=== PATIENT | female | born 1955 | race Caucasian/White ===

== ENCOUNTER 2020-05-02 09:30 | Outpatient (RCR) | payer OTHER, SELFPAY ==
--- NOTE | 2020-04-23 12:36 | PC.ADMIT ---
Patient is a 65 year old female who was referred by her prescriber Christine Stanley APRN. She started the PHP program today d/t severe anxiety, depression with passive SI, and increase in agitation. Patient stated she is attending [facility] because, I've had anxiety for three years, I've been on so many medications . Pt reports that her anxiety causes her to have depression. Reports poor sleep. Feels medication changes she has had in the past few years have not helped her anxiety. Wants to try group therapy and learn coping skills. Patient feels she can relate to others in the group that have severe anxiety. Pt stated she does have some trauma in her past and feels medication changes have contributed to her PTSD. Appears focused on medication changes and her response to them. Patient reports passive Si over the past few weeks with thoughts of, I can't stand this, it would be easier for everyone if I was not here . Patient denied plan or intent to harm or kill herself. Asked her if she was feeling unsafe who could she reach out to? Patient stated her , and, I am familier with N . Patient also agreed to reach out to staff if feeling unsafe and she gave verbal permission to email her a copy of her safety plan. Medications reconciled with patient, patient's pharmacy, and sploe to Christine Stanley to confirm Effexor dose.
[2020-04-23 13:14] VITALS: BMI 24.9
--- NOTE | 2020-04-23 13:49 | P.HPPSP_ITS ---
HPI Chief Complaint: depression Sources of Information: patient interviewed and chart reviewed HPI Narrative: Patient referred to [facility] by her outpatient psychiatric provider for worsening anxiety. Reports long history of depression and anxiety that was previously well managed by SSRI and PRN lorazepam, until about 3 years ago when previous psychiatric provider left and new provider began to make medication changes and since then she has not felt the same. She reports extreme anxiety all day long, rumination around current medication regimen and feeling stigmatized by being prescribed benzodiazepines. Reports that she felt pressured to enter ATS (detox) to address Lorazepam tapering and withdrawal management--negative experience. Most recent medication change was the addition of Effexor currently at 75mg QD. (last dose increase on 04/01) Current sx: Anxiety from the moment she wakes up. Perseveration around medication and medication administration times. Constant worry that she is never going to feel better Sleep is reported as early awakening--able to fall asleep but awake btwn 4am-5am and does not feel rested Medication trials: Celexa, Trintellex, Wellbutrin, Buspirone, Seroquel, Zoloft, Paxil, Prozac, Cymbalta, Lexapro, Gabapentin, Trileptal, Zyprexa Please see SW intake note for further details [facility] Medical History (Updated 04/23/20 @ 15:20 by Ann Moreno CNP) Hyperlipidemia Hypothyroidism Tinnitus Surgical History (Updated 04/23/20 @ 12:34 by Roxie Stone RN) H/O shoulder surgery History of endometrial ablation Hx of foot surgery Hx of tonsillectomy Diagnostics Vital Signs (24Hr): Body Mass Index 24.9 Meds/Allergies Allergies Allergies Allergy/AdvReac Type Severity Reaction Status Date / Time hydrocortisone Allergy Hives Verified 04/23/20 12:36 Penicillins Allergy Rash Verified 04/23/20 12:36 erythromycin base AdvReac Gastrointestinal Verified 04/23/20 12:36 Upset Mental Status Exam Mental Status Exam Patient Appearance: Well Grooomed and Appropriate Patient Orientation: Person, Place, Time and Situation Level of Consciousness: Awake and Appropriate Patient Behavior: Appropriate, Talkative and Anxious Mood Description: Anxious Affect Description: Anxious Ability to Follow Directions: Excellent Speech Pattern: Clear Thought Process: Intact and Rumination Thought Content: positive for Perseveration and positive for Preoccupation Depressive Symptoms: Increased Anxiety, Difficulty Sleeping and Hopelessness Judgement: Fair Assessment & Plan Assessment & Plan (1) Major depression, recurrent: Status: Acute Code(s): F33.9 - Major depressive disorder, recurrent, unspecified Assessment and Plan: Discussed case with outpatient treatment provider. Plan to increase Effexor to 112.5mg QD (2) Generalized anxiety disorder: Status: Acute Code(s): F41.1 - Generalized anxiety disorder Certification I certify that partial hospital treatment is medically necessary due to the symptoms and problems resulting from the patient's mental illness and the failure to treat the patient at the partial hospital level of care would likely result in the patient requiring inpatient psychiatric care which could not be prevented at a less intensive level of care. Telehealth Telehealth Location of provider rendering services: practice address Location of patient: address on file Telehealth method: video Patient verbally consented to treatment: Yes Patient verbally consented to billing insurance company: Yes Time spent with patient (mins): 40
--- NOTE | 2020-04-24 11:32 | PC.NURSE ---
Called patient to f/u with Effexor prescription. Patient read her prescription bottle over the phone, stated she picked on 04/23/20 Effexor xr 75 mg tab prescription from Christine Stanley APRN. Per Ann Moreno CNP, Effexor is increasing to 112.5 mg. Pharmacy stated she has Effexor 37.5 mg tab waiting for p/u today from Christine Stanley APRN.
--- NOTE | 2020-04-26 15:16 | PC.NURSE ---
I called and spoke to pt about treatment and schedule. She expressed a desire to talk about coping skills more in program, and reported some ambivalence around whether or not the program is helping. Discussed ways to challenge hopelessness, in part by viewing it as a symptom. Pt will zaid to discharge on 05/07/2020.
--- NOTE | 2020-04-29 11:43 | HO.PHPPROGNO ---
Subjective Subjective Date of Service: 04/29/20 Reason For Visit: depression Interim History: Patient reports she increased Effexor dose on evening. Has not noted any side effects, though finds herself worrying about them. She reports difficulty sleeping last evening and is worried this may be related to medication change. Discussed plan to wait an additional week before determining if additional medication changes should be made or not. Supportive listening provided Review of Systems Constitutional: Reports as per HPI and Reports difficulty sleeping Psychiatric: Reports anxiety Mental Status Exam Mental Status Exam Patient Appearance: Well Grooomed Level of Consciousness: Awake, Appropriate and Alert Patient Behavior: Appropriate Mood Description: Anxious Affect Description: Anxious Speech Pattern: Clear Delusions: Not Present Thought Process: Rumination Thought Content: positive for Perseveration Depressive Symptoms: Increased Anxiety and Difficulty Sleeping Judgement: Good Diagnostics Vital Signs (24Hr): Body Mass Index 24.9 Assessment & Plan Assessment & Plan (1) Major depression, recurrent: Status: Acute Code(s): F33.9 - Major depressive disorder, recurrent, unspecified Assessment and Plan: No change to current regimen Follow up one week (2) Generalized anxiety disorder: Status: Acute Code(s): F41.1 - Generalized anxiety disorder Certification I certify that partial hospital treatment is medically necessary due to the symptoms and problems resulting from the patient's mental illness and the failure to treat the patient at the partial hospital level of care would likely result in the patient requiring inpatient psychiatric care which could not be prevented at a less intensive level of care. Greater than 50% of the session was spent on counseling and/or coordination of care Discharge Plan Discharge Attending provider: Be Lee Medications: New venlafaxine 37.5 mg capsule,extended release 24hr 37.5 mg PO BEDTIME Qty: 30 RF: 0 No Action trazodone 50 mg Tablet 25 mg PO BEDTIME RF: 0 levothyroxine 88 mcg Tablet 88 mcg PO 6XW RF: 0 propranolol 10 mg Tablet 10 mg PO BID RF: 0 lorazepam [Ativan] 1 mg Tablet 1 mg PO TID RF: 0 venlafaxine [Effexor XR] 75 mg Capsule,Extended Release 24hr 75 mg PO BEDTIME RF: 0 atorvastatin 10 mg Tablet 10 mg PO BEDTIME RF: 0 levothyroxine 88 mcg Tablet 176 mcg PO QWEEK RF: 0 Telehealth Telehealth Location of provider rendering services: practice address Location of patient: address on file Patient Identification confirmed using: Name, : Yes Telehealth method: video Patient verbally consented to treatment: Yes Patient verbally consented to billing insurance company: Yes Time spent with patient (mins): 15
--- NOTE | 2020-05-01 16:07 | HO.PHPPROGNO ---
Subjective Subjective Date of Service: 05/01/20 Reason For Visit: depression Interim History: Patient requesting follow up reports sleep has been poor, increasing anxiety and shakiness Feels increase in dose is contributing to this Medication Compliance: Yes Side effects from medications: Yes (as reported in HPI) Attending Groups: Yes Review of Systems Constitutional: Reports as per HPI Mental Status Exam Mental Status Exam Patient Appearance: Well Grooomed Patient Orientation: Person, Place, Time and Situation Level of Consciousness: Awake and Alert Patient Behavior: Appropriate and Anxious Mood Description: Anxious Affect Description: Anxious Ability to Follow Directions: Excellent Speech Pattern: Clear Hallucinations: None Delusions: Not Present Thought Process: Rumination Thought Content: positive for Racing Depressive Symptoms: Increased Anxiety, Difficulty Sleeping and Difficulty Concentrating Judgement: Fair Diagnostics Vital Signs (24Hr): Body Mass Index 24.9 Assessment & Plan Assessment & Plan (1) Generalized anxiety disorder: Status: Acute Code(s): F41.1 - Generalized anxiety disorder Assessment and Plan: decrease Effexor dose back to 75mg QD increase trazodone HS dose by 25mg follow up next week (2) Major depression, recurrent: Status: Acute Code(s): F33.9 - Major depressive disorder, recurrent, unspecified Certification I certify that partial hospital treatment is medically necessary due to the symptoms and problems resulting from the patient's mental illness and the failure to treat the patient at the partial hospital level of care would likely result in the patient requiring inpatient psychiatric care which could not be prevented at a less intensive level of care. Greater than 50% of the session was spent on counseling and/or coordination of care Discharge Plan Discharge Attending provider: Be Lee Medications: No Action trazodone 50 mg Tablet 25 mg PO BEDTIME RF: 0 levothyroxine 88 mcg Tablet 88 mcg PO 6XW RF: 0 propranolol 10 mg Tablet 10 mg PO BID RF: 0 lorazepam [Ativan] 1 mg Tablet 1 mg PO TID RF: 0 venlafaxine [Effexor XR] 75 mg Capsule,Extended Release 24hr 75 mg PO BEDTIME RF: 0 atorvastatin 10 mg Tablet 10 mg PO BEDTIME RF: 0 levothyroxine 88 mcg Tablet 176 mcg PO QWEEK RF: 0 Telehealth Telehealth Location of provider rendering services: practice address Location of patient: address on file Patient Identification confirmed using: Name, : Yes Telehealth method: video Patient verbally consented to treatment: Yes Patient verbally consented to billing insurance company: Yes Time spent with patient (mins): 15
--- NOTE | 2020-05-07 07:33 | PC.NURSE ---
LM for pt's therapist, Angelica Carreon, informing her that pt has been discharged and hospitalized.
--- NOTE | 2020-05-07 07:34 | PC.NURSE ---
RM from pt that she had a bad weekend and went to the ED. She said they have secured a bed for her to be admitted inpatient.
== END 2020-05-02 23:55 ==
LOC: HO.PHPA 09:30
PROVIDERS: Visit Provider Psychiatry & Neurology Psychiatry
DX: F33.9 Major depressive disorder, recurrent, unspecified (principal); F41.1 Generalized anxiety disorder
CPT/HCPCS: 90791; 90792; 90853

== ENCOUNTER 2020-05-05 08:43 | Emergency (ER) | payer OTHER, MEDICARE, SELFPAY ==
[2020-05-05 08:55] VITALS: BP 143/77; PULSE 79; RESP 18; TEMP 37.1; O2SAT 97; BMI 24.9
--- NOTE | 2020-05-05 09:01 | ED_ITS ---
HPI - General Adult General Chief complaint: Psychiatric Symptoms Stated complaint: MED REACTION Time Seen by Provider: 05/05/20 08:59 Source: patient Mode of arrival: ambulatory Limitations: no limitations History of Present Illness HPI narrative: 65 y/o female with history of generalized anxiety disorder, hypothyroidism presenting with pins and needles sensation of her lower arms that started in the middle of the night and woke her up. She thinks it might be due to medication changes. She follows with Ann Moreno NP who decreased her Effexor to 75 mg and increased her Trazodone to 25 mg. She states with the increase in Trazodone she falls asleep easily but is up often and has worsening pins and needles sensation in her arms. She is having a hard time sleeping and her anxiety is worsening. She admits to suicidal thoughts and has thought of 3 separate plans to kill herself. She lives with her who is supportive and wants to her get help. She does not feel safe going home because of her worse fantasma anxiety and now suicidal thoughts. MD complaint: anxiety, suicidal thoughts Onset (ago): week(s) Location: upper extremity Radiation: non-radiation Severity: moderate Severity scale (1-10): 6 Quality: other ( tingling ) Pain Consistency: constant Relieving factors: none Exacerbating factors: other (anxiety ) Associated symptoms: other (SI) Treatments prior to arrival: other (ativan 0.5 mg po ) Related Data Home Medications Medication Instructions Recorded Confirmed atorvastatin 10 mg PO BEDTIME 04/23/20 04/23/20 levothyroxine 88 mcg PO 6XW 04/23/20 04/23/20 levothyroxine 176 mcg PO QWEEK 04/23/20 04/23/20 lorazepam [Ativan] 1 mg PO TID 04/23/20 04/23/20 propranolol 10 mg PO BID 04/23/20 04/23/20 trazodone 25 mg PO BEDTIME 04/23/20 04/23/20 venlafaxine [Effexor XR] 75 mg PO BEDTIME 04/23/20 04/23/20 Allergies Allergy/AdvReac Type Severity Reaction Status Date / Time hydrocortisone Allergy Hives Verified 04/23/20 12:36 Penicillins Allergy Rash Verified 04/23/20 12:36 erythromycin base AdvReac Gastrointestinal Verified 04/23/20 12:36 Upset Review of Systems Review of Systems: Constitutional: No Fever, No Chills ENT/Mouth: No sore throat, No Rhinorrhea, No Swallowing Difficulty Eyes: No Eye Pain, No Swelling, No Redness Cardiovascular: No Chest Pain, No SOB, No Orthopnea, No Edema Respiratory: No Cough, No Sputum, No Wheezing, No dyspnea Gastrointestinal: + Nausea, No Vomiting, No Diarrhea, No abdominal Pain Genitourinary: No Dysuria, No Urinary Frequency, No Hematuria Musculoskeletal: No joint pain, No Myalgias Skin: No Skin Lesions, No rash Neuro: No Weakness, + Numbness/Tingling, No Dizziness, No Headache Psych: + Anxiety/Panic, + Depression Heme/Lymph: No Bruising, No Lymphadenopathy Endocrine: No Polyuria, No Polydipsia PMFSH Past Medical History Attestation statement: The following information was validated with the patient. Medical History Hyperlipidemia Hypothyroidism Tinnitus Surgical History (Updated 04/23/20 @ 12:34 by Roxie Stone RN) H/O shoulder surgery History of endometrial ablation Hx of foot surgery Hx of tonsillectomy Social History Social History Household Members: Spouse Smoking Status: Former smoker Advance Directives: No Advance Directives Information Provided: No Physical Exam Vital Signs: Vital Signs: Last Vital Signs Temp 98.8 F 05/05/20 08:55 Pulse 79 05/05/20 08:55 Resp 18 05/05/20 08:55 BP 143/77 H 05/05/20 08:55 Pulse Ox 97 05/05/20 08:55 Body Mass Index 24.9 Appearance: Alert. Oriented X3. No acute distress. Eyes: Pupils equal, round and reactive to light. ENT: Pharynx normal. Neck: Normal inspection. Neck supple. CVS: Normal heart rate and rhythm. Pulses normal. Respiratory: No respiratory distress. Breath sounds normal. Abdomen: Soft and nontender. +BS x4 Skin: Skin warm and dry. Normal skin color. Normal skin turgor. No rashes. Extremities: No lower extremity edema. Neuro: Oriented X 3. No motor deficit. No sensory deficit. Psych: depressed, admits to SI, denies AH/VH. Course Course Course Narrative: 65 y/o female with generalized anxiety presenting with worsening anxiety, sensation of pins and needles in her arms, insomnia that is leading to suicidal thoughts. She admits to 3 different plans - jumping off the [employer] bridge, sitting in her running car in the garage and taking all of her medications at once. Will get basic metabolic workup for tingling sensation including electrolytes and TSH. Will have [facility] evaluate her. Reevaluation(s) Reevaluation #1: Patient seen by CARE team NELLI who has been in contact with her psychiatrist. Inpatient level of care is recommended however given patient's anxiety is it in her best interest not to board in the ER while she awaits an inpatient M5 bed. No beds today but they are anticipating discharges tomorrow. Awaiting CARE team to confirm plan for d/c and return tomorrow with her provider and family. Reevaluation #2: Eryn spoke with Psychiatrist here and patient's who are both comfortable with d/c now and presenting back tomorrow morning for inpatient admission. A M5 bed will be held for her. Patient is agreeable with plan and instructed to return to ER if her symptoms escalate or if she feels unsafe at home. Medical Decision Making Lab Data Result diagrams: 05/05/20 10:04 05/05/20 10:04 Labs: Lab Results 05/05/20 05/05/20 05/05/20 Range/Units 10:04 10:04 10:04 WBC 7.9 (4.8-10.8) X10*3/uL RBC 4.55 (4.20-5.50) X10*6/uL Hgb 14.8 (12.0-16.0) g/dl Hct 44.3 (37-47) % MCV 97.4 (80-98) fL MCH 32.5 (27.0-33.0) pg MCHC 33.4 (31.0-35.0) g/dl RDW 11.9 (11.0-16.0) % Plt Count 219 (160-400) X10*3/uL MPV 11.0 (9.4-12.3) fL Immature Gran % (Auto) 0.3 (0.0-0.4) % Neut % (Auto) 63.4 (45-73) % Lymph % (Auto) 26.4 (20-40) % Bell % (Auto) 8.0 (2-11) % Eos % (Auto) 1.4 (0-4) % Baso % (Auto) 0.5 (0-2) % Lymph # (Auto) 2.1 (1.2-4.9) X10*3/uL Bell # (Auto) 0.6 (0.1-1.2) X10*3/uL Eos # (Auto) 0.1 (0.0-0.4) X10*3/uL Baso # (Auto) 0.0 (0.0-0.2) X10*3/uL Abs Immat Gran (auto) 0.02 (0.00-0.03) X10*3/uL Absolute Neuts (auto) 5.0 (2.0-8.3) X10*3/uL Absolute Nucleated RBC 0.000 (0.0-0.012) X10*3/uL Nucleated RBC % (auto) 0.0 (0.0-0.2) /100WBC Sodium 141 (135-145) mmol/L Potassium 4.6 (3.3-5.1) mmol/l Chloride 106 (96-108) mmol/L Carbon Dioxide 30 H (22-29) mmol/L Anion Gap 10 L (12-20) BUN 14 (9-16) mg/dL Creatinine 0.71 (0.5-1.4) mg/dL Estim Creat Clear Calc 73.7 Estimated GFR > 60 Random Glucose 105 (60-115) mg/dL Calcium 9.2 (8.4-10.2) mg/dL Magnesium 2.0 (1.6-2.6) mg/dL TSH 0.96 (0.32-4.0) mIU/mL Urine Color Urine Appearance Urine pH (5.0-8.0) Ur Specific [place] (1.005-1.025) Urine Protein (NEG-TRACE) MG/DL Urine Glucose (UA) (NEG) MG/DL Urine Ketones (NEG) MG/DL Urine Blood (NEG) Urine Nitrite (NEG) Ur Leukocyte Esterase (NEG) Urine RBC (0) /HPF Urine WBC (0-4) /HPF Ur Squamous Epith Cells /LPF Urine Bacteria /LPF Urine Opiates Screen (Not Detect) Ur Barbiturates Screen (Not Detect) Ur Phencyclidine Scrn (Not Detect) Ur Amphetamines Screen (Not Detect) U Benzodiazepines Scrn (Not Detect) Urine Cocaine Screen (Not Detect) U Marijuana (THC) Screen (Not Detect) Ethyl Alcohol < 10 mg/dL 05/05/20 05/05/20 Range/Units 10:04 10:04 WBC (4.8-10.8) X10*3/uL RBC (4.20-5.50) X10*6/uL Hgb (12.0-16.0) g/dl Hct (37-47) % MCV (80-98) fL MCH (27.0-33.0) pg MCHC (31.0-35.0) g/dl RDW (11.0-16.0) % Plt Count (160-400) X10*3/uL MPV (9.4-12.3) fL Immature Gran % (Auto) (0.0-0.4) % Neut % (Auto) (45-73) % Lymph % (Auto) (20-40) % Bell % (Auto) (2-11) % Eos % (Auto) (0-4) % Baso % (Auto) (0-2) % Lymph # (Auto) (1.2-4.9) X10*3/uL Bell # (Auto) (0.1-1.2) X10*3/uL Eos # (Auto) (0.0-0.4) X10*3/uL Baso # (Auto) (0.0-0.2) X10*3/uL Abs Immat Gran (auto) (0.00-0.03) X10*3/uL Absolute Neuts (auto) (2.0-8.3) X10*3/uL Absolute Nucleated RBC (0.0-0.012) X10*3/uL Nucleated RBC % (auto) (0.0-0.2) /100WBC Sodium (135-145) mmol/L Potassium (3.3-5.1) mmol/l Chloride (96-108) mmol/L Carbon Dioxide (22-29) mmol/L Anion Gap (12-20) BUN (9-16) mg/dL Creatinine (0.5-1.4) mg/dL Estim Creat Clear Calc Estimated GFR Random Glucose (60-115) mg/dL Calcium (8.4-10.2) mg/dL Magnesium (1.6-2.6) mg/dL TSH (0.32-4.0) mIU/mL Urine Color YELLOW Urine Appearance HAZY Urine pH 6.0 (5.0-8.0) Ur Specific [place] 1.025 (1.005-1.025) Urine Protein NEG (NEG-TRACE) MG/DL Urine Glucose (UA) NEG (NEG) MG/DL Urine Ketones NEG (NEG) MG/DL Urine Blood NEG (NEG) Urine Nitrite NEG (NEG) Ur Leukocyte Esterase TRACE H (NEG) Urine RBC 0-2 (0) /HPF Urine WBC 5-9 H (0-4) /HPF Ur Squamous Epith Cells NONE /LPF Urine Bacteria TRACE /LPF Urine Opiates Screen Not Detected (Not Detect) Ur Barbiturates Screen Not Detected (Not Detect) Ur Phencyclidine Scrn Not Detected (Not Detect) Ur Amphetamines Screen Not Detected (Not Detect) U Benzodiazepines Scrn Not Detected (Not Detect) Urine Cocaine Screen Not Detected (Not Detect) U Marijuana (THC) Screen Not Detected (Not Detect) Ethyl Alcohol mg/dL Discharge Plan Discharge Clinical Impression: Generalized anxiety disorder Patient Disposition: Home, Self-Care Instructions: Insomnia (ED), Anxiety (ED) Additional Instructions: Please come back to the hospital tomorrow morning for planned admission for psychiatric care. A bed is being saved for you. Take your medications as prescribed. Recommend taking Benadryl 25 mg tonight to help you sleep. If you have escalating symptoms of anxiety, depression or suicidally at home come back to the ER DARCY. Prescriptions: No Action trazodone 50 mg Tablet 25 mg PO BEDTIME RF: 0 levothyroxine 88 mcg Tablet 88 mcg PO 6XW RF: 0 propranolol 10 mg Tablet 10 mg PO BID RF: 0 lorazepam [Ativan] 1 mg Tablet 1 mg PO TID RF: 0 venlafaxine [Effexor XR] 75 mg Capsule,Extended Release 24hr 75 mg PO BEDTIME RF: 0 atorvastatin 10 mg Tablet 10 mg PO BEDTIME RF: 0 levothyroxine 88 mcg Tablet 176 mcg PO QWEEK RF: 0
--- NOTE | 2020-05-05 09:53 | PC.NURSE ---
care team aware of pt, si with plan.
[2020-05-05 10:10] LABS: MANUAL DIFF FLAG NO
[2020-05-05 10:13] LABS: Basophils Percent Auto 0.5 % (0-2); Eosinophils Absolute Auto 0.1 X10*3/uL (0.0-0.4); Eosinophils Percent Auto 1.4 % (0-4); Hematocrit 44.3 % (37-47); Hemoglobin 14.8 g/dl (12.0-16.0); Imm Gran Abs Auto 0.02 X10*3/uL (0.00-0.03); Imm Gran Pct Auto 0.3 % (0.0-0.4); Lymphocytes Absolute Auto 2.1 X10*3/uL (1.2-4.9); Lymphocytes Percent Auto 26.4 % (20-40); Mean Corpuscular HGB Conc 33.4 g/dl (31.0-35.0); Mean Corpuscular Hemoglobin 32.5 pg (27.0-33.0); Mean Corpuscular Volume 97.4 fL (80-98); Monocytes Absolute Auto 0.6 X10*3/uL (0.1-1.2); Neutrophils Percent Auto 63.4 % (45-73); Platelet Count 219 X10*3/uL (160-400); Red Blood Count 4.55 X10*6/uL (4.20-5.50); Red Cell Distribution Width 11.9 % (11.0-16.0); White Blood Count 7.9 X10*3/uL (4.8-10.8)
[2020-05-05 10:15] LABS: Glucose Urine UA NEG (NEG); Leukocyte Esterase Urine TRACE (NEG); Nitrite Urine NEG (NEG); Specific Gravity - Urine 1.025 (1.005-1.025); Urine Blood NEG (NEG); Urine Ketones NEG (NEG); Urine Protein NEG (NEG-TRACE)
[2020-05-05 10:18] LABS: Appearance Urine HAZY; Color Urine YELLOW
[2020-05-05] MEDS: LORazepam 0.5 MG TABLET PO (10:18)
[2020-05-05 10:32] LABS: Bacteria Urine TRACE /LPF; RBC Urine 0-2 /HPF (0)
[2020-05-05 10:38] LABS: Ethanol < 10 mg/dL
[2020-05-05 10:46] LABS: Anion Gap 10 (12-20); Blood Urea Nitrogen 14 mg/dL (9-16); Calcium 9.2 mg/dL (8.4-10.2); Carbon Dioxide 30 mmol/L (22-29); Chloride 106 mmol/L (96-108); Creatinine Clr Calc Pharmacy 73.7; Estimated Glomerular Filt Rate > 60; Glucose Random 105 mg/dL (60-115); Potassium 4.6 mmol/l (3.3-5.1); Sodium 141 mmol/L (135-145)
[2020-05-05 10:51] LABS: Amphetamine Screen Urine Not Detected (Not Detect); Barbiturates, Urine Not Detected (Not Detect); Benzodiazepines Screen Urine Not Detected (Not Detect); Cannabinoid Screen Urine Not Detected (Not Detect); Cocaine Screen Urine Not Detected (Not Detect); Opiate Screen Urine Not Detected (Not Detect); Phencyclidine Screen Urine Not Detected (Not Detect)
[2020-05-05 11:07] LABS: TSH reflex Free T4 0.96 mIU/mL (0.32-4.0)
== END 2020-05-05 11:45 | disposition home or self-care (01) ==
PROVIDERS: Physician Assistant; Emergency Provider Emergency Medicine Emergency Medical Services; PCP Internal Medicine
DX: F41.1 Generalized anxiety disorder (principal); F43.0 Acute stress reaction; R45.851 Suicidal ideations; T43.215A Adverse effect of selective serotonin and norepinephrine reuptake inhibitors, initial encounter; Y92.9 Unspecified place or not applicable; Z79.899 Other long term (current) drug therapy
CPT/HCPCS: 36415; 80048; 80307; 80320; 81001; 83735; 84443; 85025; 87086; 99284

== ENCOUNTER 2020-05-06 13:04 | Inpatient (IN) | payer OTHER, MEDICARE, SELFPAY ==
[2020-05-06 13:10] VITALS: BP 130/67; PULSE 67; RESP 18; TEMP 36.8; O2SAT 96; BMI 24.9
[2020-05-06 13:48] LABS: COVID-19 Test Negative (Negative); IDNOW Serial# 9DD0AD1C
--- NOTE | 2020-05-06 13:55 | ED.GENADULT ---
HPI - General Adult General Chief complaint: General Medical Stated complaint: covid test then direct admit Time Seen by Provider: 05/06/20 13:55 Source: patient Mode of arrival: ambulatory Limitations: no limitations History of Present Illness HPI narrative: Returns for bed and 5. Patient has history of generalized anxiety disorder has had increasing anxiety suicidal ideation was evaluated in the Emergency yesterday discharge with plan to [facility] bed search from home returns today as bed has been secured on [facility]. She offers no medical complaints. Workup reviewed from 05/05/2020. Onset (ago): day(s) Severity: moderate Pain Consistency: constant Associated symptoms: denies other symptoms Treatments prior to arrival: none Related Data Home Medications Medication Instructions Recorded Confirmed atorvastatin 10 mg PO BEDTIME 04/23/20 04/23/20 levothyroxine 88 mcg PO 6XW 04/23/20 04/23/20 levothyroxine 176 mcg PO QWEEK 04/23/20 04/23/20 lorazepam [Ativan] 1 mg PO TID 04/23/20 04/23/20 propranolol 10 mg PO BID 04/23/20 04/23/20 trazodone 25 mg PO BEDTIME 04/23/20 04/23/20 venlafaxine [Effexor XR] 75 mg PO BEDTIME 04/23/20 04/23/20 Allergies Allergy/AdvReac Type Severity Reaction Status Date / Time hydrocortisone Allergy Hives Verified 04/23/20 12:36 Penicillins Allergy Rash Verified 04/23/20 12:36 erythromycin base AdvReac Gastrointestinal Verified 04/23/20 12:36 Upset Review of Systems Review of Systems: Constitutional: No Weight loss, No Fever, No Chills, No Night Sweats, No Fatigue, No Malaise ENT/Mouth: No Hearing loss, No Ear Pain, No Nasal Congestion, No Sinus Pain, No Hoarseness, No sore throat, No Rhinorrhea, No Swallowing Difficulty Eyes: No Eye Pain, No Swelling, No Redness, No Foreign Body, No Discharge, No Vision Changes Cardiovascular: No Chest Pain, No SOB, No Dyspnea on Exertion, No Orthopnea, No Edema, No Palpitations Respiratory: No Cough, No Sputum, No Wheezing, No Smoke Exposure, No Dyspnea Gastrointestinal: No Nausea, No Vomiting, No Diarrhea, No Constipation, No abdominal Pain, No Hematochezia, No Melena Genitourinary: no irregular bleeding, No Dysuria, No Urinary Frequency, No Hematuria, No Urinary Incontinence, No Urgency, No Flank Pain Musculoskeletal: No joint pain, No Myalgias, No Joint Swelling Skin: No Skin Lesions, No rash Neuro: No Weakness, No Numbness, No Paresthesias, No Loss of Consciousness, No Dizziness, No Headache Psych: noted in HPI , + anxiety/ SI w plan to jump off bridge Heme/Lymph: No Bruising, No Bleeding,No Lymphadenopathy Endocrine: No Polyuria, No Polydipsia, No Temperature Intolerance PMFSH Past Medical History Medical History Hyperlipidemia Hypothyroidism Tinnitus Surgical History H/O shoulder surgery History of endometrial ablation Hx of foot surgery Hx of tonsillectomy Social History Social History Household Members: Spouse Alcohol intake: never Smoking Status: Never smoker Use of substances other than those prescribed or required for medical reasons: No Physical Exam Vital Signs: Vital Signs: Last Vital Signs Temp 98.2 F 05/06/20 13:10 Pulse 67 05/06/20 13:10 Resp 18 05/06/20 13:10 BP 130/67 05/06/20 13:10 Pulse Ox 96 05/06/20 13:10 Body Mass Index 24.9 Reviewed Const: General: cooperative and healthy appearing; No acute distress or intoxicated appearing Nutritional Appearance: average body habitus Orientation/consciousness: patient oriented x3 HENMT: Head: Yes normal to inspection Ears: hearing grossly normal bilaterally Eyes: General: appearance normal, both eyes and all related structures Visual Bowling: normal visual bowling by confrontation Neck: Neck: Yes normal visual inspection and No tender Thyroid: Thyroid normal Chest: Chest palpation & inspection: normal inspection of the chest Resp: Effort & Inspection: normal respiratory effort Auscultation: clear to auscultation bilaterally Cardio: Jugular venous distension: no JVD Rhythm: regular rhythm Heart sounds: S1 normal heart sound present and S2 normal heart sound present GI: Inspection: Yes normal to inspection Palpation (GI): Soft to palpation Percussion: Yes normal to percussion Auscultation: normal bowel sounds : General: Yes no CVA tenderness Back/Spine/Pelvis: Back: no CVA tenderness Skin: General skin exam: no rashes or lesions noted Neuro: General: patient oriented x3 Extrem: General: Yes normal to inspection Course Course Course Narrative: Medically clear for admission to . Rapid COVID negative. Medical Decision Making Lab Data Labs: Lab Results 05/06/20 Range/Units 13:13 COVID-19 ([facility]) Negative (Negative) COVID-19 Clin Com See Note Discharge Plan Discharge Clinical Impression: Generalized anxiety disorder, Major depression, recurrent Patient Disposition: Admitted As Inpatient Prescriptions: No Action trazodone 50 mg Tablet 25 mg PO BEDTIME RF: 0 levothyroxine 88 mcg Tablet 88 mcg PO 6XW RF: 0 propranolol 10 mg Tablet 10 mg PO BID RF: 0 lorazepam [Ativan] 1 mg Tablet 1 mg PO TID RF: 0 venlafaxine [Effexor XR] 75 mg Capsule,Extended Release 24hr 75 mg PO BEDTIME RF: 0 atorvastatin 10 mg Tablet 10 mg PO BEDTIME RF: 0 levothyroxine 88 mcg Tablet 176 mcg PO QWEEK RF: 0
[2020-05-06 13:59] VITALS: BP 113/69; PULSE 68; RESP 16; TEMP 36.8; O2SAT 97
--- NOTE | 2020-05-06 16:18 | MHC.CARE ---
Spoke to patient multiple times throughout the day coordinating her admission, came to the ED today for a COVID swab. Brought to [facility] via transportation security screener, upon arrival to the unit she was tearful and anxious, distressed that she could not have her phone as she uses games and music to cope. Provided support and encouragement, gave a brief tour and showed her to room.
[2020-05-06] MEDS: LORazepam 1 MG TABLET PO (17:34)
[2020-05-06 18:00] VITALS: BP 122/70; PULSE 99; TEMP 36.6
[2020-05-06 20:20] VITALS: BP 122/70; PULSE 99
[2020-05-06] MEDS: Propranolol HCL 10 MG TABLET PO (20:20)
[2020-05-06] MEDS: Venlafaxine HCl ER 75 MG CAP.ER.24H PO (20:20)
--- NOTE | 2020-05-06 21:17 | PC.ADMIT ---
Pt is a 65 year old female who presented to from [facility] ED at approx 16:15 on a CV Status. PT is covid- Utox-. Pt reported and appeared overwhelmed with her anxiety and depressive symptoms. Pt reported inability to sleep. PT diagnosed with generalized anxiety disorder and MDD recurrent. Pt does have out pt services and has community mental health providers. Pt denied SI/hI/VH on admit with no pain. Dr. Lianet Livingston called for orders and notified of admission. Pt is on 15 min safety checks. Pleasant and cooperative on admit but states that she is super anxious. Start treatment plan and monitor for safety checks
--- NOTE | 2020-05-07 | ECG_ITS ---
Test Reason : severe anxiety Blood Pressure : / mmHG Vent. Rate : 076 BPM Atrial Rate : 076 BPM P-R Int : 140 ms QRS Dur : 076 ms QT Int : 404 ms P-R-T Axes : 061 025 019 degrees QTc Int : 454 ms Normal sinus rhythm Possible Left atrial enlargement Borderline ECG No previous ECGs available Referred By: Sophie Negrete Electronically Signed By:ISIAH NICOLE
[2020-05-07 06:25] VITALS: BP 134/77; PULSE 92; RESP 16; TEMP 37; O2SAT 98
[2020-05-07] MEDS: Levothyroxine Sodium 88 MCG TABLET PO (06:33)
[2020-05-07 08:41] VITALS: BP 134/77; PULSE 92
[2020-05-07] MEDS: Propranolol HCL 10 MG TABLET PO ×2 (08:41→20:58)
[2020-05-07] MEDS: LORazepam 0.5 MG TABLET PO ×3 (11:10→20:57)
[2020-05-07] MEDS: Acetaminophen 325 MG TABLET 650 MG PO (14:55)
[2020-05-07] MEDS: hydrOXYzine HCL 25 MG TABLET PO (16:42)
[2020-05-07 18:00] VITALS: BP 152/91; PULSE 89; TEMP 36.2
--- NOTE | 2020-05-07 18:27 | P.HPPS_ITS ---
HPI Chief Complaint: anxiety, depression Sources of Information: patient interviewed, chart reviewed and crisis/core team assessment reviewed HPI Narrative: Nurse practitioners have never helped me . I am here for a psychiatrist. I have tried so many medicines, I feel so hopeless, as the anxiety is just too strong. 65 yo female, reports progressive increase of anxiety, panic sx for the past 36 months without specific precipitant except pt reports sx intensified when pandemic began. Pt reports sx to be so severe she is unable to function. Reports a lifelong hx of SUNITA and success with Lexapro 20 mg daily. Pt had reported feeling tired, Lexapro was decreased to 10 mg and she began to experience insomnia and anxiety. This she reports became a viscious cycle between September-Jun. She made changes in providers-was sent to rehab due to Ativan use, then met with new providers for trials. Reports sleep PHI, JAMIN and no latency sx. Past Psychiatric History: Out Pt: Christine Stanley APRN. Therapist is Angelica Carreon Trials: Paxil, Prozac, Cymbalta, Lexapro, Celexa, Trintellix, Wellbutrin, Sertraline, Buspar, Amoxapine, Seroquel, Olanzapine, Mirtazapine, Gabapentin, Trileptal, Topamax, Trazodone. Hx of work with [facility] [place], Dr. Donald, and [facility]. Reports Mar 2019 Trintellix had mild efficacy. Wellbutrin was added when COVID- 19 began, then changed to Citalopram. In Dec 2019 Propranolol was added and in Feb 2020 Effexor was trialed (sleep is poor after this initiation). [facility] Medical History Hyperlipidemia Hypothyroidism Tinnitus Surgical History H/O shoulder surgery History of endometrial ablation Hx of foot surgery Hx of tonsillectomy Family History: anxiety-mother uses Sertraline, son uses Prozac effectively Anxiety runs on both sides of pt's family Social History: Supportive and children. Works at [employer] Sub[employer] History: Denies Diagnostics Vital Signs (24Hr): Vital Signs - 24 hr 05/06/20 20:20 05/07/20 06:25 05/07/20 08:41 Temperature 98.6 F Pulse Rate 99 92 92 Respiratory Rate 16 Blood Pressure 122/70 134/77 134/77 Pulse Oximetry 98 Body Mass Index 24.9 Labs Labs: Laboratory Results - last 48 hr 05/06/20 13:13 COVID-19 ([facility]) Negative COVID-19 Clin Com See Note Meds/Allergies Meds Home Medications Acetaminophen (Acetaminophen 325 Mg Tablet) 650 mg PO Q6H PRN PRN Reason: Headache/Pain Mild Scale (1-3) Last Admin: 05/07/20 14:55 Dose: 650 mg Documented by: Al Hydroxide/Mg Hydroxide (Magnesium Hydrox/Alum Hydrox 30 Ml Oral.Susp) 30 ml PO Q6H PRN PRN Reason: Heartburn/Nausea Hydroxyzine HCl (Hydroxyzine Hcl 25 Mg Tablet) 25 mg PO BEDTIME PRN PRN Reason: Anxiety Hydroxyzine HCl (Hydroxyzine Hcl 25 Mg Tablet) 25 mg PO Q8H PRN PRN Reason: Anxiety Last Admin: 05/07/20 16:42 Dose: 25 mg Documented by: Levothyroxine Sodium (Levothyroxine Sodium 88 Mcg Tablet) 88 mcg PO [id number] [facility] Last Admin: 05/07/20 06:33 Dose: 88 mcg Documented by: Lorazepam (Lorazepam 0.5 Mg Tablet) 0.5 mg PO TID [facility] Last Admin: 05/07/20 14:24 Dose: 0.5 mg Documented by: Magnesium Hydroxide (Milk Of Magnesia 30 Ml Oral.Susp) 30 ml PO DAILY PRN PRN Reason: Constipation Propranolol HCl (Propranolol Hcl 10 Mg Tablet) 10 mg PO BID [facility]; Protocol Last Admin: 05/07/20 08:41 Dose: 10 mg Documented by: Trazodone HCl (Trazodone Hcl 50 Mg Tablet) 50 mg PO BEDTIME PRN PRN Reason: Insomnia Venlafaxine HCl (Venlafaxine Hcl Er 75 Mg Cap.Er.24h) 75 mg PO BEDTIME [facility] Last Admin: 05/06/20 20:20 Dose: 75 mg Documented by: Allergies Allergies Allergy/AdvReac Type Severity Reaction Status Date / Time hydrocortisone Allergy Hives Verified 04/23/20 12:36 Penicillins Allergy Rash Verified 04/23/20 12:36 erythromycin base AdvReac Gastrointestinal Verified 04/23/20 12:36 Upset Mental Status Exam Mental Status Exam Patient Appearance: Well Grooomed Patient Orientation: Person, Place, Time and Situation Level of Consciousness: Awake, Restless and Alert Patient Behavior: Anxious and Distractible Mood Description: Anxious Affect Description: Constricted Patient Cognition Impaired: No Ability to Follow Directions: Good Speech Pattern: Clear, Appropriate and Spontaneous Speech Memory Description: Intact Hallucinations: None Delusions: Not Present Thought Process: Racing, Distracted and Rumination Thought Content: positive for Issue, positive for Obsessional Thoughts, positive for Circumstantial and positive for Suicidal Ideation (passive) Depressive Symptoms: Increased Anxiety, Increased Irritability, Loss of Int. in Activity, Feelings of Worthlessness, Hopelessness, Isolating-Friends/Family, Increased Fatigue, Thoughts of /Suicide (passive), Low Self Esteem, Loss of Energy and Difficulty Concentrating Abnormal Motor Activity Signs and Symptoms: Agitation and Restlessness Judgement: Fair Assessment & Plan Assessment & Plan (1) Generalized anxiety disorder: Status: Acute Code(s): F41.1 - Generalized anxiety disorder Assessment and Plan: -Pt refuses to work with nurse practitioners as she feels, from previous experience, she was not treated effectively. -Will complete labs, EKG and transfer to Dr. Lee, who is willing. (2) Major depression, recurrent: Status: Acute Code(s): F33.9 - Major depressive disorder, recurrent, unspecified Patient educated on: diagnosis, medication risk/benefits and therapeutic strategies Informed Consent: understands and further education needed Reason for continued inpatient stay Substantial Risk for: inability to function and rapid decompensation
[2020-05-07 19:23] LABS: MANUAL DIFF FLAG NO
[2020-05-07 19:29] LABS: Basophils Absolute Auto 0.1 X10*3/uL (0.0-0.2); Basophils Percent Auto 0.6 % (0-2); Eosinophils Absolute Auto 0.2 X10*3/uL (0.0-0.4); Eosinophils Percent Auto 2.2 % (0-4); Hematocrit 45.8 % (37-47); Hemoglobin 14.9 g/dl (12.0-16.0); Imm Gran Abs Auto 0.04 X10*3/uL (0.00-0.03); Imm Gran Pct Auto 0.5 % (0.0-0.4); Lymphocytes Absolute Auto 3.1 X10*3/uL (1.2-4.9); Lymphocytes Percent Auto 35.5 % (20-40); Mean Corpuscular HGB Conc 32.5 g/dl (31.0-35.0); Mean Corpuscular Volume 98.5 fL (80-98); Mean Platelet Volume 11.4 fL (9.4-12.3); Monocytes Absolute Auto 0.7 X10*3/uL (0.1-1.2); Monocytes Percent Auto 8.3 % (2-11); Neutrophils Absolute Auto 4.7 X10*3/uL (2.0-8.3); Neutrophils Percent Auto 52.9 % (45-73); Platelet Count 231 X10*3/uL (160-400); Red Blood Count 4.65 X10*6/uL (4.20-5.50); Red Cell Distribution Width 11.9 % (11.0-16.0); White Blood Count 8.8 X10*3/uL (4.8-10.8)
[2020-05-07 19:56] LABS: Alanine Aminotransferase 29 U/L (0-31); Albumin Level 4.3 g/dL (3.5-5.0); Alkaline Phosphatase 79 U/L (39-117); Anion Gap 10 (12-20); Aspartate Amino Transferase 20 U/L (5-31); Bilirubin Total 0.4 mg/dL (0.0-1.0); Blood Urea Nitrogen 19 mg/dL (9-16); Calcium 9.5 mg/dL (8.4-10.2); Carbon Dioxide 34 mmol/L (22-29); Chloride 102 mmol/L (96-108); Creatinine Clr Calc Pharmacy 60.9; Estimated Glomerular Filt Rate > 60; Glucose Random 109 mg/dL (60-115); Magnesium 2.1 mg/dL (1.6-2.6); Potassium 4.2 mmol/l (3.3-5.1); Sodium 142 mmol/L (135-145); Total Protein 6.3 g/dL (6.5-8.0)
[2020-05-07 20:16] LABS: TSH reflex Free T4 0.67 mIU/mL (0.32-4.0); Thyroid Stimulating Hormone 0.74 uIU/mL (0.32-4.0); Vitamin D 25-OH Total 38.6 ng/mL (>30)
[2020-05-07 20:29] LABS: Folate 17.5 ng/mL (> or = 4.0); Vitamin B12 417 pg/mL (200-900)
[2020-05-07] MEDS: Venlafaxine HCl ER 75 MG CAP.ER.24H PO (20:57)
[2020-05-07 20:58] VITALS: BP 152/91; PULSE 89
[2020-05-08] MEDS: hydrOXYzine HCL 25 MG TABLET PO ×2 (01:39→11:13)
[2020-05-08] MEDS: traZODone HCL 50 MG TABLET PO (01:53)
[2020-05-08 05:55] VITALS: BP 119/61; PULSE 81; RESP 16; TEMP 36.4; O2SAT 97
[2020-05-08] MEDS: Levothyroxine Sodium 88 MCG TABLET PO (06:36)
[2020-05-08 08:12] VITALS: BP 119/61; PULSE 81
[2020-05-08] MEDS: LORazepam 0.5 MG TABLET PO (08:12)
[2020-05-08] MEDS: Propranolol HCL 10 MG TABLET PO ×3 (08:12→21:21)
--- NOTE | 2020-05-08 09:50 | P.PNPSI_ITS ---
Subjective Subjective Date of Service: 05/16/20 Reason For Visit: anxiety, depression Subjective Notes: Conditional Voluntary Interim History: Pt anxious ruminating hopeless helpless at times no si agreeable to klonapin 1 bid olanzapine hs feels safe going home to manage meds Medication Compliance: Yes Side effects from medications: Yes Mental Status Exam Mental Status Exam Patient Appearance: Well Grooomed Level of Consciousness: Awake and Appropriate Patient Behavior: Appropriate Mood Description: Depressed and Anxious Affect Description: Anxious, Blunted and Apprehensive Ability to Follow Directions: Good Speech Pattern: Perseverating Memory Description: Intact Hallucinations: None Delusions: Not Present Thought Content: positive for Obsessional Thoughts and positive for Suicidal Ideation (denies intent ) Depressive Symptoms: Increased Anxiety, Increased Irritability and Difficulty Concentrating Judgement and Insight: impaired insight at times Diagnostics Vital Signs (24Hr): Vital Signs - 24 hr 05/07/20 18:00 05/07/20 20:58 05/08/20 05:55 Temperature 97.2 F 97.6 F Pulse Rate 89 89 81 Respiratory Rate 16 Blood Pressure 152/91 H 152/91 H 119/61 Pulse Oximetry 97 05/08/20 08:12 Temperature Pulse Rate 81 Respiratory Rate Blood Pressure 119/61 Pulse Oximetry Body Mass Index 24.9 Labs Results: 05/07/20 19:12 05/07/20 19:12 Labs: Laboratory Results - last 48 hr 05/06/20 05/07/20 05/07/20 13:13 19:12 19:12 WBC 8.8 RBC 4.65 Hgb 14.9 Hct 45.8 MCV 98.5 H MCH 32.0 MCHC 32.5 RDW 11.9 Plt Count 231 MPV 11.4 Immature Gran % (Auto) 0.5 H Neut % (Auto) 52.9 Lymph % (Auto) 35.5 [place] % (Auto) 8.3 Eos % (Auto) 2.2 Baso % (Auto) 0.6 Lymph # (Auto) 3.1 [place] # (Auto) 0.7 Eos # (Auto) 0.2 Baso # (Auto) 0.1 Abs Immat Gran (auto) 0.04 H Absolute Neuts (auto) 4.7 Absolute Nucleated RBC 0.000 Nucleated RBC % (auto) 0.0 Sodium 142 Potassium 4.2 Chloride 102 Carbon Dioxide 34 H Anion Gap 10 L BUN 19 H Creatinine 0.86 Estim Creat Clear Calc 60.9 Estimated GFR > 60 Random Glucose 109 Calcium 9.5 Magnesium 2.1 Total Bilirubin 0.4 AST 20 ALT 29 Alkaline Phosphatase 79 Total Protein 6.3 L Albumin 4.3 Vitamin B12 25-OH Vitamin D Total 38.6 Folate TSH 0.74 COVID-19 ([facility]) Negative COVID-19 Clin Com See Note 05/07/20 05/07/20 19:12 19:12 WBC RBC Hgb Hct MCV MCH MCHC RDW Plt Count MPV Immature Gran % (Auto) Neut % (Auto) Lymph % (Auto) [place] % (Auto) Eos % (Auto) Baso % (Auto) Lymph # (Auto) [place] # (Auto) Eos # (Auto) Baso # (Auto) Abs Immat Gran (auto) Absolute Neuts (auto) Absolute Nucleated RBC Nucleated RBC % (auto) Sodium Potassium Chloride Carbon Dioxide Anion Gap BUN Creatinine Estim Creat Clear Calc Estimated GFR Random Glucose Calcium Magnesium Total Bilirubin AST ALT Alkaline Phosphatase Total Protein Albumin Vitamin B12 417 25-OH Vitamin D Total Folate 17.5 TSH 0.67 COVID-19 ([facility]) COVID-19 Clin Com Medications Medications Current Medications Generic Name Dose Route Start Last Admin Trade Name Freq PRN Reason Stop Dose Admin Acetaminophen 650 mg 05/06/20 15:42 05/07/20 14:55 Acetaminophen 325 Mg Tablet PO 650 mg Q6H PRN Administration Headache/Pain Mild Scale (1-3) Al Hydroxide/Mg Hydroxide 30 ml 05/06/20 15:42 Magnesium Hydrox/Alum Hydrox 30 Ml Oral.Susp PO Q6H PRN Heartburn/Nausea Hydroxyzine HCl 25 mg 05/06/20 15:42 05/08/20 01:39 Hydroxyzine Hcl 25 Mg Tablet PO 25 mg BEDTIME PRN Administration Anxiety Hydroxyzine HCl 25 mg 05/07/20 16:30 05/07/20 16:42 Hydroxyzine Hcl 25 Mg Tablet PO 25 mg Q8H PRN Administration Anxiety Levothyroxine Sodium 88 mcg 05/07/20 06:00 05/08/20 06:36 Levothyroxine Sodium 88 Mcg Tablet PO 88 mcg [id number]@0600 [facility] Administration Lorazepam 0.5 mg 05/07/20 15:00 05/08/20 08:12 Lorazepam 0.5 Mg Tablet PO 0.5 mg TID [facility] Administration Magnesium Hydroxide 30 ml 05/06/20 15:42 Milk Of Magnesia 30 Ml Oral.Susp PO DAILY PRN Constipation Propranolol HCl 10 mg 05/06/20 21:00 05/08/20 08:12 Propranolol Hcl 10 Mg Tablet PO 10 mg BID [facility] Administration Protocol Trazodone HCl 50 mg 05/06/20 15:42 05/08/20 01:53 Trazodone Hcl 50 Mg Tablet PO 50 mg BEDTIME PRN Administration Insomnia Venlafaxine HCl 75 mg 05/06/20 21:00 05/07/20 20:57 Venlafaxine Hcl Er 75 Mg Cap.Er.24h PO 75 mg BEDTIME [facility] Administration Allergies Allergies Allergy/AdvReac Type Severity Reaction Status Date / Time hydrocortisone Allergy Hives Verified 04/23/20 12:36 Penicillins Allergy Rash Verified 04/23/20 12:36 erythromycin base AdvReac Gastrointestinal Verified 04/23/20 12:36 Upset Assessment & Plan Assessment & Plan (1) Generalized anxiety disorder: Status: Acute Code(s): F41.1 - Generalized anxiety disorder (2) Major depression, recurrent: Status: Acute Code(s): F33.9 - Major depressive disorder, recurrent, unspecified Assessment and Plan: lower effexor not helpful would taper d/c outpt Greater than 50% of the session was spent on counseling and/or coordination of care
[2020-05-08] MEDS: clonazePAM 1 MG TABLET PO (13:19)
[2020-05-08 14:15] VITALS: BP 115/73; PULSE 101
[2020-05-08] MEDS: Acetaminophen 325 MG TABLET 650 MG PO (17:23)
[2020-05-08 17:52] VITALS: BP 125/62; PULSE 88; RESP 18; TEMP 36.8; O2SAT 99
[2020-05-08 18:00] VITALS: BP 125/62; PULSE 88; RESP 18; TEMP 36.8; O2SAT 99
[2020-05-08 21:21] VITALS: BP 135/75; PULSE 75
[2020-05-08] MEDS: OLANZapine 2.5 MG TABLET PO (21:23)
[2020-05-08] MEDS: clonazePAM 0.5 MG TABLET PO (21:28)
[2020-05-08] MEDS: Venlafaxine HCl ER 37.5 MG CAP.ER.24H PO (22:14)
[2020-05-09 06:00] VITALS: BP 117/68; PULSE 77; TEMP 36.7; O2SAT 98
[2020-05-09] MEDS: Levothyroxine Sodium 88 MCG TABLET PO (06:38)
[2020-05-09 08:53] VITALS: BP 117/68; PULSE 107
[2020-05-09] MEDS: Propranolol HCL 10 MG TABLET PO ×3 (08:53→20:41)
[2020-05-09] MEDS: clonazePAM 0.5 MG TABLET PO ×2 (08:54→12:45)
[2020-05-09 14:38] VITALS: BP 112/68; PULSE 75
[2020-05-09] MEDS: OLANZapine 2.5 MG TABLET PO ×2 (16:54→20:39)
[2020-05-09] MEDS: Venlafaxine HCl ER 37.5 MG CAP.ER.24H PO (20:40)
[2020-05-09] MEDS: clonazePAM 1 MG TABLET PO (20:40)
[2020-05-09 20:41] VITALS: BP 117/58; PULSE 75
[2020-05-09 20:45] VITALS: BP 117/58; PULSE 75; TEMP 36.3
[2020-05-10] MEDS: Levothyroxine Sodium 88 MCG TABLET PO (06:18)
[2020-05-10 06:50] VITALS: BP 108/71; PULSE 79; RESP 16; TEMP 36.4; O2SAT 98
[2020-05-10 09:19] VITALS: BP 108/71; PULSE 79
[2020-05-10] MEDS: clonazePAM 1 MG TABLET PO (09:19)
[2020-05-10] MEDS: Propranolol HCL 10 MG TABLET PO (09:19)
--- NOTE | 2020-05-10 11:40 | P.PNPSI_ITS ---
Subjective Subjective Date of Service: 05/11/20 Reason For Visit: anxiety, depression Subjective Notes: Conditional Voluntary Interim History: Pt planned for dc today, arranged by dr Lee doing better some light headedness from tid dosing of propranlol discussed strategies for management Medication Compliance: Yes Side effects from medications: Yes (mild light headedness or dizziness) Attending Groups: Yes Review of Systems Medical Review of Systems: changed Review of Systems: see note above Mental Status Exam Mental Status Exam Patient Appearance: Well Grooomed Patient Orientation: Person, Place, Time and Situation Level of Consciousness: Awake Patient Behavior: Appropriate Mood Description: Calm Affect Description: Calm Patient Cognition Impaired: No Ability to Follow Directions: Good Speech Pattern: Clear Hallucinations: None Delusions: Not Present Thought Process: Intact Thought Content: positive for Intact Judgement: Good Diagnostics Vital Signs (24Hr): Vital Signs - 24 hr 05/09/20 14:38 05/09/20 20:41 05/09/20 20:45 Temperature 97.4 F Pulse Rate 75 75 75 Respiratory Rate Blood Pressure 112/68 117/58 L 117/58 L Pulse Oximetry 05/10/20 06:50 05/10/20 09:19 Temperature 97.6 F Pulse Rate 79 79 Respiratory Rate 16 Blood Pressure 108/71 108/71 Pulse Oximetry 98 Body Mass Index 24.9 Labs Results: 05/07/20 19:12 05/07/20 19:12 Medications Medications Current Medications Generic Name Dose Route Start Last Admin Trade Name Freq PRN Reason Stop Dose Admin Acetaminophen 650 mg 05/06/20 15:42 05/08/20 17:23 Acetaminophen 325 Mg Tablet PO 650 mg Q6H PRN Administration Headache/Pain Mild Scale (1-3) Al Hydroxide/Mg Hydroxide 30 ml 05/06/20 15:42 Magnesium Hydrox/Alum Hydrox 30 Ml Oral.Susp PO Q6H PRN Heartburn/Nausea Clonazepam 0.5 mg 05/08/20 17:35 05/09/20 12:45 Clonazepam 0.5 Mg Tablet PO 0.5 mg BID PRN Administration anxiety/restlessness Clonazepam 1 mg 05/09/20 21:00 05/10/20 09:19 Clonazepam 1 Mg Tablet PO 1 mg BID [facility] Administration Hydroxyzine HCl 25 mg 05/06/20 15:42 05/08/20 01:39 Hydroxyzine Hcl 25 Mg Tablet PO 25 mg BEDTIME PRN Administration Anxiety Levothyroxine Sodium 88 mcg 05/07/20 06:00 05/10/20 06:18 Levothyroxine Sodium 88 Mcg Tablet PO 88 mcg [id number]@0600 [facility] Administration Magnesium Hydroxide 30 ml 05/06/20 15:42 Milk Of Magnesia 30 Ml Oral.Susp PO DAILY PRN Constipation Olanzapine 2.5 mg 05/08/20 21:00 05/09/20 20:39 Olanzapine 2.5 Mg Tablet PO 2.5 mg BEDTIME [facility] Administration Olanzapine 2.5 mg 05/08/20 17:31 05/09/20 16:54 Olanzapine 2.5 Mg Tablet PO 2.5 mg BID PRN Administration anxiety/restlessness Propranolol HCl 10 mg 05/08/20 14:15 05/10/20 09:19 Propranolol Hcl 10 Mg Tablet PO 10 mg TID [facility] Administration Protocol Trazodone HCl 50 mg 05/06/20 15:42 05/08/20 01:53 Trazodone Hcl 50 Mg Tablet PO 50 mg BEDTIME PRN Administration Insomnia Venlafaxine HCl 37.5 mg 05/08/20 21:45 05/09/20 20:40 Venlafaxine Hcl Er 37.5 Mg Cap.Er.24h PO 37.5 mg BEDTIME [facility] Administration Allergies Allergies Allergy/AdvReac Type Severity Reaction Status Date / Time hydrocortisone Allergy Hives Verified 04/23/20 12:36 Penicillins Allergy Rash Verified 04/23/20 12:36 erythromycin base AdvReac Gastrointestinal Verified 04/23/20 12:36 Upset Assessment & Plan Assessment & Plan (1) Major depression, recurrent: Status: Acute Code(s): F33.9 - Major depressive disorder, recurrent, unspecified Assessment and Plan: stable for d (2) Generalized anxiety disorder: Status: Acute Code(s): F41.1 - Generalized anxiety disorder Assessment and Plan: some s/e from [facility] discussed timing of doses for management Greater than 50% of the session was spent on counseling and/or coordination of care
[2020-05-10 14:32] VITALS: BP 111/57; PULSE 92
--- NOTE | 2020-05-10 20:34 | PM.PSYDC ---
DS: Providers Provider Date of Service: 05/10/20 Date of admission: 05/06/20 15:01 Primary care physician: Cristiana Weeks MD DS: Diagnosis Discharge Diagnosis (1) Generalized anxiety disorder: Status: Acute (2) Major depression, recurrent: Status: Acute DS: Medications Discharge Medications Home Medications: Home Medications Medication Instructions Recorded Confirmed atorvastatin 10 mg PO BEDTIME 04/23/20 04/23/20 levothyroxine 88 mcg PO 6XW 04/23/20 05/06/20 levothyroxine 176 mcg PO QWEEK 04/23/20 04/23/20 Previous Rx's Medication Instructions Recorded clonazepam 1 mg PO BID 15 Days #35 tab 05/10/20 olanzapine 2.5 mg PO BEDTIME 30 Days #40 tab 05/10/20 venlafaxine 37.5 mg PO BEDTIME #30 cap 05/10/20 propranolol 10 mg PO TID #45 tab 05/11/20 Discharge Plan Discharge Patient Disposition: Home, Self-Care Referrals: Angelica Carreon (therapist) [Other] - 05/15/20 12:00 pm Cristiana Weeks MD [Primary Care Provider] - Judie Stanley APRN [Advanced Practice Nurse] - 05/14/20 () Discharge Medications: New venlafaxine 37.5 mg Capsule,Extended Release 24hr 37.5 mg PO BEDTIME Qty: 30 RF: 0 clonazepam 1 mg Tablet 1 mg PO BID 15 Days Qty: 35 RF: 0 olanzapine 2.5 mg Tablet 2.5 mg PO BEDTIME 30 Days Qty: 40 RF: 0 propranolol 10 mg Tablet 10 mg PO TID Qty: 45 RF: 0 Continued levothyroxine 88 mcg Tablet 88 mcg PO 6XW RF: 0 atorvastatin 10 mg Tablet 10 mg PO BEDTIME RF: 0 levothyroxine 88 mcg Tablet 176 mcg PO QWEEK RF: 0 Discontinued trazodone 50 mg Tablet 25 mg PO BEDTIME RF: 0 lorazepam [Ativan] 1 mg Tablet 1 mg PO TID RF: 0 venlafaxine [Effexor XR] 75 mg Capsule,Extended Release 24hr 75 mg PO BEDTIME RF: 0 Discharge Orders: Discharge Order (Routine); Ordered 05/10/20 Ordered By: Lianet Bloom Diet: advance to usual diet Activity on Discharge: As tolerated Stand Alone Forms: Community Support Visit Report Forms: Patient Portal Discharge page Care Plan Goals: stable mood improved anxiety and stress tolerance no self-harm Health Concerns: recurrent anxiety and depression Plan of Treatment: psychotherapy yoga relaxation techniques reading look up Meuse headband clonazepam twice a day may take a half tablet daily as needed for anxiety Effexor lowered to 37.5 mg daily consideration will be given to stopping unless you response to lower dose consider use of Anafranil discuss with Harsha Grier nurse practitioner olanzapine 2.5 mg at bedtime you may take additional half to 1 tab daily he his house Patient Instructions: Depression (DC), Help Prevent Suicide (DC) Discharge Date/Time: 05/10/20 14:42 DS: Summary Hospital Course Hospital Course: HPI Chief Complaint: depression Sources of Information: patient interviewed and chart reviewed HPI Narrative: Patient referred to [facility] by her outpatient psychiatric provider for worsening anxiety. Reports long history of depression and anxiety that was previously well managed by SSRI and PRN lorazepam, until about 3 years ago when previous psychiatric provider left and new provider began to make medication changes and since then she has not felt the same. She reports extreme anxiety all day long, rumination around current medication regimen and feeling stigmatized by being prescribed benzodiazepines. Reports that she felt pressured to enter ATS (detox) to address Lorazepam tapering and withdrawal management--negative experience. Most recent medication change was the addition of Effexor currently at 75mg QD. (last dose increase on 04/01) Current sx: Anxiety from the moment she wakes up. Perseveration around medication and medication administration times. Constant worry that she is never going to feel better Sleep is reported as early awakening--able to fall asleep but awake btwn 4am-5am and does not feel rested Medication trials: Celexa, Trintellex, Wellbutrin, Buspirone, Seroquel, Zoloft, Paxil, Prozac, Cymbalta, Lexapro, Gabapentin, Trileptal, Zyprexa Please see SW intake note for further details [facility] Medical History (Updated 04/23/20 @ 15:20 by Ann Moreno CNP) Hyperlipidemia Hypothyroidism Tinnitus Surgical History (Updated 04/23/20 @ 12:34 by Roxie Stone RN) H/O shoulder surgery History of endometrial ablation Hx of foot surgery Hx of tonsillectomy HOSPITAL COURSE THE PATIENT WAS ADMITTED TO THE [facility] FOR PS[facility] ON A VOLUNTARY BASIS PATIENT WAS QUITE DEPRESSED ANXIOUS RUMINATING WITH OBSESSIONAL THOUGHTS FEARS REGARDING MEDICATION SIDE EFFECTS. A PATIENT WAS AMBIVALENT REGARDING TRYING DIFFERENT MEDICATION AND WAS SOMEWHAT AMBIVALENT ABOUT BEING IN THE HOSPITAL. THE REQUIREMENT WAS QUITE ANXIETY PROVOKING FOR THE PATIENT . PATIENT DESCRIBED INTERMITTENT THOUGHTS THAT SHE WISHED SHE WERE BUT DENIED PLAN OR INTENT. EVENTUALLY WITH MUCH ENCOURAGEMENT THE PATIENT AGREED TO TAPER EFFEXOR WHICH DID NOT APPEAR TO BE HELPFUL AND MAY BEEN CONTRIBUTING TO ANXIETY CLONAZEPAM WAS STARTED INCREASED UP TO 1 MG TWICE A DAY OLANZAPINE STARTED FOR TREATMENT RESISTANT ANXIETY AND DEPRESSION. THE PATIENT WAS QUITE INSISTENT ON BEING DISCHARGED May STATING THAT THE ENVIRONMENT OF THE UNIT WAS OVERLY STIMULATING IN CONTRIBUTING TO INCREASED ANXIETY. CASE WAS REVIEWED WITH HER OUTPATIENT PSYCHIATRIC PROVIDER HARSHA GRIER. EFFEXOR WAS LOWERED TO 37.5 MG CLONAZEPAM 1 MG TWICE A DAY OLANZAPINE 2.5 MG AT BEDTIME WITH A DATE DAILY P.R.N.. THE PATIENT WAS DISCHARGED BY DR. LIANET BLOOM CONSIDERATION COULD BE GIVEN TO THE POSSIBILITY OF ECT IF NEEDED IN THE FUTURE PATIENT STATED SHE AND HER FELT SAFE WITH HER BEING DISCHARGED SHE CONTINUED TO HAVE ANXIETY AND DEPRESSIVE SYMPTOMS. Time Spent with Patient Time attestation: Total time spent providing and/or coordinating discharge services:
== END 2020-05-10 14:42 | disposition home or self-care (01) | DRG 751 ==
LOC: HO.ED 14:08 → HO.PM5 15:06
PROVIDERS: Clinical Nurse Specialist Psychiatric/Mental Health, Adult; Admitting Provider Psychiatry & Neurology Psychiatry; Emergency Provider Emergency Medicine Emergency Medical Services; PCP Internal Medicine; Visit Provider Psychiatry & Neurology Psychiatry
DX: F33.9 Major depressive disorder, recurrent, unspecified (principal); R45.851 Suicidal ideations; F41.1 Generalized anxiety disorder; E03.9 Hypothyroidism, unspecified; E78.5 Hyperlipidemia, unspecified; Z20.828 Contact with and (suspected) exposure to other viral communicable diseases; Z88.0 Allergy status to penicillin; Z79.890 Hormone replacement therapy; Z79.899 Other long term (current) drug therapy
CPT/HCPCS: 36415; 80053; 82306; 82607; 82746; 83735; 84443; 85025; 87635; 93005; 99223; 99232; 99283; 99285

== ENCOUNTER 2021-04-11 13:00 | Outpatient (RCR) | payer OTHER, SELFPAY ==
--- NOTE | 2021-02-03 21:09 | P.CONTMS_ITS ---
History of Present Illness General Data Date of Service: 02/03/21 Reason for consult: tms evaluation forced severe depression and anxiety Requesting provider: Judie Stanley History of Present Illness The patient is a 66-year-old female history of severe recurrent depression generalized anxiety disorder last seen in April of 2020 under similar circumstances. The patient has been feeling quite desperate depressed anxious ruminating obsessional concerns on a daily basis regarding medication whether it is helping her or making her worse. She has most recently been on Zyprexa 5 mg Luvox was recently increased to 250 mg. Patient is anxious ruminating hopeless helpless despondent with thoughts that she would be better off . She denies intent to hurt herself stating her connection family helps her. There are no psychotic symptoms. No classic obsessional OCD thoughts such as images of violence or sex no significant checking or cleaning rituals she does ruminate for much of the day and has a hard time concentrating and functioning. She has not had ECT or TMS treatment. The patient is getting increasingly desperate head has been about 3 years since she felt like herself. No manic symptoms noted. Patient does take medicine as prescribed. She has not had trials of Depakote Trileptal or Lamictal. She has not tried Anafranil. Past Psychiatric History/Medication Trials: Since the patient has been in this episode she has had significant trials of Effexor to 150 mg citalopram to 30 mg escitalopram 20 mg fluvoxamine 250 mg quetiapine 100 mg Trintellix 20 mg with reported no response adequate trials and compliance buspirone 15 b.i.d. Wellbutrin up to 450 mg daily COUNT INCLUDES THE [facility] Medical History Hyperlipidemia Hypothyroidism Tinnitus Surgical History H/O shoulder surgery History of endometrial ablation Hx of foot surgery Hx of tonsillectomy Family History: anxiety-mother uses Sertraline, son uses Prozac effectively Anxiety runs on both sides of pt's family Social History: Supportive and children. Works at [employer] Substance History: none Trauma History: none although past 3 years of severe symptomatology and not responding has been quite traumatic Meds/Allergies Meds Narrative: Current medication includes Luvox to 150 mg daily Zyprexa 2.5-5 mg daily clonazepam 0.5 mg in the morning 1 mg in the afternoon Levothyroxine 88 micro g daily propranolol t.i.d. 10 mg Allergies Allergies Allergy/AdvReac Type Severity Reaction Status Date / Time hydrocortisone Allergy Hives Verified 04/23/20 12:36 Penicillins Allergy Rash Verified 04/23/20 12:36 erythromycin base AdvReac Gastrointestinal Verified 04/23/20 12:36 Upset Mental Status Exam Mental Status Exam Level of Consciousness: Awake Patient Behavior: Appropriate Mood Description: Constricted, Anxious, Sad and Apprehensive Affect Description: Constricted, Anxious and Apprehensive Patient Cognition Impaired: No Ability to Follow Directions: Excellent Speech Pattern: Clear and Appropriate Hallucinations: None Delusions: Not Present Thought Content: positive for Obsessional Thoughts and positive for Suicidal Ideation (Thought she would be better off denies intent states she can maintain safety) Depressive Symptoms: Increased Anxiety, Loss of Int. in Activity, Hopelessness, Isolating-Friends/Family, Thoughts of /Suicide and Difficulty Concentrating Judgement: Good Judgement and Insight: Patient understanding she needs help accepting of treatment asking responsible questions able to take in information Assessment & Plan Assessment & Plan (1) Major depressive disorder, recurrent severe without psychotic features: Status: Acute Code(s): F33.2 - Major depressive disorder, recurrent severe without psychotic features Assessment and Plan: see below (2) Generalized anxiety disorder: Status: Acute Code(s): F41.1 - Generalized anxiety disorder Assessment and Plan: The patient is a 66-year-old female with history of severe recurrent depression generalized anxiety obsessional symptoms not responded to standard treatment. I did discuss with the patient different treatment options and we went over the pros and cons of TMS. We also discussed the patient's ability to maintain safety as an outpatient which she states she can do including staying safe with medication. I did also briefly discussed with the patient option of ECT if she did not respond or tolerate TMS. Case reviewed and discussed with Christine Damian Patient has no contraindications to TMS. No history of surgery above the header neck no metallic implants no cochlear implants no pacemaker no history of seizures. Greater than 50% of the session was spent on counseling and/or coordination of care Patient educated on: diagnosis, medication risk/benefits, ECT and TMS Informed Consent: understands
--- NOTE | 2021-02-24 17:51 | HO.TMSDAILY2 ---
TMS Daily Progress Note Daily TMS Progress Note Date of Service: 02/24/21 Week #: 1 Treatment #(06-08): 1 PHQ-9 Pre-Treatment (06-05): 23 PHQ-9 Most Recent (06-05): 23 Reviewed: TMS Mapping/Re-mapping completed Verification: I have reviewed the TMS Pilot Plant Research Technician Note and agree with the contents. The patient remains a candidate to continue TMS treatment per protocol.
--- NOTE | 2021-02-25 17:57 | HO.TMSDAILY2 ---
TMS Daily Progress Note Daily TMS Progress Note Date of Service: 02/25/21 Week #: 1 Treatment #(06-08): 2 PHQ-9 Pre-Treatment (06-05): 23 PHQ-9 Most Recent (06-05): 23 Reviewed: TMS Tech Note Reviewed Verification: I have reviewed the TMS Epidemiology Intern Note and agree with the contents. The patient remains a candidate to continue TMS treatment per protocol.
--- NOTE | 2021-02-25 21:40 | P.PNPS_ITS ---
TMS Daily Progress Note Daily TMS Progress Note Date of Service: 02/25/21 Week #: 1 Treatment #(06-08): 2 PHQ-9 Pre-Treatment (06-05): 23 PHQ-9 Most Recent (06-05): 23 Reviewed: TMS Tech Note Reviewed Verification: I have reviewed the TMS Head Wood Grinder Note and agree with the contents. The patient remains a candidate to continue TMS treatment per pro tocol.
--- NOTE | 2021-02-26 21:22 | P.PNPS_ITS ---
TMS Daily Progress Note Daily TMS Progress Note Date of Service: 02/26/21 Week #: 1 Treatment #(06-08): 3 PHQ-9 Pre-Treatment (06-05): 23 PHQ-9 Most Recent (06-05): 23 Reviewed: TMS Tech Note Reviewed Verification: I have reviewed the TMS Laundry Attendant Note and agree with the contents. The patient remains a candidate to continue TMS treatment per pr otocol. Assessment and Plan (1) Major depressive disorder, recurrent severe without psychotic features: Status: Acute (2) Generalized anxiety disorder: Status: Acute Patient has started on a Anafranil she is being treated by Christine Damian nurse practitioner psychiatrically . Tolerating treatment monitor for any increased agitation continue current treatment protocol
--- NOTE | 2021-03-03 22:37 | P.PNPS_ITS ---
TMS Daily Progress Note Daily TMS Progress Note Date of Service: 03/03/21 Week #: 2 Treatment #(06-08): 6 PHQ-9 Pre-Treatment (06-05): 23 PHQ-9 Most Recent (06-05): 23 Reviewed: TMS Tech Note Reviewed Verification: I have reviewed the TMS Order To Delivery Supervisor Note and agree with the contents. The patient remains a candidate to continue TMS treatment per pr otocol. Assessment and Plan (1) Major depressive disorder, recurrent severe without psychotic features: Status: Acute (2) Generalized anxiety disorder: Status: Acute severe depression continue tms
--- NOTE | 2021-03-04 22:33 | P.PNPS_ITS ---
TMS Daily Progress Note Daily TMS Progress Note Date of Service: 02/27/21 Week #: 1 Treatment #(06-08): 4 PHQ-9 Pre-Treatment (06-05): 23 PHQ-9 Most Recent (06-05): 23 Reviewed: TMS Tech Note Reviewed Verification: I have reviewed the TMS Hadoop Admin Note and agree with the contents. The patient remains a candidate to continue TMS treatment per pr otocol. Assessment and Plan (1) Major depressive disorder, recurrent severe without psychotic features: Status: Acute (2) Generalized anxiety disorder: Status: Acute severe depression continue tms
--- NOTE | 2021-03-04 22:41 | P.PNPS_ITS ---
TMS Daily Progress Note Daily TMS Progress Note Date of Service: 03/04/21 Week #: 2 Treatment #(06-08): 7 PHQ-9 Pre-Treatment (06-05): 23 PHQ-9 Most Recent (06-05): 23 Reviewed: TMS Tech Note Reviewed Verification: I have reviewed the TMS Certified Forklift Operator Note and agree with the contents. The patient remains a candidate to continue TMS treatment per pr otocol. Assessment and Plan (1) Major depressive disorder, recurrent severe without psychotic features: Status: Acute (2) Generalized anxiety disorder: Status: Acute severe depression continue tms r/l tx
--- NOTE | 2021-03-05 21:16 | P.PNPS_ITS ---
TMS Daily Progress Note Daily TMS Progress Note Date of Service: 03/05/21 Week #: 2 Treatment #(06-08): 8 PHQ-9 Pre-Treatment (06-05): 23 PHQ-9 Most Recent (06-05): 23 Reviewed: TMS Tech Note Reviewed Verification: I have reviewed the TMS Student Liaison Officer Note and agree with the contents. The patient remains a candidate to continue TMS treatment per pr otocol. Assessment and Plan (1) Major depressive disorder, recurrent severe without psychotic features: Status: Acute (2) Generalized anxiety disorder: Status: Acute severe depression continue tms r/l tx
--- NOTE | 2021-03-06 21:17 | P.PNPS_ITS ---
TMS Daily Progress Note Daily TMS Progress Note Date of Service: 03/06/21 Week #: 2 Treatment #(06-08): 9 PHQ-9 Pre-Treatment (06-05): 23 PHQ-9 Most Recent (06-05): 23 Reviewed: TMS Tech Note Reviewed Verification: I have reviewed the TMS Materials Handling Coordinator Note and agree with the contents. The patient remains a candidate to continue TMS treatment per pr otocol. Assessment and Plan (1) Major depressive disorder, recurrent severe without psychotic features: Status: Acute (2) Generalized anxiety disorder: Status: Acute severe depression continue tms r/l tx
--- NOTE | 2021-03-07 18:51 | HO.TMSDAILY2 ---
TMS Daily Progress Note Daily TMS Progress Note Date of Service: 03/07/21 Week #: 2 Treatment #(06-08): 10 PHQ-9 Pre-Treatment (06-05): 23 PHQ-9 Most Recent (06-05): 23 Reviewed: TMS Tech Note Reviewed Verification: I have reviewed the TMS Photographic Machine Operator Note and agree with the contents. The patient remains a candidate to continue TMS treatment per protocol. Assessment and Plan (1) Major depressive disorder, recurrent severe without psychotic features: Status: Acute (2) Generalized anxiety disorder: Status: Acute cont tx plan no adverse effects on anafranil
--- NOTE | 2021-03-10 21:17 | HO.TMSDAILY2 ---
TMS Daily Progress Note Daily TMS Progress Note Date of Service: 03/10/21 Week #: 3 Treatment #(06-08): 11 PHQ-9 Pre-Treatment (06-05): 23 PHQ-9 Most Recent (06-05): 23 Reviewed: TMS Tech Note Reviewed Verification: I have reviewed the TMS Professor Of Sport Management Note and agree with the contents. The patient remains a candidate to continue TMS treatment per protocol. Assessment and Plan (1) Major depressive disorder, recurrent severe without psychotic features: Status: Acute (2) Generalized anxiety disorder: Status: Acute cont tx plan no adverse effects on anafranil
--- NOTE | 2021-03-11 22:00 | P.PNPS_ITS ---
TMS Daily Progress Note Daily TMS Progress Note Date of Service: 03/11/21 Week #: 3 Treatment #(06-08): 12 PHQ-9 Pre-Treatment (06-05): 23 PHQ-9 Most Recent (06-05): 23 Reviewed: TMS Tech Note Reviewed Verification: I have reviewed the TMS Assistant Golf Professional Note and agree with the contents. The patient remains a candidate to continue TMS treatment per caridad swanson.no change to this point coordinate with rasta rodriguez np ect remains an option as does esketamine
--- NOTE | 2021-03-12 21:49 | HO.TMSDAILY2 ---
TMS Daily Progress Note Daily TMS Progress Note Date of Service: 03/12/21 Week #: 3 Treatment #(06-08): 13 PHQ-9 Pre-Treatment (06-05): 23 PHQ-9 Most Recent (06-05): 23 Reviewed: TMS Tech Note Reviewed Verification: I have reviewed the TMS Bead Forming Machine Operator Note and agree with the contents. The patient remains a candidate to continue TMS treatment per protocol. Assessment and Plan (1) Major depressive disorder, recurrent severe without psychotic features: Status: Acute (2) Generalized anxiety disorder: Status: Acute cont tx plan will consider remapping
--- NOTE | 2021-03-13 22:18 | HO.TMSDAILY2 ---
TMS Daily Progress Note Daily TMS Progress Note Date of Service: 03/13/21 Week #: 3 Treatment #(06-08): 14 PHQ-9 Pre-Treatment (06-05): 23 PHQ-9 Most Recent (06-05): 23 Reviewed: TMS Tech Note Reviewed Verification: I have reviewed the TMS Senior Information Security Analyst Note and agree with the contents. The patient remains a candidate to continue TMS treatment per protocol. Assessment and Plan (1) Major depressive disorder, recurrent severe without psychotic features: Status: Acute (2) Generalized anxiety disorder: Status: Acute cont tx plan will consider remapping DISCUSSED WITH PT
--- NOTE | 2021-03-14 21:09 | HO.TMSDAILY2 ---
TMS Daily Progress Note Daily TMS Progress Note Date of Service: 03/14/21 Week #: 3 Treatment #(06-08): 15 PHQ-9 Pre-Treatment (06-05): 23 PHQ-9 Most Recent (06-05): 23 Reviewed: TMS Tech Note Reviewed Verification: I have reviewed the TMS Dry Wall Plasterer Note and agree with the contents. The patient remains a candidate to continue TMS treatment per protocol.
--- NOTE | 2021-03-17 20:29 | P.PNPS_ITS ---
TMS Daily Progress Note Daily TMS Progress Note Date of Service: 03/17/21 Week #: 4 Treatment #(06-08): 16 PHQ-9 Pre-Treatment (06-05): 23 PHQ-9 Most Recent (06-05): 23 Reviewed: TMS Tech Note Reviewed Verification: I have reviewed the TMS Advanced Practice Professional Note and agree with the contents. The patient remains a candidate to continue TMS treatment per p kiki. Assessment and Plan (1) Major depressive disorder, recurrent severe without psychotic features: Status: Acute (2) Generalized anxiety disorder: Status: Acute pt with severe anxiety may be related to med changes will discuss with GRINDING ROOM SUPERVISOR
--- NOTE | 2021-03-18 20:35 | P.PNPS_ITS ---
TMS Daily Progress Note Daily TMS Progress Note Date of Service: 03/18/21 Week #: 3 Treatment #(06-08): 17 PHQ-9 Pre-Treatment (06-05): 23 PHQ-9 Most Recent (06-05): 23 Reviewed: TMS Tech Note Reviewed Verification: I have reviewed the TMS Inshore Undersea Warfare Officer Note and agree with the contents. The patient remains a candidate to continue TMS treatment per p kiki. Assessment and Plan (1) Major depressive disorder, recurrent severe without psychotic features: Status: Acute (2) Generalized anxiety disorder: Status: Acute Discussed remapping would recommend no medication changes further at this time if possible [place] is not to confound result of TMS and will bring down MT
--- NOTE | 2021-03-19 21:58 | HO.TMSDAILY2 ---
TMS Daily Progress Note Daily TMS Progress Note Date of Service: 03/19/21 Week #: 4 Treatment #(06-08): 18 PHQ-9 Pre-Treatment (06-05): 23 PHQ-9 Most Recent (06-05): 23 Reviewed: TMS Tech Note Reviewed Verification: I have reviewed the TMS Nursing Home Assistant Administrator Note and agree with the contents. The patient remains a candidate to continue TMS treatment per protocol. Assessment and Plan (1) Major depressive disorder, recurrent severe without psychotic features: Status: Acute (2) Generalized anxiety disorder: Status: Acute Discussed remapping would recommend no medication changes further at this time if possible so not to confound result of TMS pt feels calmer after TMS
--- NOTE | 2021-03-20 23:13 | P.CNPS_ITS ---
History of Present Illness Chief Complaint: depression HPI Past Psychiatric History: Out Pt: Christine Stanley APRN. Therapist is Angelica Carreon Trials: Paxil, Prozac, Cymbalta, Lexapro, Celexa, Trintellix, Wellbutrin, Sertraline, Buspar, Amoxapine, Seroquel, Olanzapine, Mirtazapine, Gabapentin, Trileptal, Topamax, Trazodone. Hx of work with [facility] [place], Dr. Donald, and [facility]. Reports Mar 2019 Trintellix had mild efficacy. Wellbutrin was added when COVID- 19 began, then changed to Citalopram. In Dec 2019 Propranolol was added and in Feb 2020 Effexor was trialed (sleep is poor after this initiation). [facility] Medical History Hyperlipidemia Hypothyroidism Tinnitus Surgical History H/O shoulder surgery History of endometrial ablation Hx of foot surgery Hx of tonsillectomy Family History: anxiety-mother uses Sertraline, son uses Prozac effectively Anxiety runs on both sides of pt's family Social History: Supportive and children. Works at [employer] Trauma History: none although past 3 years of severe symptomatology and not responding has been quite traumatic Medications Allergies Allergies Allergy/AdvReac Type Severity Reaction Status Date / Time hydrocortisone Allergy Hives Verified 04/23/20 12:36 Penicillins Allergy Rash Verified 04/23/20 12:36 erythromycin base AdvReac Gastrointestinal Verified 04/23/20 12:36 Upset Assessment & Plan I spent minutes with the patient and/or on the patient floor today, greater than?50% of which was spent counseling/coordinating care.
--- NOTE | 2021-03-25 21:28 | HO.TMSDAILY2 ---
TMS Daily Progress Note Daily TMS Progress Note Date of Service: 03/25/21 Week #: 3 Treatment #(06-08): 19 PHQ-9 Pre-Treatment (06-05): 23 PHQ-9 Most Recent (06-05): 23 Reviewed: TMS Mapping/Re-mapping completed Verification: I have reviewed the TMS Tire Service Supervisor Note and agree with the contents. The patient remains a candidate to continue TMS treatment per protocol.Was able to recalculate position and mt had improved calculation
--- NOTE | 2021-03-26 23:01 | HO.TMSDAILY2 ---
TMS Daily Progress Note Daily TMS Progress Note Date of Service: 03/26/21 Week #: 5 Treatment #(06-08): 21 PHQ-9 Pre-Treatment (06-05): 23 PHQ-9 Most Recent (06-05): 23 Reviewed: TMS Tech Note Reviewed Verification: I have reviewed the TMS Wool Hat Finisher Note and agree with the contents. The patient remains a candidate to continue TMS treatment per protocol. Assessment and Plan (1) Major depressive disorder, recurrent severe without psychotic features: Status: Acute (2) Generalized anxiety disorder: Status: Acute remapping completed monitor response
--- NOTE | 2021-03-27 23:01 | HO.TMSDAILY2 ---
TMS Daily Progress Note Daily TMS Progress Note Date of Service: 03/27/21 Week #: 5 Treatment #(06-08): 22 PHQ-9 Pre-Treatment (06-05): 23 PHQ-9 Most Recent (06-05): 23 Reviewed: TMS Tech Note Reviewed Verification: I have reviewed the TMS Chicken Catcher Note and agree with the contents. The patient remains a candidate to continue TMS treatment per protocol.
--- NOTE | 2021-03-28 16:28 | HO.TMSDAILY2 ---
TMS Daily Progress Note Daily TMS Progress Note Date of Service: 03/29/21 Week #: 5 Treatment #(06-08): 22 PHQ-9 Pre-Treatment (06-05): 23 PHQ-9 Most Recent (06-05): 23 Reviewed: TMS Tech Note Reviewed Verification: I have reviewed the TMS Accounts Payable Supervisor Note and agree with the contents. The patient remains a candidate to continue TMS treatment per protocol.
--- NOTE | 2021-03-31 23:35 | P.PNPS_ITS ---
TMS Daily Progress Note Daily TMS Progress Note Date of Service: 03/31/21 Week #: 5 Treatment #(06-08): 24 PHQ-9 Pre-Treatment (06-05): 23 PHQ-9 Most Recent (06-05): 23 Reviewed: TMS Tech Note Reviewed Verification: I have reviewed the TMS Overhead Crane Truck Loader Note and agree with the contents. The patient remains a candidate to continue TMS treatment per p kiki.
--- NOTE | 2021-04-01 22:10 | P.PNPS_ITS ---
TMS Daily Progress Note Daily TMS Progress Note Date of Service: 04/01/21 Week #: 5 Treatment #(06-08): 25 PHQ-9 Pre-Treatment (06-05): 23 PHQ-9 Most Recent (06-05): 23 Reviewed: TMS Tech Note Reviewed Verification: I have reviewed the TMS Rattle Leak And Squeak Repairer Note and agree with the contents. The patient remains a candidate to continue TMS treatment per p kiki.
--- NOTE | 2021-04-02 16:27 | P.PNPS_ITS ---
TMS Daily Progress Note Daily TMS Progress Note Date of Service: 04/07/21 Week #: 6 Treatment #(06-08): 26 PHQ-9 Pre-Treatment (06-05): 23 PHQ-9 Most Recent (06-05): 23 Reviewed: TMS Tech Note Reviewed Verification: I have reviewed the TMS Emerging Solutions Executive Note and agree with the contents. The patient remains a candidate to continue TMS treatment per p kiki.
--- NOTE | 2021-04-07 23:09 | P.PNPS_ITS ---
TMS Daily Progress Note Daily TMS Progress Note Date of Service: 04/07/21 Week #: 6 Treatment #(06-08): 27 PHQ-9 Pre-Treatment (06-05): 23 PHQ-9 Most Recent (06-05): 23 Reviewed: TMS Tech Note Reviewed Verification: I have reviewed the TMS Aircraft Maintenance Supervisor Note and agree with the contents. The patient remains a candidate to continue TMS treatment per p kiki. Assessment and Plan (1) Major depressive disorder, recurrent severe without psychotic features: Status: Acute (2) Generalized anxiety disorder: Status: Acute no clear improvement lexapro was recently added
--- NOTE | 2021-04-08 23:21 | HO.TMSDAILY2 ---
TMS Daily Progress Note Daily TMS Progress Note Date of Service: 04/08/21 Week #: 6 Treatment #(06-08): 27 PHQ-9 Pre-Treatment (06-05): 23 PHQ-9 Most Recent (06-05): 23 Reviewed: TMS Tech Note Reviewed Verification: I have reviewed the TMS Cabinetmaker Supervisor Note and agree with the contents. The patient remains a candidate to continue TMS treatment per protocol. Assessment and Plan (1) Major depressive disorder, recurrent severe without psychotic features: Status: Acute (2) Generalized anxiety disorder: Status: Acute no clear improvement lexapro was recently added SINCE NO CLEAR IMPROVEMENT TO THIS POINT DISCUSSED JUST TRYING RIGHT-SIDED TREATMENT LEFT-SIDED TREATMENT MAY BE PERHAPS CONTRIBUTING TO ANXIETY OR NOT RESPONDING TO LEFT-SIDED TREATMENT LITERATURE REVIEW SUGGEST RIGHT-SIDED TREATMENT CAN BE EQUALLY EFFECTIVE LESS TENDENCY TOWARD ANXIETY PATIENT UNDERSTANDS THIS IS NOT HER NORMAL PROTOCOL
--- NOTE | 2021-04-09 22:11 | HO.TMSDAILY2 ---
TMS Daily Progress Note Daily TMS Progress Note Date of Service: 04/09/21 Week #: 6 Treatment #(06-08): 29 PHQ-9 Pre-Treatment (06-05): 23 PHQ-9 Most Recent (06-05): 23 Reviewed: TMS Tech Note Reviewed Verification: I have reviewed the TMS Airline Security Representative Note and agree with the contents. The patient remains a candidate to continue TMS treatment per protocol. Assessment and Plan (1) Major depressive disorder, recurrent severe without psychotic features: Status: Acute (2) Generalized anxiety disorder: Status: Acute no clear improvement lexapro was recently added SINCE NO CLEAR IMPROVEMENT TO THIS POINT DISCUSSED JUST TRYING RIGHT-SIDED TREATMENT LEFT-SIDED TREATMENT MAY BE PERHAPS CONTRIBUTING TO ANXIETY OR NOT RESPONDING TO LEFT-SIDED TREATMENT LITERATURE REVIEW SUGGEST RIGHT-SIDED TREATMENT CAN BE EQUALLY EFFECTIVE LESS TENDENCY TOWARD ANXIETY PATIENT UNDERSTANDS THIS IS NOT HER NORMAL PROTOCOL
== END 2021-04-14 15:23 | disposition admitted as inpatient to this hospital (09) ==
LOC: HO.PTMS 13:00
PROVIDERS: Visit Provider Psychiatry & Neurology Psychiatry
DX: F33.2 Major depressive disorder, recurrent severe without psychotic features (principal); F41.1 Generalized anxiety disorder; Z79.899 Other long term (current) drug therapy
CPT/HCPCS: 90867; 90868; 90869

== ENCOUNTER 2021-04-11 13:34 | Emergency (ER) | payer OTHER, SELFPAY ==
--- NOTE | 2021-04-11 | ECG_ITS ---
Test Reason : MEDICAL CLEARANCE Blood Pressure : / mmHG Vent. Rate : 077 BPM Atrial Rate : 077 BPM P-R Int : 136 ms QRS Dur : 076 ms QT Int : 394 ms P-R-T Axes : 044 025 040 degrees QTc Int : 445 ms Artifact in tracing Normal sinus rhythm Normal ECG When compared with ECG of 08-MAY-2020 09:02, No significant change was found Referred By: Generic ED Physician Electronically Signed By:ISIAH NICOLE
[2021-04-11 13:46] VITALS: BP 154/84; PULSE 82; RESP 16; TEMP 36.6; O2SAT 95; BMI 23.5
--- NOTE | 2021-04-11 13:58 | ED_ITS ---
HPI - Anxiety General Chief Complaint: Anxiety Stated Complaint: CRISIS Time Seen by Provider: 04/11/21 13:57 Source: patient Mode of arrival: ambulatory Limitations: no limitations History of Present Illness HPI narrative: This is a 66-year-old female past medical history significant for anxiety, depression presenting to the emergency department with increasing anxiety for a few days. Patient tells me she had TMS schduled this moring here with Dr. Lee and she reported to him that her anxiety has been progr essively worsening, and debilitating. She tells me that she is just anxious about a lot of different things, but she is unable to pinpoint 1 specific event. She is here for medical clearance and she will be a direct admission to . She tells me that she has been having hard stool and is wondering if she can have stool softeners. She has no other medical complaints at this time. She denies chest pain, shortness of breath, fevers, chills, nausea, vomiting, abdominal pain. Denies visual, auditory and tactile hallucinations. Denies current SI and HI. MD complaint: anxiety Onset (ago): day(s) (2.) Severity: severe Quality: constant Place: home History of similar episodes: Yes Provoking factors: none known Relieving factors: nothing Exacerbating factors: nothing Associated symptoms: other (hard stool) Related Data Home Medications Medication Instructions Recorded Confirmed atorvastatin 10 mg tablet 10 mg PO BEDTIME 04/23/20 04/11/21 levothyroxine 88 mcg tablet 88 mcg PO SUMOTUWETHFR@0600 04/23/20 04/11/21 levothyroxine 88 mcg tablet 176 mcg PO SA@0600 04/23/20 04/11/21 calcium carbonate 500 mg calcium 500 mg PO DAILY 04/11/21 04/11/21 (1,250 mg) tablet (Calcium 500) cholecalciferol (vitamin D3) 25 25 mcg PO DAILY 04/11/21 04/11/21 mcg (1,000 unit) tablet (Vitamin D3) clonazepam 0.5 mg tablet 0.25 mg PO BID 04/11/21 04/11/21 clonazepam 0.5 mg tablet 0.5 tab PO DAILY@1200 04/11/21 04/11/21 cyclosporine 0.05 % eye drops in a 1 drp OPHTHALMIC (EYE) DAILY 04/11/21 04/11/21 dropperette (Restasis) docusate sodium 100 mg capsule 100 mg PO DAILY PRN 04/11/21 04/11/21 (Colace) escitalopram oxalate 10 mg tablet 10 mg PO BEDTIME 04/11/21 04/11/21 multivitamin 1 tab PO DAILY 04/11/21 04/11/21 olanzapine 2.5 mg tablet 2.5 mg PO BID 04/11/21 04/11/21 propranolol 10 mg tablet 20 mg PO BID 04/11/21 04/11/21 Allergies Allergy/AdvReac Type Severity Reaction Status Date / Time hydrocortisone Allergy Hives Verified 04/23/20 12:36 Penicillins Allergy Rash Verified 04/23/20 12:36 erythromycin base AdvReac Gastrointestinal Verified 04/23/20 12:36 Upset Review of Systems Review of Systems: Constitutional : No Weight loss, No Fever, No Chills, No Fatigue, No Malaise ENT/Mouth : No sore throat, No Rhinorrhea Eyes: No Eye Pain, No Swelling, No Redness Cardiovascular : No Chest Pain, No SOB, No Dyspnea on Exertion, No Orthopnea, No Edema, No Palpitations Respiratory : No Cough, No Sputum, No Wheezing Gastrointestinal : No Nausea, No Vomiting, No Diarrhea, No Constipation, No abdominal Pain, No Hematochezia, No Melena Genitourinary : No Dysuria, No Urinary Frequency, No Hematuria, Musculoskeletal : No joint pain, No Myalgias, No Joint Swelling Skin : No Skin Lesions, No rash Neuro : No Weakness, No Numbness, No Dizziness, No Headache Psych : + Anxiety/Panic, + Depression, No SI/HI All other systems reviewed and are negative [facility] Past Medical History Attestation statement: The following information was validated with the patient. Source: old records reviewed and nursing notes reviewed Medical History Hyperlipidemia Hypothyroidism Tinnitus Surgical History H/O shoulder surgery History of endometrial ablation Hx of foot surgery Hx of tonsillectomy Social History Social History Household Members: Spouse Housing: House Do you presently have visiting nurse or other home services: No Alcohol intake: never Smoked in Last 30 Days: No Second Hand Smoke Exposure: No Use of substances other than those prescribed or required for medical reasons: No Advance Directives: No Advance Directives Information Provided: Yes service: No Sexual orientation: Straight/Heterosexual Physical Exam Vital Signs: Vital Signs: Last Vital Signs Temp 97.9 F 04/11/21 13:46 Pulse 82 04/11/21 13:46 Resp 16 04/11/21 13:46 BP 154/84 H 04/11/21 13:46 Pulse Ox 95 04/11/21 13:46 BMI result Body Mass Index 23.5 VSS slightly hypertensive likely secondary to anxiety Appearance: Alert.? Oriented X3.? No acute distress.? Head: Normocephalic, atraumatic, no step-offs or deformities Eyes: Pupils equal, round and reactive to light.? ENT: Pharynx normal.? Neck: Normal inspection.? Neck supple.? CVS: Normal heart rate and rhythm.? Pulses normal.? Respiratory: No respiratory distress.? Breath sounds normal.? Abdomen: Soft and nontender.? Skin: Skin warm and dry.? Normal skin color.? Normal skin turgor.? Extremities: No lower extremity edema.? No calf ttp. 5/5 strength to bilateral upper and lower extremities Back: No midline tenderness, no C-spine tenderness, full range of motion, no CVA tenderness bilaterally Neuro: Oriented X 3.? No motor deficit.? No sensory deficit. CN 2-12 intact Course Reevaluation(s) Reevaluation #1: Labs show no leukocytosis, no anemia, no acute electrolyte abnormalities. Urine not concerning for UTI, likely contaminants. Urine tox screen negative. COVID negative. At this time patient is medically cleared. Patient will be placed in physician observation to lumbar time to be placed up stairs on M5. At time of vision observation was started vital signs are stable. Lungs are clear, regular rate and rhythm, abdomen soft nontender nondistended. No focal neuro deficits Time: 15:43 MDM - Anxiety MDM Narrative Medical decision making narrative: 1400 66-year-old female past medical history significant for major depression, anxiety presenting to the emergency department with complaints of increasing anxiety. She had TMS schduled this moring here with Dr. Lee and she reported to him that her anxiety has been progressively worsening, and debilitating. Patinet needs to be medically cleared and will be a direct admit to On physical examination patient appears anxious, no acute distress. S1-S2 appreciated free of murmurs. Lungs are clear. Abdomen soft nontender nondistended. No focal neuro deficits. Cranial nerves 2-12 intact. Plan at this time is to obtain basic labs, EKG, COVID, U tox. Patient will be given senna and Colace for constipation. Medical Records Attestation: I reviewed the patient's medical records. Lab Data Attestation: I reviewed the patient's lab results. Result diagrams: 04/11/21 14:36 04/11/21 14:36 Labs: Lab Results 04/11/21 04/11/21 04/11/21 Range/Units 14:36 14:36 14:36 WBC 9.4 (4.8-10.8) X10*3/uL RBC 4.67 (4.20-5.50) X10*6/uL Hgb 15.0 (12.0-16.0) g/dl Hct 44.4 (37.0-47.0) % MCV 95.1 (80.0-98.0) fL MCH 32.1 (27.0-33.0) pg MCHC 33.8 (31.0-35.0) g/dl RDW 12.0 (11.0-16.0) % Plt Count 225 (160-400) X10*3/uL MPV 11.3 (9.4-12.3) fL Immature Gran % (Auto) 0.4 (0.0-0.4) % Neut % (Auto) 67.0 (45-73) % Lymph % (Auto) 24.8 (20-40) % [place] % (Auto) 6.5 (2-11) % Eos % (Auto) 1.0 (0-4) % Baso % (Auto) 0.3 (0-2) % Lymph # (Auto) 2.3 (1.2-4.9) X10*3/uL [place] # (Auto) 0.6 (0.1-1.2) X10*3/uL Eos # (Auto) 0.1 (0.0-0.4) X10*3/uL Baso # (Auto) 0.0 (0.0-0.2) X10*3/uL Abs Immat Gran (auto) 0.04 H (0.00-0.03) X10*3/uL Absolute Neuts (auto) 6.3 (2.0-8.3) x10*3/uL Absolute Nucleated RBC 0.000 (0.0-0.012) X10*3/uL Nucleated RBC % (auto) 0.0 (0.0-0.2) /100WBC Sodium 141 (135-145) mmol/L Potassium 4.3 (3.3-5.1) mmol/L Chloride 106 (96-108) mmol/L Carbon Dioxide 27 (22-29) mmol/L Anion Gap 12 (12-20) BUN 17 H (9-16) mg/dL Creatinine 0.75 (0.5-1.4) mg/dL Estim Creat Clear Calc 63.7 Estimated GFR > 60 Random Glucose 138 H (60-115) mg/dL Calcium 10.1 D (8.4-10.2) mg/dL Urine Opiates Screen (Not Detect) Urine Fentanyl Screen (Not Detect) Ur Barbiturates Screen (Not Detect) Ur Phencyclidine Scrn (Not Detect) Ur Amphetamines Screen (Not Detect) U Benzodiazepines Scrn (Not Detect) Urine Cocaine Screen (Not Detect) U Marijuana (THC) Screen (Not Detect) Ethyl Alcohol mg/dL COVID-19 ([facility]) Negative (Negative) COVID-19 Clin Com See Note 04/11/21 04/11/21 Range/Units 14:36 14:36 WBC (4.8-10.8) X10*3/uL RBC (4.20-5.50) X10*6/uL Hgb (12.0-16.0) g/dl Hct (37.0-47.0) % MCV (80.0-98.0) fL MCH (27.0-33.0) pg MCHC (31.0-35.0) g/dl RDW (11.0-16.0) % Plt Count (160-400) X10*3/uL MPV (9.4-12.3) fL Immature Gran % (Auto) (0.0-0.4) % Neut % (Auto) (45-73) % Lymph % (Auto) (20-40) % [place] % (Auto) (2-11) % Eos % (Auto) (0-4) % Baso % (Auto) (0-2) % Lymph # (Auto) (1.2-4.9) X10*3/uL [place] # (Auto) (0.1-1.2) X10*3/uL Eos # (Auto) (0.0-0.4) X10*3/uL Baso # (Auto) (0.0-0.2) X10*3/uL Abs Immat Gran (auto) (0.00-0.03) X10*3/uL Absolute Neuts (auto) (2.0-8.3) x10*3/uL Absolute Nucleated RBC (0.0-0.012) X10*3/uL Nucleated RBC % (auto) (0.0-0.2) /100WBC Sodium (135-145) mmol/L Potassium (3.3-5.1) mmol/L Chloride (96-108) mmol/L Carbon Dioxide (22-29) mmol/L Anion Gap (12-20) BUN (9-16) mg/dL Creatinine (0.5-1.4) mg/dL Estim Creat Clear Calc Estimated GFR Random Glucose (60-115) mg/dL Calcium (8.4-10.2) mg/dL Urine Opiates Screen Not Detected (Not Detect) Urine Fentanyl Screen Not Detected (Not Detect) Ur Barbiturates Screen Not Detected (Not Detect) Ur Phencyclidine Scrn Not Detected (Not Detect) Ur Amphetamines Screen Not Detected (Not Detect) U Benzodiazepines Scrn Not Detected (Not Detect) Urine Cocaine Screen Not Detected (Not Detect) U Marijuana (THC) Screen Not Detected (Not Detect) Ethyl Alcohol < 10 mg/dL COVID-19 ([facility]) (Negative) COVID-19 Clin Com ECG Data Attestation: I personally reviewed and interpreted this ECG as follows: ECG interpretation date: 04/11/21 ECG interpretation time: 14:18 Prior ECG tracings: available for review Interpretation: Ventricular rate of 77, WI normal, QRS normal, QT/QTC normal. No ST elevations or inversions. EKG shows normal sinus rhythm. No acute ischemia. No significant changes when compared to previous Critical Care Time Critical Care Time Critical Care Time: No Discharge Plan Discharge Clinical Impression: Acute anxiety Patient Disposition: Home, Self-Care Prescriptions: No Action levothyroxine 88 mcg Tablet 88 mcg PO SUMOTUWETHFR@0600 RF: 0 atorvastatin 10 mg Tablet 10 mg PO BEDTIME RF: 0 levothyroxine 88 mcg Tablet 176 mcg PO SA@0600 RF: 0 clonazepam 0.5 mg tablet 0.5 tab PO DAILY@1200 RF: 0 escitalopram oxalate 10 mg tablet 10 mg PO BEDTIME RF: 0 Restasis 0.05 % dropperette 1 drp ophthalmic (eye) DAILY RF: 0 multivitamin Tablet 1 tab PO DAILY RF: 0 clonazepam 0.5 mg tablet 0.25 mg PO BID RF: 0 calcium carbonate [Calcium 500] 500 mg calcium (1,250 mg) Tablet 500 mg PO DAILY RF: 0 docusate sodium [Colace] 100 mg Capsule 100 mg PO DAILY PRN (Reason: Constipation) RF: 0 cholecalciferol (vitamin D3) [Vitamin D3] 25 mcg (1,000 unit) Tablet 25 mcg PO DAILY RF: 0 olanzapine 2.5 mg tablet 2.5 mg PO BID RF: 0 propranolol 10 mg tablet 20 mg PO BID RF: 0
[2021-04-11] MEDS: Docusate Sodium 100 MG CAPSULE PO (14:30)
[2021-04-11] MEDS: Sennosides 8.6 MG TABLET PO (14:30)
[2021-04-11 14:45] LABS: MANUAL DIFF FLAG NO
[2021-04-11 14:47] LABS: Basophils Percent Auto 0.3 % (0-2); Eosinophils Absolute Auto 0.1 X10*3/uL (0.0-0.4); Hematocrit 44.4 % (37.0-47.0); Imm Gran Abs Auto 0.04 X10*3/uL (0.00-0.03); Imm Gran Pct Auto 0.4 % (0.0-0.4); Lymphocytes Absolute Auto 2.3 X10*3/uL (1.2-4.9); Lymphocytes Percent Auto 24.8 % (20-40); Mean Corpuscular HGB Conc 33.8 g/dl (31.0-35.0); Mean Corpuscular Hemoglobin 32.1 pg (27.0-33.0); Mean Corpuscular Volume 95.1 fL (80.0-98.0); Mean Platelet Volume 11.3 fL (9.4-12.3); Monocytes Absolute Auto 0.6 X10*3/uL (0.1-1.2); Monocytes Percent Auto 6.5 % (2-11); Neutrophils Absolute Auto 6.3 x10*3/uL (2.0-8.3); Platelet Count 225 X10*3/uL (160-400); Red Blood Count 4.67 X10*6/uL (4.20-5.50); White Blood Count 9.4 X10*3/uL (4.8-10.8)
--- NOTE | 2021-04-11 14:47 | PHA.MEDREC ---
Pharmacy Consult ? Medication Reconciliation Pharmacy has completed the medication reconciliation. Patient reports taking atorvastatin but there is no recent fill history for it. Reports she is no longer taking clomipramine, fluvoxamine or venlafaxine. Reports taking Klonopin 0.25 in AM, 0.5 mg in afternoon and 0.25 mg at bedtime. She reports that her doctor just increase her lexapro from 5 mg to 10 mg. Confirmed levothyoxine 88 mcg 6x/wk and 2 tablets on wednesday. Ade Delacruz, ChayoD
[2021-04-11 15:02] LABS: COVID-19 Test Negative (Negative); IDNOW Serial# 9DD0AD1C
[2021-04-11 15:06] LABS: Ethanol < 10 mg/dL
[2021-04-11 15:08] LABS: Anion Gap 12 (12-20); Blood Urea Nitrogen 17 mg/dL (9-16); Calcium 10.1 mg/dL (8.4-10.2); Carbon Dioxide 27 mmol/L (22-29); Chloride 106 mmol/L (96-108); Creatinine Clr Calc Pharmacy 63.7; Estimated Glomerular Filt Rate > 60; Glucose Random 138 mg/dL (60-115); Potassium 4.3 mmol/L (3.3-5.1); Sodium 141 mmol/L (135-145)
[2021-04-11 15:17] LABS: Amphetamine Screen Urine Not Detected (Not Detect); Barbiturates, Urine Not Detected (Not Detect); Benzodiazepines Screen Urine Not Detected (Not Detect); Cannabinoid Screen Urine Not Detected (Not Detect); Cocaine Screen Urine Not Detected (Not Detect); Fentanyl, urine Not Detected (Not Detect); Opiate Screen Urine Not Detected (Not Detect); Phencyclidine Screen Urine Not Detected (Not Detect)
--- NOTE | 2021-04-11 15:18 | PC.NURSE ---
PT REQUESTING DC
--- NOTE | 2021-04-11 16:03 | PC.NURSE ---
PLAN FOR PT TO DC HOME. PT TO HOLD OFF ON KLONOPIN UNTIL SHE GETS HOME
--- NOTE | 2021-04-11 16:12 | MHC.CARE ---
CARE Team met with pt because pt was asking to be discharged. Pt explained that she does not feel comfortable going to M5 as last time she was on M5 it was crazy and I can't do that again, I can't. Pt denies SI/HI. Pt does not appear to be responding to internal stimuli. CARE Team spoke with pt's outpt psychiatric provider and Dr. Lee about pt's request to leave. It is likely that S1 will have an open bed on Wednesday so pt is being discharged home with daily check in calls by CARE Team until S1 bed is available for pt. CARE Team encouraged pt to come back to the ED or to call Crisis if her symptoms worsened or she was struggling at home. This plan was discussed and agreed upon by CARE drug coordinator, MICHAEL Vickers, ED provider, IGNACIO Daugherty, and Dr. Lee.
== END 2021-04-11 16:08 | disposition home or self-care (01) ==
PROVIDERS: Emergency Provider Emergency Medicine; PCP Internal Medicine
DX: F41.9 Anxiety disorder, unspecified (principal); F32.A Depression, unspecified; E03.9 Hypothyroidism, unspecified; E78.5 Hyperlipidemia, unspecified; Z79.899 Other long term (current) drug therapy; Z20.822 Contact with and (suspected) exposure to COVID-19
CPT/HCPCS: 36415; 80048; 80307; 82077; 85025; 87635; 93005; 99284

== ENCOUNTER 2021-04-14 13:33 | Inpatient (IN) | payer MEDICARE, OTHER, SELFPAY ==
[2021-04-14 14:10] VITALS: BP 125/73; PULSE 78; RESP 18; TEMP 35.9; O2SAT 98; BMI 23.5
--- NOTE | 2021-04-14 14:43 | PC.NURSE ---
PT stated that her anxiety has recently gotten much worse despite medication changes. Pt states her out patient provider encouraged her to check herself in and have her medications assessed. PT is calm and cooperative with change manager process.
--- NOTE | 2021-04-14 14:51 | ED_ITS ---
HPI - Psych General Chief Complaint: Psychiatric Symptoms Stated Complaint: crisis Time Seen by Provider: 04/14/21 14:45 Source: patient Limitations: no limitations History of Present Illness HPI Narrative: c/o severe anxiety seen in ED 2 days ago return because anxiety MD complaint: anxiety Onset (ago): week(s) Duration: constant History of same: Yes Relieving factors: none Exacerbating factors: none Associated psychiatric symptoms: none Related Data Home Medications Medication Instructions Recorded Confirmed atorvastatin 10 mg tablet 10 mg PO BEDTIME 04/23/20 04/11/21 levothyroxine 88 mcg tablet 88 mcg PO SUMOTUWETHFR@0600 04/23/20 04/11/21 levothyroxine 88 mcg tablet 176 mcg PO SA@0600 04/23/20 04/11/21 calcium carbonate 500 mg calcium 500 mg PO DAILY 04/11/21 04/11/21 (1,250 mg) tablet (Calcium 500) cholecalciferol (vitamin D3) 25 25 mcg PO DAILY 04/11/21 04/11/21 mcg (1,000 unit) tablet (Vitamin D3) clonazepam 0.5 mg tablet 0.25 mg PO BID 04/11/21 04/11/21 clonazepam 0.5 mg tablet 0.5 tab PO DAILY@1200 04/11/21 04/11/21 cyclosporine 0.05 % eye drops in a 1 drp OPHTHALMIC (EYE) DAILY 04/11/21 04/11/21 dropperette (Restasis) docusate sodium 100 mg capsule 100 mg PO DAILY PRN 04/11/21 04/11/21 (Colace) escitalopram oxalate 10 mg tablet 10 mg PO BEDTIME 04/11/21 04/11/21 multivitamin 1 tab PO DAILY 04/11/21 04/11/21 olanzapine 2.5 mg tablet 2.5 mg PO BID 04/11/21 04/11/21 propranolol 10 mg tablet 20 mg PO BID 04/11/21 04/11/21 Allergies Allergy/AdvReac Type Severity Reaction Status Date / Time hydrocortisone Allergy Hives Verified 04/14/21 14:10 Penicillins Allergy Rash Verified 04/14/21 14:10 erythromycin base AdvReac Gastrointestinal Verified 04/14/21 14:10 Upset Review of Systems Review of Systems: Yes all other systems are reviewed and are negative Constitutional: Constitutional: Reports as per HPI Eyes: Eyes: Reports no additional eye complaints Respiratory: Respiratory: Reports no additional respiratory complaints Gastrointestinal: Gastrointestinal: Reports no additional gastrointestinal complaints Psychiatric: Psychiatric: Reports anxiety COUNTS INCLUDE 234 BEDS AT THE [facility] Past Medical History Medical History Hyperlipidemia Hypothyroidism Tinnitus Surgical History H/O shoulder surgery History of endometrial ablation Hx of foot surgery Hx of tonsillectomy Social History Social History Household Members: Spouse Housing: House Do you presently have visiting nurse or other home services: No Alcohol intake: unknown Patient Tobacco Use Status: Never used Tobacco Smoked in Last 30 Days: No Second Hand Smoke Exposure: No Advance Directives: Yes Advance Directives Information Provided: Yes Advance Directives on File: No Healthcare Proxy: No Guardian: No service: No Sexual orientation: Straight/Heterosexual Physical Exam Vital Signs: Vital Signs: Last Vital Signs Temp 97.2 F 04/14/21 15:41 Pulse 74 04/14/21 15:41 Resp 18 04/14/21 14:10 BP 129/80 04/14/21 15:41 Pulse Ox 98 04/14/21 15:41 BMI result Body Mass Index 23.5 Const: General: cooperative and anxious Orientation/consciousness: patient oriented x3 Limitations: no limitations HENMT: Other: wnl Face and sinus: Yes normal facial exam Mouth: Normal oral and palatal mucosa present Teeth and gingiva: dentition normal Neck: Neck: Yes normal visual inspection Chest: Chest palpation & inspection: normal inspection of the chest Resp: Effort & Inspection: normal respiratory effort Auscultation: clear to auscultation bilaterally Cardio: Jugular venous distension: no JVD Rate: regular rate Rhythm: regular rhythm GI: Inspection: Yes normal to inspection Palpation (GI): Soft to palpation, nontender and no guarding Skin: General skin exam: no rashes or lesions noted, elasticity normal and turgor normal Lesions: no lesions Rashes: no rashes Neuro: General: patient oriented x3 MDM - Psych Lab Data Labs: Lab Results 04/14/21 04/14/21 04/14/21 Range/Units 14:57 14:58 14:58 Urine Color YELLOW Urine Appearance CLEAR Urine pH 6.0 (5.0-8.0) Ur Specific [place] 1.025 (1.005-1.025) Urine Protein NEG (NEG-TRACE) MG/DL Urine Glucose (UA) NEG (NEG) MG/DL Urine Ketones NEG (NEG) MG/DL Urine Blood NEG (NEG) Urine Nitrite NEG (NEG) Ur Leukocyte Esterase NEG (NEG) Urine Opiates Screen Not Detected (Not Detect) Urine Fentanyl Screen Not Detected (Not Detect) Ur Barbiturates Screen Not Detected (Not Detect) Ur Phencyclidine Scrn Not Detected (Not Detect) Ur Amphetamines Screen Not Detected (Not Detect) U Benzodiazepines Scrn Not Detected (Not Detect) Urine Cocaine Screen Not Detected (Not Detect) U Marijuana (THC) Screen Not Detected (Not Detect) COVID-19 (KEVON) Negative (Negative) COVID-19 Clin Com See Note Discharge Plan Discharge Clinical Impression: Anxiety Prescriptions: No Action levothyroxine 88 mcg Tablet 88 mcg PO SUMOTUWETHFR@0600 RF: 0 atorvastatin 10 mg Tablet 10 mg PO BEDTIME RF: 0 levothyroxine 88 mcg Tablet 176 mcg PO SA@0600 RF: 0 clonazepam 0.5 mg tablet 0.5 tab PO DAILY@1200 RF: 0 escitalopram oxalate 10 mg tablet 10 mg PO BEDTIME RF: 0 Restasis 0.05 % dropperette 1 drp ophthalmic (eye) DAILY RF: 0 multivitamin Tablet 1 tab PO DAILY RF: 0 clonazepam 0.5 mg tablet 0.25 mg PO BID RF: 0 calcium carbonate [Calcium 500] 500 mg calcium (1,250 mg) Tablet 500 mg PO DAILY RF: 0 docusate sodium [Colace] 100 mg Capsule 100 mg PO DAILY PRN (Reason: Constipation) RF: 0 cholecalciferol (vitamin D3) [Vitamin D3] 25 mcg (1,000 unit) Tablet 25 mcg PO DAILY RF: 0 olanzapine 2.5 mg tablet 2.5 mg PO BID RF: 0 propranolol 10 mg tablet 20 mg PO BID RF: 0
[2021-04-14 15:21] LABS: Amphetamine Screen Urine Not Detected (Not Detect); Barbiturates, Urine Not Detected (Not Detect); Benzodiazepines Screen Urine Not Detected (Not Detect); Cannabinoid Screen Urine Not Detected (Not Detect); Cocaine Screen Urine Not Detected (Not Detect); Fentanyl, urine Not Detected (Not Detect); Opiate Screen Urine Not Detected (Not Detect); Phencyclidine Screen Urine Not Detected (Not Detect)
[2021-04-14 15:27] LABS: COVID-19 Test Negative (Negative); IDNOW Serial# 9DD0AD1C
[2021-04-14 15:41] VITALS: BP 129/80; PULSE 74; TEMP 36.2; O2SAT 98
[2021-04-14 16:01] LABS: Appearance Urine CLEAR; Color Urine YELLOW; Glucose Urine UA NEG (NEG); Leukocyte Esterase Urine NEG (NEG); Nitrite Urine NEG (NEG); Specific Gravity - Urine 1.025 (1.005-1.025); Urine Blood NEG (NEG); Urine Ketones NEG (NEG); Urine Protein NEG (NEG-TRACE)
--- NOTE | 2021-04-14 18:12 | PHA.MEDREC ---
Pharmacy Consult ? Medication Reconciliation Pharmacy has completed the medication reconciliation. I spoke with patient on 04/11/2021, nothing was change on discharged. Ade Delacruz, PharmD
[2021-04-14] MEDS: clonazePAM 0.5 MG TABLET 0.25 MG PO (20:34)
[2021-04-14 20:35] VITALS: BP 135/75; PULSE 83
[2021-04-14] MEDS: Atorvastatin Calcium 10 MG TABLET PO (20:35)
[2021-04-14] MEDS: Escitalopram Oxalate 10 MG TABLET PO (20:35)
[2021-04-14] MEDS: OLANZapine 2.5 MG TABLET PO (20:35)
[2021-04-14] MEDS: Propranolol HCL 20 MG TABLET PO (20:35)
[2021-04-14] MEDS: traZODone HCL 50 MG TABLET PO (23:15)
--- NOTE | 2021-04-14 23:41 | PC.NURSE ---
patient has asked not to be woken up early for levothyroxine sodium because she has gotten little sleep over the past few days.
[2021-04-14 23:42] VITALS: BP 142/74; PULSE 72; RESP 18; TEMP 36.4; O2SAT 96
--- NOTE | 2021-04-14 23:54 | PC.NURSE ---
This patient is a 66 YO female admitted with a diagnosis of generalized anxiety and MDD. This patient signed a CV prior to admission. Puja denies HI/SI. States that she wanted to be admitted so that she could receive some adjustments to her medications, which have not help her anxiety of the past few weeks. This patient states that she will approached staff if she feels her anxiety is getting worse, or if she feels unsafe on the unit. Patient signed a release of information for her and psychiatrist. The patients appearance is neat, mood is appropriate for situation. Patient denies hearing voices.
[2021-04-15 07:59] VITALS: BP 142/75; PULSE 89; RESP 16; TEMP 36.3; O2SAT 94
[2021-04-15] MEDS: clonazePAM 0.5 MG TABLET 0.25 MG PO ×2 (08:00→12:57)
[2021-04-15] MEDS: OLANZapine 2.5 MG TABLET PO ×2 (08:01→20:41)
[2021-04-15 08:02] VITALS: BP 142/75; PULSE 89
[2021-04-15] MEDS: Propranolol HCL 20 MG TABLET PO ×2 (08:02→20:41)
[2021-04-15] MEDS: Levothyroxine Sodium 88 MCG TABLET PO (08:02)
[2021-04-15 08:40] VITALS: BP 141/80; PULSE 83; RESP 14; TEMP 36.7; O2SAT 94
--- NOTE | 2021-04-15 10:17 | HO.PSYADMNOT ---
HPI Date of Service: 04/15/21 Chief Complaint: Severe anxiety Sources of Information: patient interviewed, chart reviewed and crisis/core team assessment reviewed HPI Subjective Notes: Conditional Voluntary Narrative: Ms. Lopez is a 66 year-old woman with hx of MDD and SUNITA, multiple past failed medication trials and past inpatient admission who self presented to [facility] ED reporting increased anxious mood, rumination about whether she will ever get better, hopeless/helpless, poor sleep. In the ED, utox was negative. On the unit, Ms. Lopez presents as very anxious, ruminating about whether there will be a magic medication that will decrease her anxiety and depression. She reports she experienced a significant decline in ability to function almost 4 years ago. She reports she was outgoing, would travel places with her , enjoyed going out. She reports for the past 4 years due to anxious mood she does not leave the house, only to go to work, with plan to retire this coming 04/18. She reports she does not want to travel with as she used to due to anxious mood. She just recently finished TMS, 30 sessions with no benefit. Pt denies suicidal ideation or any plan or intent. However, she reports feeling extremely hopeless that she will ever feel any better. Past Psychiatric History: Out Pt: Christine Stanley APRN. Therapist is Angelica Carreon Trials: Paxil, Prozac, Cymbalta, Lexapro, Celexa, Trintellix, Wellbutrin, Sertraline, Buspar, Amoxapine, Seroquel, Olanzapine, Mirtazapine, Gabapentin, Trileptal, Topamax, Trazodone. Hx of work with Raquel [place], Dr. Donald, and [facility]. Reports Mar 2019 Trintellix had mild efficacy. Wellbutrin was added when COVID-19 began, then changed to Citalopram. In Dec 2019 Propranolol was added and in Feb 2020 Effexor was trialed (sleep is poor after this initiation). Medical Evaluation Reviewed: Yes [facility] Medical History Hyperlipidemia Hypothyroidism Tinnitus Surgical History H/O shoulder surgery History of endometrial ablation Hx of foot surgery Hx of tonsillectomy Family History: anxiety-mother uses Sertraline, son uses Prozac effectively Anxiety runs on both sides of pt's family Social History: Supportive and children. Works at [employer] Trauma History: none although past 3 years of severe symptomatology and not responding has been quite traumatic Diagnostics Vital Signs (24Hr): Vital Signs - 24 hr 04/14/21 20:35 04/14/21 23:42 04/15/21 07:59 Temperature 97.6 F 97.4 F Pulse Rate 83 72 89 Respiratory Rate 18 16 Blood Pressure 135/75 142/74 H 142/75 H Pulse Oximetry 96 94 04/15/21 08:02 Temperature Pulse Rate 89 Respiratory Rate Blood Pressure 142/75 H Pulse Oximetry BMI result Body Mass Index 23.5 Labs Labs: Laboratory Results - last 48 hr 04/14/21 04/14/21 04/14/21 14:57 14:58 14:58 Urine Color YELLOW Urine Appearance CLEAR Urine pH 6.0 Ur Specific [place] 1.025 Urine Protein NEG Urine Glucose (UA) NEG Urine Ketones NEG Urine Blood NEG Urine Nitrite NEG Ur Leukocyte Esterase NEG Urine Opiates Screen Not Detected Urine Fentanyl Screen Not Detected Ur Barbiturates Screen Not Detected Ur Phencyclidine Scrn Not Detected Ur Amphetamines Screen Not Detected U Benzodiazepines Scrn Not Detected Urine Cocaine Screen Not Detected U Marijuana (THC) Screen Not Detected COVID-19 (KEVON) Negative COVID-19 Clin Com See Note Meds/Allergies Meds Home Medications Acetaminophen (Acetaminophen 325 Mg Tablet) 650 mg PO Q6H PRN PRN Reason: Headache/Pain Mild Scale (1-3) Al Hydroxide/Mg Hydroxide (Magnesium Hydrox/Alum Hydrox 30 Ml Oral.Susp) 30 ml PO Q6H PRN PRN Reason: Heartburn/Nausea Atorvastatin Calcium (Atorvastatin Calcium 10 Mg Tablet) 10 mg PO BEDTIME [facility] Last Admin: 04/15/21 20:41 Dose: 10 mg Documented by: Calcium Carbonate (Calcium Carbonate 500 Mg Tablet) 500 mg PO DAILY@1200 [facility] Clonazepam (Clonazepam 0.5 Mg Tablet) 0.25 mg PO DAILY@1200 [facility] Last Admin: 04/15/21 12:57 Dose: 0.25 mg Documented by: Clonazepam (Clonazepam 0.5 Mg Tablet) 0.5 mg PO BID [facility] Last Admin: 04/15/21 22:25 Dose: 0.5 mg Documented by: Docusate Sodium (Docusate Sodium 100 Mg Capsule) 100 mg PO DAILY PRN PRN Reason: Constipation Last Admin: 04/15/21 22:29 Dose: 100 mg Documented by: Escitalopram Oxalate (Escitalopram Oxalate 10 Mg Tablet) 10 mg PO BEDTIME [facility] Last Admin: 04/15/21 20:40 Dose: 10 mg Documented by: Hydroxyzine HCl (Hydroxyzine Hcl 25 Mg Tablet) 25 mg PO BEDTIME PRN PRN Reason: Anxiety Last Admin: 04/15/21 21:51 Dose: 25 mg Documented by: Levothyroxine Sodium (Levothyroxine Sodium 88 Mcg Tablet) 88 mcg PO SUMOTUWETHFR@0600 [facility] Last Admin: 04/16/21 06:41 Dose: 88 mcg Documented by: Levothyroxine Sodium (Levothyroxine Sodium 88 Mcg Tablet) 176 mcg PO SA@0600 [facility] Magnesium Hydroxide (Milk Of Magnesia 30 Ml Oral.Susp) 30 ml PO DAILY PRN PRN Reason: Constipation Multivitamins/Vitamin C (Multivitamin Tablet) 1 tab PO DAILY [facility] Last Admin: 04/16/21 08:37 Dose: 1 tab Documented by: Olanzapine (Olanzapine 2.5 Mg Tablet) 2.5 mg PO BID [facility] Last Admin: 04/16/21 08:37 Dose: 2.5 mg Documented by: Propranolol HCl (Propranolol Hcl 20 Mg Tablet) 20 mg PO BID [facility]; Protocol Last Admin: 04/16/21 08:37 Dose: 20 mg Documented by: Trazodone HCl (Trazodone Hcl 50 Mg Tablet) 50 mg PO BEDTIME PRN PRN Reason: Insomnia Last Admin: 04/14/21 23:15 Dose: 50 mg Documented by: Vitamin D (Cholecalciferol (Vitamin D3) 25 Mcg Tablet) 25 mcg PO DAILY@1200 [facility] Allergies Allergies Allergy/AdvReac Type Severity Reaction Status Date / Time hydrocortisone Allergy Hives Verified 04/14/21 14:10 Penicillins Allergy Rash Verified 04/14/21 14:10 erythromycin base AdvReac Gastrointestinal Verified 04/14/21 14:10 Upset Mental Status Exam Mental Status Exam Narrative: Appearance: casually groomed, fair hygiene in NAD Behavior:anxious, guarded psychomotor: no agitation or retardation noted Speech:clear, normal rate/rhythm/volume, spontaneous Thought process:perseveration on medications Thought content:no overt psychosis, perseveration on finding magic medication Mood: anxious, hopeless Affect: congruent, anxious SI:none HI:none VH/AH:none Delusions:none Insight/judgment:fair x 2. Memory/cog: alert, oriented x 3. not formally tested, but MOCA would be important to complete. Assessment & Plan Assessment & Plan (1) Major depressive disorder, recurrent severe without psychotic features: Status: Acute Code(s): F33.2 - Major depressive disorder, recurrent severe without psychotic features (2) Generalized anxiety disorder: Status: Acute Code(s): F41.1 - Generalized anxiety disorder Assessment and Plan: Mrs. Lopez is a 66 year-old woman with hx of refractory MDD and SUNITA who self presented to [facility] ED due to increase anxious mood, anhedonia, hopeless/helpless. Pt denies SI/HI. Pt reports drastic change 4 years ago in ability to function. Pt reports she used to travel often with and now due to severe anxious mood, she stays mostly in her house other than work. She has had multiple medication trials. Recently started on lexapro again as it worked for many years in past. She is currently on 10mg po daily, we discussed increasing to 20mg po daily. PLAN: 1. admit to m3, 15 minutes checks, CV 2. Increase lexapro to 20mg po daily. 3. consider ECT 4. cognitive decline work up 5. obtain collateral information 6. aftercare planning. Reason for continued inpatient stay Substantial Risk for: inability to function
[2021-04-15] MEDS: clonazePAM 0.5 MG TABLET PO ×2 (14:39→22:25)
[2021-04-15] MEDS: Escitalopram Oxalate 10 MG TABLET PO (20:40)
[2021-04-15 20:41] VITALS: BP 124/64; PULSE 88
[2021-04-15] MEDS: Atorvastatin Calcium 10 MG TABLET PO (20:41)
[2021-04-15 21:18] VITALS: BP 124/64; PULSE 88
[2021-04-15] MEDS: hydrOXYzine HCL 25 MG TABLET PO (21:51)
[2021-04-15] MEDS: Docusate Sodium 100 MG CAPSULE PO (22:29)
[2021-04-16] MEDS: Levothyroxine Sodium 88 MCG TABLET PO (06:41)
[2021-04-16 07:07] LABS: Estimated Average Glucose 117 mg/dL; Hemoglobin A1c % 5.7 %
[2021-04-16 07:09] LABS: Cholesterol 187 mg/dL; HDL Cholesterol 59 mg/dL; LDL Cholesterol Calculated 116 mg/dl; Triglycerides 63 mg/dL
[2021-04-16 07:29] LABS: TSH reflex Free T4 3.01 uIU/mL (0.32-4.0)
[2021-04-16 07:51] LABS: Folate 19.4 ng/mL (> or = 4.0); Vitamin B12 468 pg/mL (200-900)
[2021-04-16 08:34] VITALS: BP 121/66; PULSE 94; RESP 16; TEMP 36.4; O2SAT 95
[2021-04-16 08:37] VITALS: BP 121/66; PULSE 94
[2021-04-16] MEDS: Propranolol HCL 20 MG TABLET PO ×2 (08:37→20:51)
[2021-04-16] MEDS: Multivitamin TABLET 1 TAB PO (08:37)
[2021-04-16] MEDS: OLANZapine 2.5 MG TABLET PO (08:37)
[2021-04-16] MEDS: Escitalopram Oxalate 20 MG TABLET PO (09:41)
[2021-04-16] MEDS: clonazePAM 0.5 MG TABLET PO ×2 (09:41→20:51)
[2021-04-16] MEDS: Docusate Sodium 100 MG CAPSULE 200 MG PO ×2 (11:19→20:50)
[2021-04-16] MEDS: Cholecalciferol (Vitamin D3) 25 MCG TABLET PO (11:19)
--- NOTE | 2021-04-16 14:43 | P.PNPSI_ITS ---
Subjective Subjective Date of Service: 04/16/21 Reason For Visit: Severe anxiety Interim History: pt states she has signed a 3-day notice and that she would like to leave by wednesday bcse she believes she is getting worse here. she is concerned that changes discussed yesterday have not been implemented; meds reviewed and changes of increase in lexapro dose, increase in klonopin dose, and increase in HS zyprexa dose are reviewed. pt appears to be somewhat satisfied by the changes, although she repeatedly asks if they are helpful and appropriate changes. MD assures her these are reasonable changes and explains rationale. she reiterates her desire to leave very soon and expresses strong desire to discharge tomorrow. SW is informed of pt's desire. she denies any safety concerns. per staff, attending groups. very anxious. hopeless. visible but restless. Mental Status Exam Mental Status Exam Narrative: Appearance: casually groomed, fair hygiene in NAD Behavior:anxious, guarded psychomotor: no agitation or retardation noted Speech:clear, normal rate/rhythm/volume, spontaneous Thought process: focused on medications. Thought content:no overt delusions or paranoia Mood: anxious Affect: congruent, anxious SI:none HI:none VH/AH:none Diagnostics Vital Signs (24Hr): Vital Signs - 24 hr 04/15/21 20:41 04/15/21 21:18 04/16/21 08:34 Temperature 97.6 F Pulse Rate 88 88 94 Respiratory Rate 16 Blood Pressure 124/64 124/64 121/66 Pulse Oximetry 95 04/16/21 08:37 Temperature Pulse Rate 94 Respiratory Rate Blood Pressure 121/66 Pulse Oximetry BMI result Body Mass Index 23.5 Labs Labs: Laboratory Results - last 48 hr 04/14/21 04/14/21 04/14/21 14:57 14:58 14:58 Estimat Average Glucose Hemoglobin A1c % Triglycerides Cholesterol LDL Cholesterol, Calc HDL Cholesterol Vitamin B12 Folate TSH Urine Color YELLOW Urine Appearance CLEAR Urine pH 6.0 Ur Specific [place] 1.025 Urine Protein NEG Urine Glucose (UA) NEG Urine Ketones NEG Urine Blood NEG Urine Nitrite NEG Ur Leukocyte Esterase NEG Urine Opiates Screen Not Detected Urine Fentanyl Screen Not Detected Ur Barbiturates Screen Not Detected Ur Phencyclidine Scrn Not Detected Ur Amphetamines Screen Not Detected U Benzodiazepines Scrn Not Detected Urine Cocaine Screen Not Detected U Marijuana (THC) Screen Not Detected COVID-19 ([facility]OVN) Negative COVID-19 [facility] See Note 04/16/21 04/16/21 04/16/21 06:45 06:45 06:45 Estimat Average Glucose 117 Hemoglobin A1c % 5.7 Triglycerides 63 Cholesterol 187 LDL Cholesterol, Calc 116 HDL Cholesterol 59 Vitamin B12 468 Folate 19.4 TSH Urine Color Urine Appearance Urine pH Ur Specific [place] Urine Protein Urine Glucose (UA) Urine Ketones Urine Blood Urine Nitrite Ur Leukocyte Esterase Urine Opiates Screen Urine Fentanyl Screen Ur Barbiturates Screen Ur Phencyclidine Scrn Ur Amphetamines Screen U Benzodiazepines Scrn Urine Cocaine Screen U Marijuana (THC) Screen COVID-19 (KEVON) COVID-19 [employer] Com 04/16/21 06:45 Estimat Average Glucose Hemoglobin A1c % Triglycerides Cholesterol LDL Cholesterol, Calc HDL Cholesterol Vitamin B12 Folate TSH 3.01 Urine Color Urine Appearance Urine pH Ur Specific [place] Urine Protein Urine Glucose (UA) Urine Ketones Urine Blood Urine Nitrite Ur Leukocyte Esterase Urine Opiates Screen Urine Fentanyl Screen Ur Barbiturates Screen Ur Phencyclidine Scrn Ur Amphetamines Screen U Benzodiazepines Scrn Urine Cocaine Screen U Marijuana (THC) Screen COVID-19 (KEVON) COVID-19 [employer] Com Medications Medications Current Medications Acetaminophen (Acetaminophen 325 Mg Tablet) 650 mg PO Q6H PRN PRN Reason: Headache/Pain Mild Scale (1-3) Al Hydroxide/Mg Hydroxide (Magnesium Hydrox/Alum Hydrox 30 Ml Oral.Susp) 30 ml PO Q6H PRN PRN Reason: Heartburn/Nausea Atorvastatin Calcium (Atorvastatin Calcium 10 Mg Tablet) 10 mg PO BEDTIME [facility] Last Admin: 04/15/21 20:41 Dose: 10 mg Documented by: Calcium Carbonate (Calcium Carbonate 500 Mg Tablet) 500 mg PO DAILY@1200 [facility] Last Admin: 04/16/21 11:19 Dose: 500 mg Documented by: Clonazepam (Clonazepam 0.5 Mg Tablet) 0.5 mg PO BID [facility] Last Admin: 04/16/21 09:41 Dose: 0.5 mg Documented by: Clonazepam (Clonazepam 0.5 Mg Tablet) 0.5 mg PO DAILY PRN PRN Reason: anxiety Docusate Sodium (Docusate Sodium 100 Mg Capsule) 100 mg PO DAILY PRN PRN Reason: Constipation Last Admin: 04/15/21 22:29 Dose: 100 mg Documented by: Docusate Sodium (Docusate Sodium 100 Mg Capsule) 200 mg PO BID [facility] Last Admin: 04/16/21 11:19 Dose: 200 mg Documented by: Escitalopram Oxalate (Escitalopram Oxalate 20 Mg Tablet) 20 mg PO DAILY [facility] Last Admin: 04/16/21 09:41 Dose: 20 mg Documented by: Hydroxyzine HCl (Hydroxyzine Hcl 25 Mg Tablet) 25 mg PO BEDTIME PRN PRN Reason: Anxiety Last Admin: 04/15/21 21:51 Dose: 25 mg Documented by: Levothyroxine Sodium (Levothyroxine Sodium 88 Mcg Tablet) 88 mcg PO SUMOTUWETHFR@0600 [facility] Last Admin: 04/16/21 06:41 Dose: 88 mcg Documented by: Levothyroxine Sodium (Levothyroxine Sodium 88 Mcg Tablet) 176 mcg PO SA@0600 [facility] Magnesium Hydroxide (Milk Of Magnesia 30 Ml Oral.Susp) 30 ml PO DAILY PRN PRN Reason: Constipation Multivitamins/Vitamin C (Multivitamin Tablet) 1 tab PO DAILY [facility] Last Admin: 04/16/21 08:37 Dose: 1 tab Documented by: Olanzapine (Olanzapine 5 Mg Tablet) 5 mg PO BEDTIME [facility] Olanzapine (Olanzapine 2.5 Mg Tablet) 2.5 mg PO DAILY [facility] Last Admin: 04/16/21 08:59 Dose: Not Given Documented by: Propranolol HCl (Propranolol Hcl 20 Mg Tablet) 20 mg PO BID [facility]; Protocol Last Admin: 04/16/21 08:37 Dose: 20 mg Documented by: Trazodone HCl (Trazodone Hcl 50 Mg Tablet) 50 mg PO BEDTIME PRN PRN Reason: Insomnia Last Admin: 04/14/21 23:15 Dose: 50 mg Documented by: Vitamin D (Cholecalciferol (Vitamin D3) 25 Mcg Tablet) 25 mcg PO DAILY@1200 [facility] Last Admin: 04/16/21 11:19 Dose: 25 mcg Documented by: Allergies Allergies Allergy/AdvReac Type Severity Reaction Status Date / Time hydrocortisone Allergy Hives Verified 04/14/21 14:10 Penicillins Allergy Rash Verified 04/14/21 14:10 erythromycin base AdvReac Gastrointestinal Verified 04/14/21 14:10 Upset Assessment & Plan Assessment & Plan (1) Major depressive disorder, recurrent severe without psychotic features: Status: Acute Code(s): F33.2 - Major depressive disorder, recurrent severe without psychotic features (2) Generalized anxiety disorder: Status: Acute Code(s): F41.1 - Generalized anxiety disorder Assessment and Plan: Mrs. Lopez is a 66 year-old woman with hx of refractory MDD and SUNITA who self presented to [facility] ED due to increase anxious mood, anhedonia, hopeless/helpless. Pt denies SI/HI. Pt reports drastic change 4 years ago in ability to function. Pt reports she used to travel often with and now due to severe anxious mood, she stays mostly in her house other than work. She has had multiple medication trials. Recently started on lexapro again as it worked for many years in past. She is currently on 10mg po daily, we discussed increasing to 20mg po daily. PLAN: 1. admit to m3, 15 minutes checks, CV 2. Increased lexapro to 20mg po daily, zyprexa from 2.5 BID to 2.5/5, and klonopin from 0.25 BID to 0.5 BID. 3. consider ECT 4. cognitive decline work up 5. obtain collateral information 6. aftercare planning. I spent minutes with the patient and/or on the patient floor today, greater than?50% of which was spent counseling/coordinating care. Reason for contiued inpatient stay Substantial Risk for: inability to function and rapid decompensation
--- NOTE | 2021-04-16 15:03 | MHC.CLN ---
NUTRITION WEIGHT LOSS 2-13# REPORTED. REVIEW OF WEIGHT HISTORY SHOWS WEIGHT LOSS OF -5.5% X 1 YEAR. WEIGHT LOSS NOT SIGNIFICANT.
[2021-04-16] MEDS: Atorvastatin Calcium 10 MG TABLET PO (20:50)
[2021-04-16 20:51] VITALS: BP 122/79; PULSE 90; RESP 18; TEMP 36.6; O2SAT 94
[2021-04-16] MEDS: OLANZapine 5 MG TABLET PO (20:51)
[2021-04-17] MEDS: Levothyroxine Sodium 88 MCG TABLET PO (08:00)
[2021-04-17] MEDS: clonazePAM 0.5 MG TABLET PO (08:31)
[2021-04-17] MEDS: Escitalopram Oxalate 20 MG TABLET PO (08:31)
[2021-04-17] MEDS: OLANZapine 2.5 MG TABLET PO (08:31)
[2021-04-17 08:32] VITALS: BP 141/80; PULSE 83
[2021-04-17] MEDS: Propranolol HCL 20 MG TABLET PO (08:32)
--- NOTE | 2021-04-17 09:55 | P.DS_ITS ---
DS: Providers Provider Date of Service: 04/17/21 Date of admission: 04/14/21 22:03 Primary care physician: Cristiana Weeks MD DS: Diagnosis Discharge Diagnosis (1) Major depressive disorder, recurrent severe without psychotic features: Status: Acute (2) Generalized anxiety disorder: Status: Acute DS: Medications Discharge Medications Home Medications: Home Medications Medication Instructions Recorded Confirmed atorvastatin 10 mg tablet 10 mg PO BEDTIME 04/23/20 04/14/21 levothyroxine 88 mcg tablet 88 mcg PO SUMOTUWETHFR@0600 04/23/20 04/14/21 levothyroxine 88 mcg tablet 176 mcg PO SA@0600 04/23/20 04/14/21 calcium carbonate 500 mg calcium 500 mg PO DAILY 04/11/21 04/14/21 (1,250 mg) tablet (Calcium 500) cholecalciferol (vitamin D3) 25 25 mcg PO DAILY 04/11/21 04/14/21 mcg (1,000 unit) tablet (Vitamin D3) clonazepam 0.5 mg tablet 0.25 mg PO BID 04/11/21 04/14/21 clonazepam 0.5 mg tablet 0.5 mg PO DAILY@1200 04/11/21 04/14/21 cyclosporine 0.05 % eye drops in a 1 drp OPHTHALMIC (EYE) DAILY 04/11/21 04/14/21 dropperette (Restasis) docusate sodium 100 mg capsule 100 mg PO DAILY PRN 04/11/21 04/14/21 (Colace) multivitamin 1 tab PO DAILY 04/11/21 04/14/21 propranolol 20 mg tablet 1 tab PO BID 04/14/21 04/14/21 Previous Rx's Medication Instructions Recorded docusate sodium 100 mg capsule 200 mg PO BID #60 cap 04/17/21 escitalopram oxalate 20 mg tablet 20 mg PO DAILY #30 tab 04/17/21 olanzapine 2.5 mg tablet 2.5 mg PO DAILY #30 tab 04/17/21 olanzapine 5 mg tablet 5 mg PO BEDTIME #30 tab 04/17/21 Mental Status Exam Mental Status Exam Narrative: Appearance: casually groomed, fair hygiene in NAD Behavior:anxious, guarded psychomotor: no agitation or retardation noted Speech:clear, normal rate/rhythm/volume, spontaneous Thought process:perseveration on medications Thought content:no overt psychosis, perseveration on finding magic medication Mood: anxious,but less hopeless Affect: congruent, anxious SI:none HI:none VH/AH:none Delusions:none Insight/judgment:fair x 2. Memory/cog: alert, oriented x 3. not formally tested, but MOCA would be important to complete. Data Data Completed and Pending Completed studies during hospitalization [Text1]: 04/14/21 04/14/21 04/14/21 14:57 14:58 14:58 Estimat Average Glucose Hemoglobin A1c % Triglycerides Cholesterol LDL Cholesterol, Calc HDL Cholesterol Vitamin B12 Folate TSH Urine Color YELLOW Urine Appearance CLEAR Urine pH 6.0 Ur Specific [place] 1.025 Urine Protein NEG Urine Glucose (UA) NEG Urine Ketones NEG Urine Blood NEG Urine Nitrite NEG Ur Leukocyte Esterase NEG Urine Opiates Screen Not Detected Urine Fentanyl Screen Not Detected Ur Barbiturates Screen Not Detected Ur Phencyclidine Scrn Not Detected Ur Amphetamines Screen Not Detected U Benzodiazepines Scrn Not Detected Urine Cocaine Screen Not Detected U Marijuana (THC) Screen Not Detected COVID-19 ([facility]) Negative COVID-19 Clin Com See Note 04/16/21 04/16/21 04/16/21 06:45 06:45 06:45 Estimat Average Glucose 117 Hemoglobin A1c % 5.7 Triglycerides 63 Cholesterol 187 LDL Cholesterol, Calc 116 HDL Cholesterol 59 Vitamin B12 468 Folate 19.4 TSH Urine Color Urine Appearance Urine pH Ur Specific [place] Urine Protein Urine Glucose (UA) Urine Ketones Urine Blood Urine Nitrite Ur Leukocyte Esterase Urine Opiates Screen Urine Fentanyl Screen Ur Barbiturates Screen Ur Phencyclidine Scrn Ur Amphetamines Screen U Benzodiazepines Scrn Urine Cocaine Screen U Marijuana (THC) Screen COVID-19 ([facility]) COVID-19 Clin Com 04/16/21 06:45 Estimat Average Glucose Hemoglobin A1c % Triglycerides Cholesterol LDL Cholesterol, Calc HDL Cholesterol Vitamin B12 Folate TSH 3.01 Urine Color Urine Appearance Urine pH Ur Specific [place] Urine Protein Urine Glucose (UA) Urine Ketones Urine Blood Urine Nitrite Ur Leukocyte Esterase Urine Opiates Screen Urine Fentanyl Screen Ur Barbiturates Screen Ur Phencyclidine Scrn Ur Amphetamines Screen U Benzodiazepines Scrn Urine Cocaine Screen U Marijuana (THC) Screen COVID-19 ([facility]) COVID-19 Clin Com DS: Summary Hospital Course Hospital Course: Narrative: Ms. Lopez is a 66 year-old woman with hx of MDD and SUNITA, multiple past failed medication trials and past inpatient admission who self presented to [facility] ED reporting increased anxious mood, rumination about whether she will ever get better, hopeless/helpless, poor sleep. In the ED, utox was negative. On the unit, Ms. Lopez presents as very anxious, ruminating about whether there will be a magic medication that will decrease her anxiety and depression. She reports she experienced a significant decline in ability to function almost 4 years ago. She reports she was outgoing, would travel places with her , enjoyed going out. She reports for the past 4 years due to anxious mood she does not leave the house, only to go to work, with plan to retire this coming 04/18. She reports she does not want to travel with as she used to due to anxious mood. She just recently finished TMS, 30 sessions with no benefit. Pt denies suicidal ideation or any plan or intent. However, she reports feeling extremely hopeless that she will ever feel any better. Past Psychiatric History: Out Pt: Christine Stanley APRN. Therapist is Angelica Carreon Trials: Paxil, Prozac, Cymbalta, Lexapro, Celexa, Trintellix, Wellbutrin, Sertraline, Buspar, Amoxapine, Seroquel, Olanzapine, Mirtazapine, Gabapentin, Trileptal, Topamax, Trazodone. Hx of work with Raquel [place], Dr. Donald, and [facility] PHP. Reports Mar 2019 Trintellix had mild efficacy. Wellbutrin was added when COVID- 19 began, then changed to Citalopram. In Dec 2019 Propranolol was added and in Feb 2020 Effexor was trialed (sleep is poor after this initiation). Medical Evaluation Reviewed: Yes HOSPITAL COURSE On the unit, Mrs. Lopez was admitted on CV, she did signed 3 day notice. She presented as very anxious, significant functional decline in past 2-3 years, limiting herself to going to work and going home but now soon will retired. She denied suicidal or homicidal ideation. no signs of psychosis or delusional content. Pt reported being very sensitive to medications. We discussed risks, benefits and alternative treatment options. Pt agreed to increase Olanzapine to 5mg po at bedtime and 2.5mg po daily. She also agreed to increase clonazepam to 0.5mg po BID. Pt reported feeling very anxious and uncomfortable on the unit. We also discussed considering ECT for anxious depression, but pt declined. Collateral information gathered from her OP psych provider, Christine Stanley and her . Given that there was no imminent safety concerns at time of discharge, pt was discharged home to continue OP psych tx. She declined PHP. She had TMS but this was not helpful. denied safety concern at time of discharge. There were no incidences of disruptive behaviors nor use of restraints. Status at Discharge Cognitive/behavioral status at discharge: Pt anxious, ruminative about her anxiety and whether she will get better. No SI/HI. No signs of aggression towards self or others. No VH/AH. No signs of delusions. Functional status at discharge: independent ambulation Overall status at discharge: patient is progressing back to baseline Time Spent with Patient Time attestation: Total time spent providing and/or coordinating discharge services: Discharge Plan Discharge Patient Disposition: Home, Self-Care Discharge Diagnosis: MDD, recurrent, severe SUNITA Referrals: Angelica Carreon - Therapy [Other] - 04/23/21 (Telehealth Appointment) Christine Stanley - Psychiatry [Other] - 04/28/21 () Cristiana Weeks MD [Primary Care Provider] - 1 Week (Provider would call pt for follow up appt.) Discharge Medications: New olanzapine 5 mg Tablet 5 mg PO BEDTIME Qty: 30 RF: 0 olanzapine 2.5 mg Tablet 2.5 mg PO DAILY Qty: 30 RF: 0 docusate sodium 100 mg Capsule 200 mg PO BID Qty: 60 RF: 0 escitalopram oxalate 20 mg Tablet 20 mg PO DAILY Qty: 30 RF: 0 clonazepam 0.5 mg Tablet 0.5 mg PO BID Qty: 0 RF: 0 clonazepam 0.5 mg Tablet 0.5 mg PO DAILY PRN (Reason: anxiety) Qty: 0 RF: 0 Continued levothyroxine 88 mcg Tablet 88 mcg PO SUMOTUWETHFR@0600 RF: 0 atorvastatin 10 mg Tablet 10 mg PO BEDTIME RF: 0 levothyroxine 88 mcg Tablet 176 mcg PO SA@0600 RF: 0 Restasis 0.05 % dropperette 1 drp ophthalmic (eye) DAILY RF: 0 multivitamin Tablet 1 tab PO DAILY RF: 0 calcium carbonate [Calcium 500] 500 mg calcium (1,250 mg) Tablet 500 mg PO DAILY RF: 0 docusate sodium [Colace] 100 mg Capsule 100 mg PO DAILY PRN (Reason: Constipation) RF: 0 cholecalciferol (vitamin D3) [Vitamin D3] 25 mcg (1,000 unit) Tablet 25 mcg PO DAILY RF: 0 propranolol 20 mg tablet 1 tab PO BID RF: 0 Discontinued clonazepam 0.5 mg tablet 0.5 mg PO DAILY@1200 RF: 0 escitalopram oxalate 10 mg tablet 10 mg PO BEDTIME RF: 0 clonazepam 0.5 mg tablet 0.25 mg PO BID RF: 0 olanzapine 2.5 mg tablet 2.5 mg PO BID RF: 0 Discharge Orders: Discharge Order (Routine); Ordered 04/17/21 Ordered By: Chela Chino Diet: regular diet Activity on Discharge: As tolerated Stand Alone Forms: Patient Portal Discharge page, Community Support Care Plan Goals: 1. Maintain mood 2. No SI/HI Health Concerns: 1. follow up with PCP Plan of Treatment: 1. Take medications as prescribed. 2. Continue working with OP provider to make medication adjustments 3. Go to nearest ED or call 911 in event of emergency. Assessment: Pt continues to report anxious mood, some hopelessness but less in that she is more future oriented looking forward to continue working with OP providers to further adjust mood. More receptive to try new medications at more therapeutic doses. No SI/HI. No signs of aggression towards self or others. Discharge Date/Time: 04/17/21 11:22
--- NOTE | 2021-04-17 10:09 | PC.NURSE ---
Puja is alert, fully oriented, anxious but cooperative with discharge process. She reports she came to the hospital for medication adjustment and feels that this goal has been met. She states she believes she will continue to improve at home. Puja denies ideation, plan or intent to harm self or others. She denies perceptual disturbance of any kind. She denies physical complaint and vital signs are stable. Following teaching she verbalizes understanding of all discharge medications and appointments. [ End ]
== END 2021-04-17 11:22 | disposition home or self-care (01) | DRG 885 ==
LOC: HO.ED 21:51 → HO.PADLT16 22:11
PROVIDERS: Admitting Provider Psychiatry & Neurology Psychiatry; Emergency Provider Emergency Medicine; PCP Internal Medicine; Visit Provider Social Worker
DX: F33.2 Major depressive disorder, recurrent severe without psychotic features (principal); F41.1 Generalized anxiety disorder; E78.5 Hyperlipidemia, unspecified; E03.9 Hypothyroidism, unspecified; Z20.822 Contact with and (suspected) exposure to COVID-19; Z88.0 Allergy status to penicillin; Z79.890 Hormone replacement therapy; Z79.899 Other long term (current) drug therapy
CPT/HCPCS: 36415; 80061; 80307; 81003; 82607; 82746; 83036; 84443; 87635; 99285

== ENCOUNTER 2021-12-05 08:00 | Outpatient (RCR) | payer BC, SELFPAY ==
--- NOTE | 2021-11-25 14:31 | PC.ADMIT ---
Patient is a 66 year old woman who was advised to come to [facility] by her prescriber Christine Stanley APrN d/t increase in depression and anxiety sxs. Patient reports passive SI stating she is having thoughts stating, this won't end until I . Patient denied plan or intent. She stated she does not want to . Reports her is supportive. Patient reports she has no structure. Stresses include her mother being in the hospital and she is not able to visit as she tested positive for COVID-19. Patient also stated she is taking care of a new puppy which is overwhelming. Patient reports she was recently taken off Methylphenidate by her prescriber Christine Stanley as she had an abnormal EKG test and is scheduled for an upcoming nuclear stress test as patient stated if she walks up a hill she experiences tightness in her chest. Patient also stated her thyroid was tested recently and the levels came back high thus Levothyroxine was increased from 88-112 mcg. Patient reports she will be retested in 6 weeks. Patient feeling helplessness and hopelessness. Believes she will never get better. Patient reports since she retired she does not know what to do with herself. Patient is alert and oriented x4. Presents with depressed mood and anxious affect. Medications reconciled with patient and patient's pharmacy. Patient reports taking medications as prescribed.
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
--- NOTE | 2021-11-27 12:57 | HO.PHPPROGNO ---
Subjective Subjective Date of Service: 11/27/21 Reason For Visit: SUNITA,MDD Medical Problems Affecting Mental Status: No Interim History: Continues with anxiuos, depressed mood, anxious affect. Took the additional 2.5mg olanzapine X 2 days, did not find effective. Anxious about upcoming nuclear stress test scheduled next . Interested in medication increases. No SI/HI, no safety concerns. Medication Compliance: Yes Side effects from medications: No Attending Groups: Yes Review of Systems Acute medical concerns: No Medical Review of Systems: unchanged Review of Systems Review of Systems Yes all other systems are reviewed and are negative Constitutional: Reports no additional constitutional complaints Mental Status Exam Mental Status Exam Narrative: NAD. Fully attentive and appropriate throughout meeting. Patient Appearance: Well Grooomed and Appropriate Patient Orientation: Person, Place, Time and Situation Level of Consciousness: Appropriate Patient Behavior: Appropriate, Anxious and Good Eye Contact Mood Description: Depressed and Anxious Affect Description: Depressed and Anxious Patient Cognition Impaired: No Ability to Follow Directions: Good Speech Pattern: Clear, Appropriate and Coherent Memory Description: Intact Hallucinations: None Delusions: Not Present Thought Process: Intact and Rumination Thought Content: positive for Obsessional Thoughts (Focused on upcoming nuclear stress test next week, catastrophic thinking. ), positive for Perseveration and positive for Preoccupation Depressive Symptoms: Increased Anxiety, Diff. Making Decisions, Changes in Appetite (reduced), Loss of Int. in Activity, Hopelessness, Feelings of Guilt, Unhappiness, Increased Fatigue, Loss of Energy and Difficulty Concentrating Judgement: Fair Assessment & Plan Assessment & Plan (1) Major depressive disorder, recurrent severe without psychotic features: Status: Acute Code(s): F33.2 - Major depressive disorder, recurrent severe without psychotic features Assessment and Plan: Continues with anxiuos, depressed mood, anxious affect. Describes continued depressive symptoms as low energy, poor concentration, decreased appetite, anhedonia. No SI/HI, no safety concerns. Patient states that she feels safe. Discussed increase of vilazodone from 20 mg to 40 mg daily. Patient has been taking his medication for 8 to 9 weeks, with little reported effect. She is willing to increase dose at this time. (2) Generalized anxiety disorder: Status: Acute Code(s): F41.1 - Generalized anxiety disorder Assessment and Plan: Took the additional 2.5mg olanzapine X 2 days, did not find effective. Continues feeling nervous, on edge, excessive worry, difficulty relaxing, fatigue, restlessness, feeling as if something will happen awful. Focused on upcoming nuclear stress test, which is causing her to have increased anxiety. We discussed possibility of increasing Zyprexa from the 2.5 p.r.n. to 5mg. She states she did not find the extra dose to be helpful in managing anxiety symptoms over past several days. Patient currently has scheduled Klonopin 0.5 mg b.i.d.. She also utilizes 0.25mg once daily p.r.n., discussed increasing it 0.5. She is willing to try this. Plan 1. Continue with current [facility] plan of care. 2. Increase p.r.n. clonazepam does from 0.25 to 0.5 mg daily. Will continued current scheduled dosing. 3. Stop P.r.n. olanzapine 2.5 mg daily. 4. Increase scheduled vilazodone to 40mg daily. 5. Follow-up as per protocol. Patient educated on: diagnosis, medication risk/benefits and therapeutic strategies Informed Consent: understands Reason for contiued partial hosp. stay Substantial Risk for: inability to function, rapid decompensation and med/psych decompensation Certification I certify that partial hospital treatment is medically necessary due to the symptoms and problems resulting from the patient's mental illness and the failure to treat the patient at the partial hospital level of care would likely result in the patient requiring inpatient psychiatric care which could not be prevented at a less intensive level of care. I spent minutes with the patient and/or on the patient floor today, greater than?50% of which was spent counseling/coordinating care. Discharge Plan Discharge Attending provider: Naren Wharton Medications: New vilazodone 40 mg tablet 40 mg PO DAILY 30 Days Qty: 30 0RF Rx Instructions: must administer with a meal/food Discontinued vilazodone [Viibryd] 20 mg Tablet 20 mg PO DAILY Rx Instructions: must administer with a meal/food No Action multivitamin Tablet 1 tab PO DAILY clonazepam 0.5 mg Tablet 0.5 mg PO BID Qty: 0 0RF clonazepam 0.5 mg Tablet 0.5 mg PO DAILY PRN (Reason: anxiety) Qty: 0 0RF atorvastatin 20 mg Tablet 20 mg PO BEDTIME propranolol 80 mg Capsule,Extended Release 24 Hr 80 mg PO DAILY levothyroxine 112 mcg Tablet 112 mcg PO DAILY olanzapine 2.5 mg tablet 2.5 mg PO BID Telehealth Telehealth Location of provider rendering services: practice address Location of patient: address on file Patient Identification confirmed using: Name, : Yes Telehealth method: video Patient verbally consented to treatment: Yes Patient verbally consented to billing insurance company: Yes Patient informed of any privacy concerns related to visit: Yes Minutes spent on Phone/Video with Pt.: 15
--- NOTE | 2021-11-28 08:23 | PC.NURSE ---
Case opened in treatment team
--- NOTE | 2021-12-02 14:45 | HO.PHPPROGNO ---
Subjective Subjective Date of Service: 12/02/21 Reason For Visit: SUNITA,MDD Medical Problems Affecting Mental Status: No Interim History: Describes mood as ?I am still feeling very anxious ?. Reports feeling lightheaded, dizzy at times. States she is drinking 24 oz of water daily. Complains of constipation. States increased Viibryd dose not helpful after 5 days. No SI/HI reported, no safety concerns. Attempting various coping skills with little success. Medication Compliance: Yes Side effects from medications: No Attending Groups: Yes Review of Systems Acute medical concerns: No Medical Review of Systems: unchanged Review of Systems Review of Systems Yes all other systems are reviewed and are negative Constitutional: Reports no additional constitutional complaints Mental Status Exam Mental Status Exam Narrative: NAD. Alert and oriented, fully attentive during encounter. No tics or tremors noted, gait / ambulation not observed. Patient Appearance: Well Grooomed and Appropriate Patient Orientation: Person, Place, Time and Situation Level of Consciousness: Appropriate Patient Behavior: Appropriate, Anxious and Good Eye Contact Mood Description: Anxious Affect Description: Anxious Patient Cognition Impaired: No Ability to Follow Directions: Good Speech Pattern: Clear, Appropriate and Coherent Memory Description: Intact Hallucinations: None Delusions: Not Present Thought Process: Intact and Rumination Thought Content: positive for Perseveration and positive for Preoccupation Depressive Symptoms: Increased Anxiety, Diff. Making Decisions, Changes in Appetite (reduced), Loss of Int. in Activity, Hopelessness, Feelings of Guilt, Unhappiness, Loss of Energy and Difficulty Concentrating Judgement: Fair Assessment & Plan Assessment & Plan (1) Major depressive disorder, recurrent severe without psychotic features: Status: Acute Code(s): F33.2 - Major depressive disorder, recurrent severe without psychotic features Assessment and Plan: Patient states she feels more anxious today than anything. Catastrophic thinking regarding upcoming nuclear stress test. (2) Generalized anxiety disorder: Status: Acute Code(s): F41.1 - Generalized anxiety disorder Assessment and Plan: Patient continues with anxiety. Questions the effectiveness of the increased dose of Viibryd to 40 mg. We discussed medications. Instructed patient to remain on the 40 mg, in order to have a fair trial. She stated that she would do so. Patient has been hesitant to utilize p.r.n. Klonopin during the day. Patient was encouraged to utilize the dose as needed, as she reports daily intense anxiety. We discussed coping skills. She reports that she has been trying to distract herself, by counting, word puzzles, etc.. She listens to music in the car, soft 7 D/80s rock. She was encouraged to listen to soft music while in the home as well. We discussed walking the perimeter of her yd with her dog, as a way to reduce physical stress. She was also encouraged to use progressive relaxation techniques, and deep breathing. She states that she will try this. Patient was also encouraged to increase her water intake, as she is currently only drinking 3 glasses of fluids daily. Plan 1. Continue with current [facility] plan of care. 2. Continue with current medication regimen. 3. Patient to practice coping skills, as well as increase fluid intake. 4. Follow-up as per protocol. Patient educated on: diagnosis, medication risk/benefits and therapeutic strategies Informed Consent: understands Reason for contiued partial hosp. stay Substantial Risk for: inability to function, rapid decompensation and med/psych decompensation Certification I certify that partial hospital treatment is medically necessary due to the symptoms and problems resulting from the patient's mental illness and the failure to treat the patient at the partial hospital level of care would likely result in the patient requiring inpatient psychiatric care which could not be prevented at a less intensive level of care. I spent minutes with the patient and/or on the patient floor today, greater than?50% of which was spent counseling/coordinating care. Discharge Plan Discharge Attending provider: Naren Wharton Medications: New vilazodone 40 mg tablet 40 mg PO DAILY 30 Days Qty: 30 0RF Rx Instructions: must administer with a meal/food Discontinued vilazodone [Viibryd] 20 mg Tablet 20 mg PO DAILY Rx Instructions: must administer with a meal/food No Action multivitamin Tablet 1 tab PO DAILY clonazepam 0.5 mg Tablet 0.5 mg PO BID Qty: 0 0RF clonazepam 0.5 mg Tablet 0.5 mg PO DAILY PRN (Reason: anxiety) Qty: 0 0RF atorvastatin 20 mg Tablet 20 mg PO BEDTIME propranolol 80 mg Capsule,Extended Release 24 Hr 80 mg PO DAILY levothyroxine 112 mcg Tablet 112 mcg PO DAILY olanzapine 2.5 mg tablet 2.5 mg PO BID Telehealth Telehealth Location of provider rendering services: practice address Location of patient: address on file Patient Identification confirmed using: Name, : Yes Telehealth method: video Patient verbally consented to treatment: Yes Patient verbally consented to billing insurance company: Yes Patient informed of any privacy concerns related to visit: Yes Minutes spent on Phone/Video with Pt.: 15
--- NOTE | 2021-12-05 14:05 | PC.NURSE ---
Left a message with Angelica Carreon [employer] regarding Joannes discharge from [facility].
--- NOTE | 2021-12-08 10:06 | PC.NURSE ---
Discharge Note for 12/05/2021. Patient discharged from [facility]. Routine discharge. Patient states ready for discharge. Denies SI. Denies HI. Patient in agreement with discharge plan and states understanding. Patient seen by [facility] prior to discharge. Patient understands discharge medications including use, frequency, side effects. Patient discharged to out patient providers. Medication list faxed to out patient providers.
== END 2021-12-05 23:59 | disposition home or self-care (01) ==
LOC: HO.PHPA 08:00
PROVIDERS: Visit Provider Psychiatry & Neurology Psychiatry
DX: F33.2 Major depressive disorder, recurrent severe without psychotic features (principal); F41.1 Generalized anxiety disorder; Z79.899 Other long term (current) drug therapy
CPT/HCPCS: 90791; 90853

== ENCOUNTER 2022-04-21 12:48 | Inpatient (IN) | payer BC, SELFPAY ==
--- NOTE | 2022-04-21 | ECG_ITS ---
Test Reason : MED CLEARANCE Blood Pressure : / mmHG Vent. Rate : 088 BPM Atrial Rate : 088 BPM P-R Int : 136 ms QRS Dur : 078 ms QT Int : 376 ms P-R-T Axes : 062 039 049 degrees QTc Int : 454 ms Normal sinus rhythm Possible Left atrial enlargement Nonspecific ST and T wave abnormality Abnormal ECG When compared with ECG of 11-APR-2021 14:18, Nonspecific T wave abnormality, worse in Anterior leads Referred By: Brad Benoit Electronically Signed By:ISIAH NICOLE
--- NOTE | ~2022-04-21 | MR_ITS ---
EXAMINATION: BRAIN MRI WITHOUT CONTRAST. CLINICAL INFORMATION: Pre-ECT confusional periods. COMPARISON: No relevant prior imaging. TECHNIQUE: Multiplanar MR imaging of the brain was performed without contrast. FINDINGS: There are a few scattered nonspecific foci of T2 FLAIR signal hyperintensity within the periventricular white matter. No acute territorial infarct. No pathological magnetic susceptibility artifact. Intracranial vascular flow voids are maintained. There is no intracranial mass effect or midline shift. No abnormal extra-axial collection. Lateral and third ventricles are normal. No hydrocephalus. Midline structures including the cervicomedullary junction are normal. There is a trace right mastoid tip effusion. No active paranasal sinus disease. Globes and orbits are grossly symmetric. MR/MR head/brain wo con IMPRESSION: There are a few scattered nonspecific signal changes within the periventricular white matter. Otherwise unremarkable examination. No evidence of acute territorial infarct or hemorrhage. No intracranial mass effect or hydrocephalus.
[2022-04-21 12:57] VITALS: BP 152/96; BP 153/84; PULSE 100; PULSE 104; RESP 22; TEMP 37.6; O2SAT 95; O2SAT 96; BMI 21.9
[2022-04-21 13:25] LABS: Appearance Urine Cloudy; Color Urine Dark Yellow; Glucose Urine UA Negative (Negative); Leukocyte Esterase Urine Moderate (2+) (Negative); Nitrite Urine Negative (Negative); Specific Gravity - Urine 1.025 (1.005-1.025); UMIC TRIGGER UACC YES; Urine Blood Negative (Negative); Urine Ketones 15 mg/dL (Negative); Urine Protein 100 (2+) mg/dL (Neg-Trace)
[2022-04-21 13:39] LABS: Amphetamine Screen Urine Not Detected (Not Detect); Barbiturates, Urine Not Detected (Not Detect); Benzodiazepines Screen Urine POSITIVE (Not Detect); Cannabinoid Screen Urine Not Detected (Not Detect); Cocaine Screen Urine Not Detected (Not Detect); Fentanyl, urine Not Detected (Not Detect); Opiate Screen Urine Not Detected (Not Detect); Phencyclidine Screen Urine Not Detected (Not Detect)
--- NOTE | 2022-04-21 13:41 | ED.PSYCH ---
HPI - Psych General Chief Complaint: Psychiatric Symptoms Stated Complaint: SEC 12,SI W/PLAN,SEEN IN COMM BY N Time Seen by Provider: 04/21/22 13:36 Source: patient Mode of arrival: ambulatory Limitations: no limitations History of Present Illness HPI Narrative: This is 67 years old female presented to the emergency department with a chief complaint of depression and anxiety. She states the anxiety is so bad that she cannot function MD complaint: suicidal ideation Onset (ago): day(s) (1) Duration: constant History of same: Yes Relieving factors: none Exacerbating factors: none Associated psychiatric symptoms: depression and suicidal ideation Treatments prior to arrival: none Related Data Home Medications Medication Instructions Recorded Confirmed multivitamin 1 tab PO DAILY 04/11/21 04/21/22 amlodipine 5 mg tablet 1 tab PO DAILY 04/21/22 04/21/22 atorvastatin 40 mg tablet 1 tab PO DAILY 04/21/22 04/21/22 cholecalciferol (vitamin D3) 25 25 mcg PO DAILY 04/21/22 04/21/22 mcg (1,000 unit) tablet clonazepam 0.5 mg tablet 1 tab PO BID 04/21/22 04/21/22 indapamide 1.25 mg tablet 1 tab PO QAM 04/21/22 04/21/22 levothyroxine 125 mcg tablet 62.5 mcg PO SA 04/21/22 04/21/22 levothyroxine 125 mcg tablet 125 mcg PO SUMOTUWETHFR 04/21/22 04/21/22 Previous Rx's Medication Instructions Recorded vilazodone 40 mg tablet 40 mg PO DAILY 30 days #30 tabs 11/27/21 Allergies Allergy/AdvReac Type Severity Reaction Status Date / Time hydrocortisone Allergy Hives Verified 04/14/21 14:10 Penicillins Allergy Rash Verified 04/14/21 14:10 erythromycin base AdvReac Gastrointestinal Verified 04/14/21 14:10 Upset Review of Systems Constitutional: Constitutional: Reports no additional constitutional complaints Cardiovascular: Cardiovascular: Reports no additional cardiovascular complaints Neurologic: Reports behavioral changes Psychiatric: Psychiatric: Reports anxiety and Reports behavioral changes [facility] Past Medical History [facility] Narrative: anxiety/HTN Medical History Hyperlipidemia Hypothyroidism Tinnitus Surgical History H/O shoulder surgery History of endometrial ablation Hx of foot surgery Hx of tonsillectomy Social History Social History Household Members: Spouse Housing: House Do you presently have visiting nurse or other home services: No Alcohol intake: unknown Patient Tobacco Use Status: Never used Tobacco Smoked in Last 30 Days: No e-Cigarette/Vaping Use: Never Used Second Hand Smoke Exposure: No Use of substances other than those prescribed or required for medical reasons: No Advance Directives: Yes Advance Directives Information Provided: Yes Advance Directives on File: No service: No Sexual orientation: Straight/Heterosexual Physical Exam Vital Signs: Vital Signs: Last Vital Signs Temp 99.7 F 04/21/22 12:57 Pulse 100 04/21/22 12:57 Resp 22 H 04/21/22 12:57 BP 153/84 H 04/21/22 12:57 Pulse Ox 95 04/21/22 12:57 O2 Del Method 04/21/22 12:57 BMI result Body Mass Index 21.9 Const: General: cooperative Nutritional Appearance: average body habitus Orientation/consciousness: patient oriented x3 Limitations: no limitations HEENT: Head: Yes normal to inspection Face and sinus: Yes normal facial exam Mouth: Normal oral and palatal mucosa present Neck: Neck: Yes normal visual inspection and Yes full ROM Chest: Chest palpation & inspection: normal inspection of the chest Resp: Effort & Inspection: normal respiratory effort Auscultation: clear to auscultation bilaterally Cardio: Jugular venous distension: no JVD Rate: regular rate Rhythm: regular rhythm GI: Inspection: Yes normal to inspection Palpation (GI): Soft to palpation, not firm and nontender : General: Yes no CVA tenderness Back/Spine/Pelvis: Back: no CVA tenderness Neuro: General: patient oriented x3 Psych: Appearance: grossly normal Affect: Anxious affect present Course Reevaluation(s) Reevaluation #1: signed out to Dr Aguilar Time: 16:26 Medications Administered Discontinued Medications Generic Name Dose Route Start Last Admin Trade Name Freq PRN Reason Stop Dose Admin Alprazolam 1 mg 04/21/22 13:40 04/21/22 13:51 Alprazolam 0.5 Mg Tablet PO 04/21/22 13:41 1 mg ONCE ONE Administration Medical Decision Making Lab Data Labs: Lab Results 04/21/22 04/21/22 04/21/22 Range/Units 13:15 13:15 13:15 Urine Color Dark Yellow Urine Appearance Cloudy Urine pH 6.0 (5.0-9.0) Ur Specific [place]cano 1.025 (1.005-1.025) Urine Protein 100 (2+) H (Neg-Trace) mg/dL Urine Glucose (UA) Negative (Negative) mg/dL Urine Ketones 15 (Negative) mg/dL Urine Blood Negative (Negative) Urine Nitrite Negative (Negative) Ur Leukocyte Esterase Moderate (2+) H (Negative) Urine RBC 0-2 (0-2) /HPF Urine WBC 21-50 H (0-5) /HPF Ur Squamous Epith Cells >20 (0-2) /HPF Urine Bacteria 1+ (None Seen) Hyaline Casts 3-5 (0-2) /LPF Urine Opiates Screen Not Detected (Not Detect) Urine Fentanyl Screen Not Detected (Not Detect) Ur Barbiturates Screen Not Detected (Not Detect) Ur Phencyclidine Scrn Not Detected (Not Detect) Ur Amphetamines Screen Not Detected (Not Detect) U Benzodiazepines Scrn POSITIVE H (Not Detect) Urine Cocaine Screen Not Detected (Not Detect) U Marijuana (THC) Screen Not Detected (Not Detect) Influenza Type A (PCR) NEGATIVE (Negative) Influenza Type B (PCR) NEGATIVE (Negative) RSV RNA Qual (PCR) NEGATIVE (Negative) SARS-CoV-2 RNA (RT-PCR) NEGATIVE (Negative) Discharge Plan Discharge Clinical Impression: Major depressive disorder, recurrent severe without psychotic features Prescriptions: No Action multivitamin Tablet 1 tab PO DAILY vilazodone 40 mg tablet 40 mg PO DAILY 30 Days Qty: 30 0RF Rx Instructions: must administer with a meal/food atorvastatin 40 mg tablet 1 tab PO DAILY clonazepam 0.5 mg tablet 1 tab PO BID amlodipine 5 mg tablet 1 tab PO DAILY levothyroxine 125 mcg tablet 125 mcg PO SUMOTUWETHFR indapamide 1.25 mg tablet 1 tab PO QAM levothyroxine 125 mcg tablet 62.5 mcg PO SA cholecalciferol (vitamin D3) 25 mcg (1,000 unit) Tablet 25 mcg PO DAILY Interventions: Donley-Suicide Risk Severity Scale Last Done: 04/21/22 12:59
[2022-04-21 13:43] LABS: Bacteria Urine 1+ (None Seen); RBC Urine 0-2 /HPF (0-2); Squamous Epithelial Cell Urine >20 /HPF (0-2); UACC Culture Trigger YES; WBC Urine 21-50 /HPF (0-5)
[2022-04-21] MEDS: ALPRAZolam 0.5 MG TABLET 1 MG PO (13:51)
--- NOTE | 2022-04-21 13:59 | PC.NURSE ---
Spoke with N who confirmed patient has already been evaluated in the community.
[2022-04-21 14:02] LABS: Influenza A PCR NEGATIVE (Negative); Influenza B PCR NEGATIVE (Negative); Resp Syncy Virus RNA Qual PCR NEGATIVE (Negative); SARS COV2 PCR INHOUSE NEGATIVE (Negative)
--- NOTE | 2022-04-21 15:03 | PHA.MEDREC ---
Pharmacy Consult ? Medication Reconciliation Pharmacy has completed the medication reconciliation. Patient confirmed all medication. Reported recently her doctor to said to decrease her Wednesday dose of levothyroxine to 1/2 tablet. Ade Delacruz, ChayoD
[2022-04-21 16:27] LABS: MANUAL DIFF FLAG NO
[2022-04-21 16:28] LABS: Basophils Percent Auto 0.4 % (0-2); Eosinophils Percent Auto 0.4 % (0-4); Hematocrit 46.2 % (37.0-47.0); Hemoglobin 15.7 g/dl (12.0-16.0); Imm Gran Abs Auto 0.04 X10*3/uL (0.00-0.03); Imm Gran Pct Auto 0.4 % (0.0-0.4); Lymphocytes Absolute Auto 2.3 X10*3/uL (1.2-4.9); Lymphocytes Percent Auto 21.8 % (20-40); Mean Corpuscular Hemoglobin 31.6 pg (27.0-33.0); Mean Platelet Volume 11.1 fL (9.4-12.3); Monocytes Absolute Auto 0.9 X10*3/uL (0.1-1.2); Monocytes Percent Auto 8.4 % (2-11); Neutrophils Absolute Auto 7.3 x10*3/uL (2.0-8.3); Neutrophils Percent Auto 68.6 % (45-73); Platelet Count 237 X10*3/uL (160-400); Red Blood Count 4.97 X10*6/uL (4.20-5.50); Red Cell Distribution Width 11.7 % (11.0-16.0); White Blood Count 10.7 X10*3/uL (4.8-10.8)
[2022-04-21 16:48] LABS: Alanine Aminotransferase 48 U/L (0-31); Albumin Level 4.4 g/dL (3.5-5.0); Alkaline Phosphatase 65 U/L (39-117); Anion Gap 12 (12-20); Aspartate Amino Transferase 28 U/L (5-31); Bilirubin Total 0.7 mg/dL (0.0-1.0); Blood Urea Nitrogen 22 mg/dL (9-16); Calcium 10.1 mg/dL (8.4-10.2); Carbon Dioxide 33 mmol/L (22-29); Chloride 100 mmol/L (96-108); Creatinine Clr Calc Pharmacy 49.6; Estimated Glomerular Filt Rate > 60; Glucose Random 86 mg/dL (60-115); Potassium 3.2 mmol/L (3.3-5.1); Sodium 142 mmol/L (135-145); Total Protein 6.3 g/dL (6.5-8.0)
[2022-04-21] MEDS: Atorvastatin Calcium 40 MG TABLET PO (21:48)
[2022-04-21] MEDS: clonazePAM 0.5 MG TABLET PO (21:48)
[2022-04-21 22:32] VITALS: BP 138/68; PULSE 91; RESP 16; TEMP 36.4; O2SAT 96
--- NOTE | 2022-04-21 22:53 | PC.ADMIT ---
Pt is a 67yoF admitted [place] [facility] [place] with plan to OD on her home medication. Pt reports she had written a suicide note and was going to overdose on Ativan due to debilitating anxiety and increasing agoraphobia. Pt reports her life was perfect until 5 years ago when her dose of Lexapro was reduced by a new psych prescriber and ever since she has been unable to manage her anxiety. She has tried every med including benzos, SSRI, mood stabilizers, and atypical antipsychotics with no benefit. She reports having tried TMS with no effect, and is currently awaiting insurance approval for Ketamine treatment. She sees a therapist regularly and Judie Stanley APRN as her prescriber. She denies current SI, reports after taking alprazolam in the ED she was able to sleep and is feeling more rational. She has PMHx of HTN, high cholesterol, and hypothyroid and is adherent to medications. She signed a 3-day notice after arriving on the unit.
[2022-04-22] MEDS: Levothyroxine Sodium 125 MCG TABLET PO (06:38)
[2022-04-22 09:10] VITALS: BP 122/71; PULSE 96; RESP 18; TEMP 36.4; O2SAT 93
[2022-04-22] MEDS: Vilazodone HCL 40 MG TABLET PO (09:12)
[2022-04-22] MEDS: clonazePAM 0.5 MG TABLET PO (09:12)
[2022-04-22 10:04] LABS: Estimated Average Glucose 108 mg/dL; Hemoglobin A1c % 5.4 %
[2022-04-22 10:28] LABS: Vitamin B12 559 pg/mL (200-900)
[2022-04-22 10:33] LABS: Albumin Level 4.5 g/dL (3.5-5.0); Anion Gap 13 (12-20); Bilirubin Total 1.2 mg/dL (0.0-1.0); Blood Urea Nitrogen 17 mg/dL (9-16); Calcium 10.2 mg/dL (8.4-10.2); Carbon Dioxide 32 mmol/L (22-29); Chloride 98 mmol/L (96-108); Cholesterol 205 mg/dL; Creatinine Clr Calc Pharmacy 55.3; Estimated Glomerular Filt Rate > 60; Glucose Fasting 106 mg/dL (60-99); HDL Cholesterol 78 mg/dL; LDL Cholesterol Calculated 115 mg/dl; Potassium 3.6 mmol/L (3.3-5.1); Sodium 139 mmol/L (135-145); Thyroid Stimulating Hormone 0.37 uIU/mL (0.32-4.0); Total Protein 6.5 g/dL (6.5-8.0); Triglycerides 61 mg/dL
[2022-04-22 10:52] LABS: Alanine Aminotransferase 54 U/L (0-31); Alkaline Phosphatase 66 U/L (39-117); Aspartate Amino Transferase 31 U/L (5-31)
--- NOTE | 2022-04-22 11:12 | MHC.CLN ---
NUTRITION CONSULT FOR WEIGHT LOSS AND LOW APPETITE. PATIENT ATTRIBUTES WEIGHT LOSS/APPETITE TO ANXIETY. ATE WELL AT BREAKFAST TODAY. ADDING ENSURE BID PER CONVERSATION WITH PATIENT. PROVIDES ADDITIONAL 700 KCALS, 40 G PROTEIN. PATIENT AWARE OF SNACKS AVAILABLE ON UNIT. RD AVAILABLE NEEDED.
[2022-04-22] MEDS: clonazePAM 1 MG TABLET PO ×2 (12:46→19:59)
[2022-04-22] MEDS: Milk of Magnesia 30 ML ORAL.SUSP PO (12:46)
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
[2022-04-22 16:45] VITALS: BP 151/76; PULSE 92; RESP 16; TEMP 36.6; O2SAT 97
[2022-04-22] MEDS: amLODIPine Besylate 5 MG TABLET PO (16:48)
[2022-04-22] MEDS: Atorvastatin Calcium 40 MG TABLET PO (19:59)
[2022-04-22] MEDS: Docusate Sodium 100 MG CAPSULE PO (19:59)
[2022-04-22] MEDS: Mineral OiL enema 133 ML ENEMA PR (20:03)
[2022-04-22] MEDS: traZODone HCL 100 MG TABLET PO (22:52)
[2022-04-23 07:00] VITALS: BMI 23.6
[2022-04-23] MEDS: Levothyroxine Sodium 125 MCG TABLET PO (08:15)
[2022-04-23] MEDS: Levothyroxine Sodium 125 MCG TABLET 62.5 MCG PO (08:17)
[2022-04-23 09:25] VITALS: BP 137/61; PULSE 96; RESP 18; TEMP 36.6; O2SAT 95
[2022-04-23] MEDS: hydroCHLOROthiazide 25 MG TABLET PO (09:34)
[2022-04-23] MEDS: amLODIPine Besylate 5 MG TABLET PO (09:35)
[2022-04-23] MEDS: clonazePAM 1 MG TABLET PO ×3 (09:35→21:05)
[2022-04-23] MEDS: Vilazodone HCL 40 MG TABLET PO (09:35)
--- NOTE | 2022-04-23 14:10 | HO.HSGERICON ---
History of Present Illness Data of Consult Service Date: 04/23/22 Primary Care Provider: Cristiana Weeks MD HPI Reason for consult: ECT Clearance Pt is a 67-year-old female with a PMH significant for anxiety, depression, HTN, IBS, and hemorrhoids who is seen for a history and physical for ECT clearance. Pt denies a PMH of cerebral hemorrhage or stroke, CAD, space-occupying intracranial lesion, bleeding or otherwise unstable vascular aneurysm, seizure, TBI, and severe pulmonary condition. Pt denies any past problems with anasthesia. EKG negative for acute ischemia and prolonged QTc. Pt denies chest pain/pressure, SOB, dizziness or lightheadedness. No abdominal pain, hematachezia, melena. Review of Systems Review of Systems: No chest pain/pressure No SOB Denies hematochezia, melena, hematemesis No lightheadedness or dizziness Yes all other systems are reviewed and are negative [facility] Medical History Hyperlipidemia Hypothyroidism Tinnitus Surgical History H/O shoulder surgery History of endometrial ablation Hx of foot surgery Hx of tonsillectomy Social History Household Members: Spouse Housing: House Do you presently have visiting nurse or other home services: No Alcohol intake: unknown Patient Tobacco Use Status: Never used Tobacco Smoked in Last 30 Days: No e-Cigarette/Vaping Use: Never Used Patient Interested in Nicotine Replacement: No Patient Given Instructions on How to Stop Smoking: No Second Hand Smoke Exposure: No Use of substances other than those prescribed or required for medical reasons: No Currently Displaying Signs/Symptoms of Drug Intoxication Withdrawal: No Any prior treatment program specific to substance use: No Have you been hit, kicked, punched, or otherwise hurt by someone within the past year? If so, by whom?: No Do you feel safe in your current relationship?: Yes Is there a partner from a previous relationship who is making you feel unsafe now?: No Are you made to feel afraid or neglected: No Advance Directives: Yes Advance Directives Information Provided: Yes Advance Directives on File: No Do you have thoughts of harming others: None Do you have a plan to hurt others: No Plan Recently lost weight without trying: Yes How much weight loss: 14-23 pounds Eating poorly because of decreased appetite: Yes Nutrition screen score: 5 Nutrition Risks: No Nutritional Risk Patient : No : No Poor oral hygiene: No service: No Sexual orientation: Don't Know Meds Allergies Allergy/AdvReac Type Severity Reaction Status Date / Time hydrocortisone Allergy Hives Verified 04/14/21 14:10 Penicillins Allergy Rash Verified 04/14/21 14:10 erythromycin base AdvReac Gastrointestinal Verified 04/14/21 14:10 Upset Active Medications: Current Medications Acetaminophen (Acetaminophen 325 Mg Tablet) 650 mg PO Q6H PRN PRN Reason: Headache/Pain Mild Scale (1-3) Al Hydroxide/Mg Hydroxide (Magnesium Hydrox/Alum Hydrox 30 Ml Oral.Susp) 30 ml PO Q6H PRN PRN Reason: Heartburn/Nausea Amlodipine Besylate (Amlodipine Besylate 5 Mg Tablet) 5 mg PO DAILY [facility]; Protocol Last Admin: 04/23/22 09:35 Dose: 5 mg Atorvastatin Calcium (Atorvastatin Calcium 40 Mg Tablet) 40 mg PO BEDTIME [facility] Last Admin: 04/22/22 19:59 Dose: 40 mg Clonazepam (Clonazepam 1 Mg Tablet) 1 mg PO TID [facility] Docusate Sodium (Docusate Sodium 100 Mg Capsule) 100 mg PO BEDTIME PRN PRN Reason: Constipation Last Admin: 04/22/22 19:59 Dose: 100 mg Hydrochlorothiazide (Hydrochlorothiazide 25 Mg Tablet) 25 mg PO DAILY [facility] Last Admin: 04/23/22 09:34 Dose: 25 mg Hydroxyzine HCl (Hydroxyzine Hcl 25 Mg Tablet) 25 mg PO Q6H PRN PRN Reason: Anxiety Levothyroxine Sodium (Levothyroxine Sodium 125 Mcg Tablet) 62.5 mcg PO Sa@0600 [facility] Last Admin: 04/23/22 08:17 Dose: 62.5 mcg Levothyroxine Sodium (Levothyroxine Sodium 125 Mcg Tablet) 125 mcg PO SuMoTuWeThFr@0630 [facility] Last Admin: 04/22/22 06:38 Dose: 125 mcg Magnesium Hydroxide (Milk Of Magnesia 30 Ml Oral.Susp) 30 ml PO DAILY PRN PRN Reason: Constipation Last Admin: 04/22/22 12:46 Dose: 30 ml Trazodone HCl (Trazodone Hcl 50 Mg Tablet) 50 mg PO BEDTIME [facility] Vilazodone HCl (Vilazodone Hcl 40 Mg Tablet) 40 mg PO DAILY [facility] Last Admin: 04/23/22 09:35 Dose: 40 mg Home Medications Medication Instructions Recorded Confirmed Last Taken Type multivitamin 1 tab PO DAILY 04/11/21 04/21/22 04/21/22 History amlodipine 5 mg tablet 1 tab PO DAILY 04/21/22 04/21/22 04/21/22 History atorvastatin 40 mg tablet 1 tab PO DAILY 04/21/22 04/21/22 04/21/22 History cholecalciferol (vitamin D3) 25 25 mcg PO DAILY 04/21/22 04/21/22 Unknown History mcg (1,000 unit) tablet clonazepam 0.5 mg tablet 1 tab PO BID 04/21/22 04/21/22 04/21/22 History indapamide 1.25 mg tablet 1 tab PO QAM 04/21/22 04/21/22 04/21/22 History levothyroxine 125 mcg tablet 62.5 mcg PO SA 04/21/22 04/21/22 04/18/22 History levothyroxine 125 mcg tablet 125 mcg PO SUMOTUWETHFR 04/21/22 04/21/22 04/21/22 History Results Labs CBC and Chem 7: 04/21/22 16:18 04/22/22 08:57 Assessment and Plan (1) Major depressive disorder, recurrent severe without psychotic features: Status: Acute (2) Generalized anxiety disorder: Status: Acute Plan Pt is a 67-year-old female with a PMH significant for anxiety, depression, HTN, IBS with constipation, and hemorrhoids who is seen for a history and physical for ECT clearance. Pt denies a PMH of cerebral hemorrhage or stroke, CAD, space-occupying intracranial lesion, bleeding or otherwise unstable vascular aneurysm, seizure, TBI, and severe pulmonary condition. Pt denies any past problems with anasthesia. EKG negative for acute ischemia and prolonged QTc. Pt denies chest pain/pressure, SOB, dizziness or lightheadedness. No abdominal pain, hematachezia, melena. There are no obvious contraindications to the planned procedure. Thank you for allowing me to participate in the care of this patient. Please contact me with any additional questions. Time Spent With Patient Time: Total time managing care of this patient today ____ minutes. Physical Exam Vital Signs: Last Vital Signs Temp 97.8 F 04/23/22 09:25 Pulse 96 04/23/22 09:25 Resp 18 04/23/22 09:25 BP 137/61 04/23/22 09:25 Pulse Ox 95 04/23/22 09:25 O2 Del Method 04/23/22 09:25 BMI result Body Mass Index 21.9 General: AOx3, no acute distress Resp: CTA bilaterally CVS: S1, S2, RRR GI: +BS, NT, no distention Skin: No rash Neuro: Motor grossly intact Psych: Appears nervous, but cooperative Neuro Cranial nerves: Yes CN's II-XII intact bilaterally
--- NOTE | 2022-04-23 14:44 | P.PNPSI_ITS ---
Subjective Subjective Date of Service: 04/23/22 Reason For Visit: SEC 12,SI W/PLAN,SEEN IN COMM BY N Interim History: calm, cooperative. appears less anxious than yesterday, not perseverative. awaiting discussion with alexis re ECT. reports her anxiety is slightly lessened and she has not felt sedated by klonopin. slept OK on traz but felt strange this morning, agrees to lower dose of traz for tonight. agreeable to increase klonopin from 1 BID to 1 TID for now. per staff, 9/10 depression. 3- day on file. fearful but safe. slept well per staff observation. Mental Status Exam Mental Status Exam Narrative: adequately dressed and groomed. no PMA/PMR. cooperative. speech quick but not verbose. soft, perhaps a bit flat. thoughts anxious but linear. affect constricted, hyper-intense, non-labile. mood anxious and depressed. no SI/HI/AVH expressed. Diagnostics Vital Signs (24Hr): Vital Signs - 24 hr 04/22/22 16:45 04/23/22 09:25 Temperature 97.8 F 97.8 F Pulse Rate 92 96 Respiratory Rate 16 18 Blood Pressure 151/76 H 137/61 Pulse Oximetry 97 95 Oxygen Delivery Method Room Air BMI result Body Mass Index 21.9 Labs Results: 04/21/22 16:18 04/22/22 08:57 Labs: Laboratory Results - last 48 hr 04/21/22 04/21/22 04/22/22 16:18 16:18 08:57 WBC 10.7 RBC 4.97 Hgb 15.7 Hct 46.2 MCV 93.0 MCH 31.6 MCHC 34.0 RDW 11.7 Plt Count 237 MPV 11.1 Immature Gran % (Auto) 0.4 Neut % (Auto) 68.6 Lymph % (Auto) 21.8 [place] % (Auto) 8.4 Eos % (Auto) 0.4 Baso % (Auto) 0.4 Lymph # (Auto) 2.3 [place] # (Auto) 0.9 Eos # (Auto) 0.0 Baso # (Auto) 0.0 Abs Immat Gran (auto) 0.04 H Absolute Neuts (auto) 7.3 Absolute Nucleated RBC 0.000 Nucleated RBC % (auto) 0.0 Sodium 142 139 Potassium 3.2 L D 3.6 Chloride 100 98 Carbon Dioxide 33 H 32 H Anion Gap 12 13 BUN 22 H 17 H Creatinine 0.87 0.78 Estim Creat Clear Calc 49.6 55.3 Estimated GFR > 60 > 60 Random Glucose 86 Fasting Glucose 106 H Estimat Average Glucose Hemoglobin A1c % Calcium 10.1 10.2 Total Bilirubin 0.7 1.2 H AST 28 31 D ALT 48 H 54 H Alkaline Phosphatase 65 66 Total Protein 6.3 L 6.5 Albumin 4.4 4.5 Triglycerides 61 Cholesterol 205 LDL Cholesterol, Calc 115 HDL Cholesterol 78 Vitamin B12 TSH 0.37 04/22/22 04/22/22 08:57 08:57 WBC RBC Hgb Hct MCV MCH MCHC RDW Plt Count MPV Immature Gran % (Auto) Neut % (Auto) Lymph % (Auto) [place] % (Auto) Eos % (Auto) Baso % (Auto) Lymph # (Auto) [place] # (Auto) Eos # (Auto) Baso # (Auto) Abs Immat Gran (auto) Absolute Neuts (auto) Absolute Nucleated RBC Nucleated RBC % (auto) Sodium Potassium Chloride Carbon Dioxide Anion Gap BUN Creatinine Estim Creat Clear Calc Estimated GFR Random Glucose Fasting Glucose Estimat Average Glucose 108 Hemoglobin A1c % 5.4 Calcium Total Bilirubin AST ALT Alkaline Phosphatase Total Protein Albumin Triglycerides Cholesterol LDL Cholesterol, Calc HDL Cholesterol Vitamin B12 559 TSH Medications Medications Current Medications Acetaminophen (Acetaminophen 325 Mg Tablet) 650 mg PO Q6H PRN PRN Reason: Headache/Pain Mild Scale (1-3) Al Hydroxide/Mg Hydroxide (Magnesium Hydrox/Alum Hydrox 30 Ml Oral.Susp) 30 ml PO Q6H PRN PRN Reason: Heartburn/Nausea Amlodipine Besylate (Amlodipine Besylate 5 Mg Tablet) 5 mg PO DAILY [facility]; Protocol Last Admin: 04/23/22 09:35 Dose: 5 mg Atorvastatin Calcium (Atorvastatin Calcium 40 Mg Tablet) 40 mg PO BEDTIME [facility] Last Admin: 04/22/22 19:59 Dose: 40 mg Clonazepam (Clonazepam 1 Mg Tablet) 1 mg PO TID [facility] Last Admin: 04/23/22 14:35 Dose: 1 mg Docusate Sodium (Docusate Sodium 100 Mg Capsule) 100 mg PO BEDTIME PRN PRN Reason: Constipation Last Admin: 04/22/22 19:59 Dose: 100 mg Hydrochlorothiazide (Hydrochlorothiazide 25 Mg Tablet) 25 mg PO DAILY [facility] Last Admin: 04/23/22 09:34 Dose: 25 mg Hydroxyzine HCl (Hydroxyzine Hcl 25 Mg Tablet) 25 mg PO Q6H PRN PRN Reason: Anxiety Levothyroxine Sodium (Levothyroxine Sodium 125 Mcg Tablet) 62.5 mcg PO Sa@0600 [facility] Last Admin: 04/23/22 08:17 Dose: 62.5 mcg Levothyroxine Sodium (Levothyroxine Sodium 125 Mcg Tablet) 125 mcg PO SuMoTuWeThFr@0630 [facility] Last Admin: 04/23/22 08:15 Dose: 125 mcg Magnesium Hydroxide (Milk Of Magnesia 30 Ml Oral.Susp) 30 ml PO DAILY PRN PRN Reason: Constipation Last Admin: 04/22/22 12:46 Dose: 30 ml Trazodone HCl (Trazodone Hcl 50 Mg Tablet) 50 mg PO BEDTIME [facility] Vilazodone HCl (Vilazodone Hcl 40 Mg Tablet) 40 mg PO DAILY [facility] Last Admin: 04/23/22 09:35 Dose: 40 mg Allergies Allergies Allergy/AdvReac Type Severity Reaction Status Date / Time hydrocortisone Allergy Hives Verified 04/14/21 14:10 Penicillins Allergy Rash Verified 04/14/21 14:10 erythromycin base AdvReac Gastrointestinal Verified 04/14/21 14:10 Upset Assessment & Plan Assessment & Plan (1) Major depressive disorder, recurrent severe without psychotic features: Status: Acute Code(s): F33.2 - Major depressive disorder, recurrent severe without psychotic features (2) Generalized anxiety disorder: Status: Acute Code(s): F41.1 - Generalized anxiety disorder Plan 04/22: continue outpt meds. collateral collected from avi outpt prescriber, who recommends ECT at this point. ECT discussed with alexis, pt referred to speak with alexis on the Tx option. ECT pt education presented to pt. TSH WNL. klonopin increased from 0.5 BID to 1 BID. 04/23: medical clearance for ECT completed. klonopin increased from 1 BID to 1 TID. ECT scheduled for wednesday. pt has yet to rescind her 3-day notice, which matures tomorrow. I spent ___35___ minutes with the patient and/or on the patient floor today, greater than?50% of which was spent counseling/coordinating care. Reason for contiued inpatient stay Substantial Risk for: harm to self, inability to function and rapid decompensation Time Spent With Patient Time: Total time managing care of this patient today ____ minutes.
[2022-04-23 17:11] VITALS: BP 165/77; PULSE 89; RESP 18; TEMP 36.1; O2SAT 99
[2022-04-23 17:12] VITALS: BP 153/70; PULSE 94; RESP 18; O2SAT 99
--- NOTE | 2022-04-23 17:17 | PC.NURSE ---
Patient reports feeling 'woozy' after receiving klonopin- states that she had been taking klonopin at home but that this dosage is higher. orthostatic vitals completed, patient states she feels safe to ambulate, gait steady. No other concerns reported, patient alert, oriented x3.
[2022-04-23 20:23] VITALS: BP 134/70; PULSE 85; RESP 16; TEMP 36.4; O2SAT 99
[2022-04-23] MEDS: Docusate Sodium 100 MG CAPSULE PO (21:04)
[2022-04-23] MEDS: Atorvastatin Calcium 40 MG TABLET PO (21:04)
[2022-04-23] MEDS: hydrOXYzine HCL 25 MG TABLET PO (22:22)
[2022-04-24] MEDS: Levothyroxine Sodium 125 MCG TABLET PO (08:30)
--- NOTE | 2022-04-24 08:40 | PC.NURSE ---
Pt. was seen by OT for administration of a MOCA due to concerns about her cognitive status. Pt. received a score of 24/30, indicating a mild cognitive impairment. Pt. appeared very anxious during exam and stated that she felt foggy due to recently waking. Pt. was unable to copy the cube correctly, left out half of the numbers on her clock, and identified a lion as an elephant. Pt. named 3/5 correct numbers on the serial sevens, and remembered 3/5 words in the delayed recall.
[2022-04-24 09:00] VITALS: BP 125/68; PULSE 103; RESP 18; TEMP 36.1; O2SAT 94
[2022-04-24] MEDS: amLODIPine Besylate 5 MG TABLET PO (09:17)
[2022-04-24] MEDS: clonazePAM 1 MG TABLET PO ×3 (09:17→21:09)
[2022-04-24] MEDS: Vilazodone HCL 40 MG TABLET PO (09:18)
[2022-04-24] MEDS: hydroCHLOROthiazide 25 MG TABLET PO (09:18)
--- NOTE | 2022-04-24 09:28 | PC.NURSE ---
Patient at MRI
--- NOTE | 2022-04-24 10:01 | PC.NURSE ---
Patient returned from MRI, no concerns reported.
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
--- NOTE | 2022-04-24 12:45 | HO.PSYCHPN ---
Subjective Subjective Date of Service: 04/24/22 Reason For Visit: SEC 12,SI W/PLAN,SEEN IN COMM BY Johnathon Interim History: calm, cooperative. c/o unremitting anxiety. review results of brain MRI, which make pt somewhat more anxious. planning for ECT wednesday, not necessarily bcse she wants to but bcse she feels she has no other choice. agrees to trial of trazodone 50 tonight, to be titrated or decreased as indicated over the weekend. denies sedation or wooziness throughout the day. per staff, retracted 3-day notice. anx 9, dep 4. no SI/HI. insomnia. attending groups. eating well. c/o feeling foggy and woozy. Mental Status Exam Mental Status Exam Narrative: adequately dressed and groomed. slight PMR. cooperative. speech nml rate, decr amount. soft, perhaps a bit flat. thoughts anxious but linear. affect constricted, normo-intense, non-labile. mood anxious. no SI/HI/AVH expressed. Diagnostics Vital Signs (24Hr): Vital Signs - 24 hr 04/23/22 17:11 04/23/22 17:12 04/23/22 20:23 Temperature 97.0 F 97.5 F Pulse Rate 89 94 85 Respiratory Rate 18 18 16 Blood Pressure 165/77 H 153/70 H 134/70 Pulse Oximetry 99 99 99 Oxygen Delivery Method Room Air Room Air 04/24/22 09:00 Temperature 97.0 F Pulse Rate 103 H Respiratory Rate 18 Blood Pressure 125/68 Pulse Oximetry 94 Oxygen Delivery Method Room Air BMI result Body Mass Index 21.9 Labs Results: 04/21/22 16:18 04/22/22 08:57 Imaging Radiology Impressions: ITS Impressions Brain MRI 04/24/22 09:49 IMPRESSION: There are a few scattered nonspecific signal changes within the periventricular white matter. Otherwise unremarkable examination. No evidence of acute territorial infarct or hemorrhage. No intracranial mass effect or hydrocephalus. Medications Medications Current Medications Acetaminophen (Acetaminophen 325 Mg Tablet) 650 mg PO Q6H PRN PRN Reason: Headache/Pain Mild Scale (1-3) Al Hydroxide/Mg Hydroxide (Magnesium Hydrox/Alum Hydrox 30 Ml Oral.Susp) 30 ml PO Q6H PRN PRN Reason: Heartburn/Nausea Amlodipine Besylate (Amlodipine Besylate 5 Mg Tablet) 5 mg PO DAILY [facility]; Protocol Last Admin: 04/24/22 09:17 Dose: 5 mg Atorvastatin Calcium (Atorvastatin Calcium 40 Mg Tablet) 40 mg PO BEDTIME [facility] Last Admin: 04/23/22 21:04 Dose: 40 mg Clonazepam (Clonazepam 1 Mg Tablet) 1 mg PO TID [facility] Last Admin: 04/24/22 09:17 Dose: 1 mg Docusate Sodium (Docusate Sodium 100 Mg Capsule) 100 mg PO BEDTIME PRN PRN Reason: Constipation Last Admin: 04/23/22 21:04 Dose: 100 mg Hydrochlorothiazide (Hydrochlorothiazide 25 Mg Tablet) 25 mg PO DAILY [facility] Last Admin: 04/24/22 09:18 Dose: 25 mg Hydroxyzine HCl (Hydroxyzine Hcl 25 Mg Tablet) 25 mg PO Q6H PRN PRN Reason: Anxiety Last Admin: 04/23/22 22:22 Dose: 25 mg Levothyroxine Sodium (Levothyroxine Sodium 125 Mcg Tablet) 62.5 mcg PO Sa@0600 [facility] Last Admin: 04/23/22 08:17 Dose: 62.5 mcg Levothyroxine Sodium (Levothyroxine Sodium 125 Mcg Tablet) 125 mcg PO SuMoTuWeThFr@0630 [facility] Last Admin: 04/24/22 08:30 Dose: 125 mcg Magnesium Hydroxide (Milk Of Magnesia 30 Ml Oral.Susp) 30 ml PO DAILY PRN PRN Reason: Constipation Last Admin: 04/22/22 12:46 Dose: 30 ml Trazodone HCl (Trazodone Hcl 50 Mg Tablet) 50 mg PO BEDTIME [facility] Last Admin: 04/23/22 21:07 Dose: Not Given Vilazodone HCl (Vilazodone Hcl 40 Mg Tablet) 40 mg PO DAILY [facility] Last Admin: 04/24/22 09:18 Dose: 40 mg Allergies Allergies Allergy/AdvReac Type Severity Reaction Status Date / Time hydrocortisone Allergy Hives Verified 04/14/21 14:10 Penicillins Allergy Rash Verified 04/14/21 14:10 erythromycin base AdvReac Gastrointestinal Verified 04/14/21 14:10 Upset Assessment & Plan Assessment & Plan (1) Major depressive disorder, recurrent severe without psychotic features: Status: Acute Code(s): F33.2 - Major depressive disorder, recurrent severe without psychotic features (2) Generalized anxiety disorder: Status: Acute Code(s): F41.1 - Generalized anxiety disorder Plan 04/22: continue outpt meds. collateral collected from avi, outpt prescriber, who recommends ECT at this point. ECT discussed with alexis, pt referred to speak with alexis on the Tx option. ECT pt education presented to pt. TSH WNL. klonopin increased from 0.5 BID to 1 BID. 04/23: medical clearance for ECT completed. klonopin increased from 1 BID to 1 TID. ECT scheduled for wednesday. pt has yet to rescind her 3-day notice, which matures tomorrow. 04/24: 3-day notice rescinded. no medication changes today. ECT wednesday. I spent ___25___ minutes with the patient and/or on the patient floor today, greater than?50% of which was spent counseling/coordinating care. Reason for contiued inpatient stay Substantial Risk for: harm to self, inability to function and rapid decompensation Time Spent With Patient Time: Total time managing care of this patient today ____ minutes.
[2022-04-24 18:00] VITALS: BP 150/67; PULSE 94; RESP 18; TEMP 36.6; O2SAT 98
[2022-04-24] MEDS: traZODone HCL 50 MG TABLET PO (21:09)
[2022-04-24] MEDS: Atorvastatin Calcium 40 MG TABLET PO (21:09)
[2022-04-24] MEDS: Docusate Sodium 100 MG CAPSULE PO (21:30)
[2022-04-25] MEDS: Levothyroxine Sodium 125 MCG TABLET 62.5 MCG PO (06:53)
[2022-04-25 08:52] VITALS: BP 120/60; PULSE 93; RESP 19; TEMP 36.7; O2SAT 95
[2022-04-25] MEDS: hydroCHLOROthiazide 25 MG TABLET PO (08:53)
[2022-04-25] MEDS: amLODIPine Besylate 5 MG TABLET PO (08:54)
[2022-04-25] MEDS: clonazePAM 1 MG TABLET PO ×3 (08:54→21:03)
[2022-04-25] MEDS: Vilazodone HCL 40 MG TABLET PO (08:54)
[2022-04-25] MEDS: Milk of Magnesia 30 ML ORAL.SUSP PO (16:02)
--- NOTE | 2022-04-25 17:18 | P.PNPSI_ITS ---
Subjective Subjective Date of Service: 04/25/22 Reason For Visit: SEC 12,SI W/PLAN,SEEN IN COMM BY FAITH Interim History: calm, cooperative. started ECT . not sure its helped; slight NOGUEIRA, still anxious, no other complaints or requests. per staff, pleasant, sleeping well. taking meds, eating well. strong anxiety. attending groups, visible. no SI/HI/AVH. Medication Compliance: Yes Side effects from medications: No Attending Groups: No Review of Systems Acute medical concerns: No Review of Systems Review of Systems No chest pain/pressure No SOB Denies hematochezia, melena, hematemesis No lightheadedness or dizziness Yes all other systems are reviewed and are negative Constitutional: Reports no additional constitutional complaints Cardiovascular: Reports no additional cardiovascular complaints Reports behavioral changes Psychiatric: Reports anxiety and Reports behavioral changes Mental Status Exam Mental Status Exam Narrative: adequately dressed and groomed. slight PMR. cooperative. speech nml rate, decr amount. soft, perhaps a bit flat. thoughts anxious but linear. affect more flexible, normo-intense, non-labile. mood nervous. no SI/HI/AVH. Patient Appearance: Well Grooomed Patient Orientation: Person, Place, Time and Situation Level of Consciousness: Awake and Appropriate Patient Behavior: Appropriate, Cooperative and Anxious Mood Description: Depressed, Anxious, Blunted and Apprehensive Affect Description: Appropriate and Constricted Patient Cognition Impaired: No Ability to Follow Directions: Good Speech Pattern: Clear Memory Description: Intact Diagnostics Vital Signs (24Hr): Vital Signs - 24 hr 04/24/22 18:00 04/25/22 08:52 Temperature 98 F 98.0 F Pulse Rate 94 93 Respiratory Rate 18 19 Blood Pressure 150/67 H 120/60 Pulse Oximetry 98 95 Oxygen Delivery Method Room Air Room Air BMI result Body Mass Index 23.6 Labs 04/21/22 16:18 04/22/22 08:57 Imaging Radiology Impressions: ITS Impressions Brain MRI 04/24/22 09:49 IMPRESSION: There are a few scattered nonspecific signal changes within the periventricular white matter. Otherwise unremarkable examination. No evidence of acute territorial infarct or hemorrhage. No intracranial mass effect or hydrocephalus. Medications Medications Current Medications Acetaminophen (Acetaminophen 325 Mg Tablet) 650 mg PO Q6H PRN PRN Reason: Headache/Pain Mild Scale (1-3) Al Hydroxide/Mg Hydroxide (Magnesium Hydrox/Alum Hydrox 30 Ml Oral.Susp) 30 ml PO Q6H PRN PRN Reason: Heartburn/Nausea Amlodipine Besylate (Amlodipine Besylate 5 Mg Tablet) 5 mg PO DAILY [facility]; Protocol Last Admin: 04/25/22 08:54 Dose: 5 mg Atorvastatin Calcium (Atorvastatin Calcium 40 Mg Tablet) 40 mg PO BEDTIME [facility] Last Admin: 04/24/22 21:09 Dose: 40 mg Clonazepam (Clonazepam 1 Mg Tablet) 1 mg PO TID [facility] Last Admin: 04/25/22 14:35 Dose: 1 mg Docusate Sodium (Docusate Sodium 100 Mg Capsule) 100 mg PO BEDTIME PRN PRN Reason: Constipation Last Admin: 04/24/22 21:30 Dose: 100 mg Hydrochlorothiazide (Hydrochlorothiazide 25 Mg Tablet) 25 mg PO DAILY [facility] Last Admin: 04/25/22 08:53 Dose: 25 mg Hydroxyzine HCl (Hydroxyzine Hcl 25 Mg Tablet) 25 mg PO Q6H PRN PRN Reason: Anxiety Last Admin: 04/23/22 22:22 Dose: 25 mg Levothyroxine Sodium (Levothyroxine Sodium 125 Mcg Tablet) 62.5 mcg PO Sa@0600 [facility] Last Admin: 04/25/22 06:53 Dose: 62.5 mcg Levothyroxine Sodium (Levothyroxine Sodium 125 Mcg Tablet) 125 mcg PO SuMoTuWeThFr@0630 [facility] Last Admin: 04/24/22 08:30 Dose: 125 mcg Magnesium Hydroxide (Milk Of Magnesia 30 Ml Oral.Susp) 30 ml PO DAILY PRN PRN Reason: Constipation Last Admin: 04/25/22 16:02 Dose: 30 ml Trazodone HCl (Trazodone Hcl 25 Mg Halftab) 25 mg PO BEDTIME PRN PRN Reason: Insomnia Vilazodone HCl (Vilazodone Hcl 40 Mg Tablet) 40 mg PO DAILY [facility] Last Admin: 04/25/22 08:54 Dose: 40 mg Allergies Allergies Allergy/AdvReac Type Severity Reaction Status Date / Time hydrocortisone Allergy Hives Verified 04/14/21 14:10 Penicillins Allergy Rash Verified 04/14/21 14:10 erythromycin base AdvReac Gastrointestinal Verified 04/14/21 14:10 Upset Assessment & Plan Assessment & Plan (1) Major depressive disorder, recurrent severe without psychotic features: Status: Acute Code(s): F33.2 - Major depressive disorder, recurrent severe without psychotic features (2) Generalized anxiety disorder: Status: Acute Code(s): F41.1 - Generalized anxiety disorder Plan 04/22: continue outpt meds. collateral collected from avi outpt prescriber, who recommends ECT at this point. ECT discussed with alexis, pt referred to speak with alexis on the Tx option. ECT pt education presented to pt. TSH WNL. klonopin increased from 0.5 BID to 1 BID. 04/23: medical clearance for ECT completed. klonopin increased from 1 BID to 1 TID. ECT scheduled for wednesday. pt has yet to rescind her 3-day notice, which matures tomorrow. 04/24: 3-day notice rescinded. no medication changes today. ECT wednesday. 04/25 continue treatment plan I spent minutes with the patient and/or on the patient floor today, greater than?50% of which was spent counseling/coordinating care. Reason for contiued inpatient stay Substantial Risk for: harm to self, inability to function and med/psych decompensation Time Spent With Patient Time: Total time managing care of this patient today ____ minutes.
[2022-04-25 20:00] VITALS: BP 137/73; PULSE 90; RESP 16; TEMP 36.6; O2SAT 98
[2022-04-25] MEDS: Atorvastatin Calcium 40 MG TABLET PO (21:03)
[2022-04-25] MEDS: Docusate Sodium 100 MG CAPSULE PO (21:03)
[2022-04-25] MEDS: traZODone HCL 25 MG HALFTAB PO (21:15)
[2022-04-26] MEDS: Levothyroxine Sodium 125 MCG TABLET PO (06:47)
[2022-04-26 08:21] VITALS: BP 134/61; PULSE 86; RESP 18; TEMP 36.3; O2SAT 95
[2022-04-26] MEDS: amLODIPine Besylate 5 MG TABLET PO (08:31)
[2022-04-26] MEDS: Vilazodone HCL 40 MG TABLET PO (08:32)
[2022-04-26] MEDS: hydroCHLOROthiazide 25 MG TABLET PO (08:32)
[2022-04-26] MEDS: clonazePAM 1 MG TABLET PO (08:32)
--- NOTE | 2022-04-26 10:35 | P.PNPSI_ITS ---
Subjective Subjective Date of Service: 04/26/22 Reason For Visit: SEC 12,SI W/PLAN,SEEN IN COMM BY FAITH Interim History: reports she's feeling overly medicated with increase in Clonazepam and asks for it to be lowered back to 0.5mg TID; discussed ECT tomorrow and her main worry is what if it does not work. Mental Status Exam Mental Status Exam Narrative: adequately dressed and groomed. slight PMR. cooperative. speech nml rate, decr amount. soft, perhaps a bit flat. thoughts anxious but linear. affect constricted, normo-intense, non-labile. mood anxious. no SI/HI/AVH expressed. Diagnostics Vital Signs (24Hr): Vital Signs - 24 hr 04/25/22 20:00 04/26/22 08:21 Temperature 97.9 F 97.4 F Pulse Rate 90 86 Respiratory Rate 16 18 Blood Pressure 137/73 134/61 Pulse Oximetry 98 95 Oxygen Delivery Method Room Air Room Air BMI result Body Mass Index 23.6 Labs Results: 04/21/22 16:18 04/22/22 08:57 Imaging Radiology Impressions: ITS Impressions Brain MRI 04/24/22 09:49 IMPRESSION: There are a few scattered nonspecific signal changes within the periventricular white matter. Otherwise unremarkable examination. No evidence of acute territorial infarct or hemorrhage. No intracranial mass effect or hydrocephalus. Medications Medications Current Medications Acetaminophen (Acetaminophen 325 Mg Tablet) 650 mg PO Q6H PRN PRN Reason: Headache/Pain Mild Scale (1-3) Al Hydroxide/Mg Hydroxide (Magnesium Hydrox/Alum Hydrox 30 Ml Oral.Susp) 30 ml PO Q6H PRN PRN Reason: Heartburn/Nausea Amlodipine Besylate (Amlodipine Besylate 5 Mg Tablet) 5 mg PO DAILY [facility]; Protocol Last Admin: 04/26/22 08:31 Dose: 5 mg Atorvastatin Calcium (Atorvastatin Calcium 40 Mg Tablet) 40 mg PO BEDTIME [facility] Last Admin: 04/25/22 21:03 Dose: 40 mg Clonazepam (Clonazepam 1 Mg Tablet) 1 mg PO TID [facility] Last Admin: 04/26/22 08:32 Dose: 1 mg Docusate Sodium (Docusate Sodium 100 Mg Capsule) 100 mg PO BEDTIME PRN PRN Reason: Constipation Last Admin: 04/25/22 21:03 Dose: 100 mg Hydrochlorothiazide (Hydrochlorothiazide 25 Mg Tablet) 25 mg PO DAILY [facility] Last Admin: 04/26/22 08:32 Dose: 25 mg Hydroxyzine HCl (Hydroxyzine Hcl 25 Mg Tablet) 25 mg PO Q6H PRN PRN Reason: Anxiety Last Admin: 04/23/22 22:22 Dose: 25 mg Levothyroxine Sodium (Levothyroxine Sodium 125 Mcg Tablet) 62.5 mcg PO Sa@0600 [facility] Last Admin: 04/25/22 06:53 Dose: 62.5 mcg Levothyroxine Sodium (Levothyroxine Sodium 125 Mcg Tablet) 125 mcg PO SuMoTuWeThFr@0630 [facility] Last Admin: 04/26/22 06:47 Dose: 125 mcg Magnesium Hydroxide (Milk Of Magnesia 30 Ml Oral.Susp) 30 ml PO DAILY PRN PRN Reason: Constipation Last Admin: 04/25/22 16:02 Dose: 30 ml Trazodone HCl (Trazodone Hcl 25 Mg Halftab) 25 mg PO BEDTIME PRN PRN Reason: Insomnia Last Admin: 04/25/22 21:15 Dose: 25 mg Vilazodone HCl (Vilazodone Hcl 40 Mg Tablet) 40 mg PO DAILY [facility] Last Admin: 04/26/22 08:32 Dose: 40 mg Allergies Allergies Allergy/AdvReac Type Severity Reaction Status Date / Time hydrocortisone Allergy Hives Verified 04/14/21 14:10 Penicillins Allergy Rash Verified 04/14/21 14:10 erythromycin base AdvReac Gastrointestinal Verified 04/14/21 14:10 Upset Assessment & Plan Assessment & Plan (1) Major depressive disorder, recurrent severe without psychotic features: Status: Acute Code(s): F33.2 - Major depressive disorder, recurrent severe without psychotic features (2) Generalized anxiety disorder: Status: Acute Code(s): F41.1 - Generalized anxiety disorder Plan 04/22: continue outpt meds. collateral collected from [facility] prescriber, who recommends ECT at this point. ECT discussed with alexis, pt referred to speak with alexis on the Tx option. ECT pt education presented to pt. TSH WNL. klonopin increased from 0.5 BID to 1 BID. 04/23: medical clearance for ECT completed. klonopin increased from 1 BID to 1 TID. ECT scheduled for wednesday. pt has yet to rescind her 3-day notice, which matures tomorrow. 04/24: 3-day notice rescinded. no medication changes today. ECT wednesday. 04/25 lowered Clonazepam to 0.5mg TID (back to home dose, down from 1mg TID); she will try not take at bedtime for ECT tomorrow -ECT 04/27/22 NPO after midnight I spent minutes with the patient and/or on the patient floor today, greater than?50% of which was spent counseling/coordinating care. Patient educated on: diagnosis, medication risk/benefits and ECT Informed Consent: understands Reason for contiued inpatient stay Substantial Risk for: rapid decompensation Time Spent With Patient Time: Total time managing care of this patient today ____ minutes.
[2022-04-26] MEDS: clonazePAM 0.5 MG TABLET PO (14:23)
[2022-04-26 18:00] VITALS: BP 122/65; PULSE 94; RESP 17; TEMP 36.8; O2SAT 96
[2022-04-26] MEDS: Atorvastatin Calcium 40 MG TABLET PO (20:45)
[2022-04-26] MEDS: traZODone HCL 25 MG HALFTAB PO (20:45)
[2022-04-26] MEDS: Docusate Sodium 100 MG CAPSULE PO (20:45)
[2022-04-26] MEDS: Acetaminophen 325 MG TABLET 650 MG PO (22:07)
[2022-04-27] VITALS (10 sets, daily range): BP systolic 97–145; BP diastolic 52–74; PULSE 72–107; RESP 13–22; TEMP 36.6–37.5; O2SAT 92–99
--- NOTE | 2022-04-27 07:12 | P.CONAN_ITS ---
HPI - Anesthesia Eval Consult details Narrative: For ECT [facility] Active Problems Active Problems: All Active Problems (Updated 04/21/22 @ 13:53 by Brad Benoit MD) Major depressive disorder, recurrent severe without psychotic features (Acute) Generalized anxiety disorder (Acute) Major depression, recurrent (Acute) Past Medical History Medical History Hyperlipidemia Hypothyroidism Tinnitus Family History Family history of problems with anesthesia: No Surgical History Surgical History H/O shoulder surgery History of endometrial ablation Hx of foot surgery Hx of tonsillectomy History of Problems with Anesthesia: No Social History Social History Household Members: Spouse Housing: House Do you presently have visiting nurse or other home services: No Alcohol intake: unknown Patient Tobacco Use Status: Never used Tobacco Smoked in Last 30 Days: No e-Cigarette/Vaping Use: Never Used Patient Interested in Nicotine Replacement: No Patient Given Instructions on How to Stop Smoking: No Second Hand Smoke Exposure: No Use of substances other than those prescribed or required for medical reasons: No Currently Displaying Signs/Symptoms of Drug Intoxication Withdrawal: No Any prior treatment program specific to substance use: No Have you been hit, kicked, punched, or otherwise hurt by someone within the past year? If so, by whom?: No Do you feel safe in your current relationship?: Yes Is there a partner from a previous relationship who is making you feel unsafe now?: No Are you made to feel afraid or neglected: No Advance Directives: Yes Advance Directives Information Provided: Yes Advance Directives on File: No Do you have thoughts of harming others: None Do you have a plan to hurt others: No Plan Recently lost weight without trying: Yes How much weight loss: 14-23 pounds Eating poorly because of decreased appetite: Yes Nutrition screen score: 5 Nutrition Risks: No Nutritional Risk Patient : No : No Poor oral hygiene: No service: No Sexual orientation: Don't Know Meds Allergies Allergy/AdvReac Type Severity Reaction Status Date / Time hydrocortisone Allergy Hives Verified 04/14/21 14:10 Penicillins Allergy Rash Verified 04/14/21 14:10 erythromycin base AdvReac Gastrointestinal Verified 04/14/21 14:10 Upset Active Medications: Current Medications Acetaminophen (Acetaminophen 325 Mg Tablet) 650 mg PO Q6H PRN PRN Reason: Headache/Pain Mild Scale (1-3) Last Admin: 04/26/22 22:07 Dose: 650 mg Al Hydroxide/Mg Hydroxide (Magnesium Hydrox/Alum Hydrox 30 Ml Oral.Susp) 30 ml PO Q6H PRN PRN Reason: Heartburn/Nausea Amlodipine Besylate (Amlodipine Besylate 5 Mg Tablet) 5 mg PO DAILY REPLACED BY [facility]; Protocol Last Admin: 04/26/22 08:31 Dose: 5 mg Atorvastatin Calcium (Atorvastatin Calcium 40 Mg Tablet) 40 mg PO BEDTIME REPLACED BY [facility] Last Admin: 04/26/22 20:45 Dose: 40 mg Clonazepam (Clonazepam 0.5 Mg Tablet) 0.5 mg PO TID REPLACED BY [facility] Last Admin: 04/26/22 20:46 Dose: Not Given Docusate Sodium (Docusate Sodium 100 Mg Capsule) 100 mg PO BEDTIME REPLACED BY [facility] Last Admin: 04/26/22 20:45 Dose: 100 mg Hydrochlorothiazide (Hydrochlorothiazide 25 Mg Tablet) 25 mg PO DAILY REPLACED BY [facility] Last Admin: 04/26/22 08:32 Dose: 25 mg Hydroxyzine HCl (Hydroxyzine Hcl 25 Mg Tablet) 25 mg PO Q6H PRN PRN Reason: Anxiety Last Admin: 04/23/22 22:22 Dose: 25 mg Levothyroxine Sodium (Levothyroxine Sodium 125 Mcg Tablet) 62.5 mcg PO Sa@0600 REPLACED BY [facility] Last Admin: 04/25/22 06:53 Dose: 62.5 mcg Levothyroxine Sodium (Levothyroxine Sodium 125 Mcg Tablet) 125 mcg PO SuMoTuWeThFr@0630 REPLACED BY [facility] Last Admin: 04/26/22 06:47 Dose: 125 mcg Magnesium Hydroxide (Milk Of Magnesia 30 Ml Oral.Susp) 30 ml PO DAILY PRN PRN Reason: Constipation Last Admin: 04/25/22 16:02 Dose: 30 ml Trazodone HCl (Trazodone Hcl 25 Mg Halftab) 25 mg PO BEDTIME PRN PRN Reason: Insomnia Last Admin: 04/26/22 20:45 Dose: 25 mg Vilazodone HCl (Vilazodone Hcl 40 Mg Tablet) 40 mg PO DAILY REPLACED BY [facility] Last Admin: 04/26/22 08:32 Dose: 40 mg Home Medications Medication Instructions Recorded Confirmed Last Taken Type multivitamin 1 tab PO DAILY 04/11/21 04/21/22 04/21/22 History amlodipine 5 mg tablet 1 tab PO DAILY 04/21/22 04/21/22 04/21/22 History atorvastatin 40 mg tablet 1 tab PO DAILY 04/21/22 04/21/22 04/21/22 History cholecalciferol (vitamin D3) 25 25 mcg PO DAILY 04/21/22 04/21/22 Unknown History mcg (1,000 unit) tablet clonazepam 0.5 mg tablet 1 tab PO BID 04/21/22 04/21/22 04/21/22 History indapamide 1.25 mg tablet 1 tab PO QAM 04/21/22 04/21/22 04/21/22 History levothyroxine 125 mcg tablet 62.5 mcg PO SA 04/21/22 04/21/22 04/18/22 History levothyroxine 125 mcg tablet 125 mcg PO SUMOTUWETHFR 04/21/22 04/21/22 04/21/22 History Exam Exam Date and Time: April 27, 2022 0712 Height,Weight and Vital Signs: Height 5 ft 2 in Weight 58.74 kg Last Vital Signs Temp 97.9 F 04/27/22 06:53 Pulse 80 04/27/22 06:53 Resp 20 04/27/22 06:53 BP 107/63 04/27/22 06:53 Pulse Ox 92 04/27/22 06:53 O2 Del Method 04/27/22 06:53 Pertinent Lab Results Pertinent Lab Results: Laboratory Tests 04/21/22 04/21/22 04/21/22 13:15 13:15 13:15 WBC RBC Hgb Hct MCV MCH MCHC RDW Plt Count MPV Immature Gran % (Auto) Neut % (Auto) Lymph % (Auto) King % (Auto) Eos % (Auto) Baso % (Auto) Lymph # (Auto) King # (Auto) Eos # (Auto) Baso # (Auto) Abs Immat Gran (auto) Absolute Neuts (auto) Absolute Nucleated RBC Nucleated RBC % (auto) Sodium Potassium Chloride Carbon Dioxide Anion Gap BUN Creatinine Estim Creat Clear Calc Estimated GFR Random Glucose Fasting Glucose Estimat Average Glucose Hemoglobin A1c % Calcium Total Bilirubin AST ALT Alkaline Phosphatase Total Protein Albumin Triglycerides Cholesterol LDL Cholesterol, Calc HDL Cholesterol Vitamin B12 TSH Urine Color Dark Yellow Urine Appearance Cloudy Urine pH 6.0 Ur Specific Warners 1.025 Urine Protein 100 (2+) H Urine Glucose (UA) Negative Urine Ketones 15 Urine Blood Negative Urine Nitrite Negative Ur Leukocyte Esterase Moderate (2+) H Urine RBC 0-2 Urine WBC 21-50 H Ur Squamous Epith Cells >20 Urine Bacteria 1+ Hyaline Casts 3-5 Urine Opiates Screen Not Detected Urine Fentanyl Screen Not Detected Ur Barbiturates Screen Not Detected Ur Phencyclidine Scrn Not Detected Ur Amphetamines Screen Not Detected U Benzodiazepines Scrn POSITIVE H Urine Cocaine Screen Not Detected U Marijuana (THC) Screen Not Detected Influenza Type A (PCR) NEGATIVE Influenza Type B (PCR) NEGATIVE RSV RNA Qual (PCR) NEGATIVE SARS-CoV-2 RNA (RT-PCR) NEGATIVE 04/21/22 04/21/22 04/22/22 16:18 16:18 08:57 WBC 10.7 RBC 4.97 Hgb 15.7 Hct 46.2 MCV 93.0 MCH 31.6 MCHC 34.0 RDW 11.7 Plt Count 237 MPV 11.1 Immature Gran % (Auto) 0.4 Neut % (Auto) 68.6 Lymph % (Auto) 21.8 King % (Auto) 8.4 Eos % (Auto) 0.4 Baso % (Auto) 0.4 Lymph # (Auto) 2.3 King # (Auto) 0.9 Eos # (Auto) 0.0 Baso # (Auto) 0.0 Abs Immat Gran (auto) 0.04 H Absolute Neuts (auto) 7.3 Absolute Nucleated RBC 0.000 Nucleated RBC % (auto) 0.0 Sodium 142 139 Potassium 3.2 L D 3.6 Chloride 100 98 Carbon Dioxide 33 H 32 H Anion Gap 12 13 BUN 22 H 17 H Creatinine 0.87 0.78 Estim Creat Clear Calc 49.6 55.3 Estimated GFR > 60 > 60 Random Glucose 86 Fasting Glucose 106 H Estimat Average Glucose Hemoglobin A1c % Calcium 10.1 10.2 Total Bilirubin 0.7 1.2 H AST 28 31 D ALT 48 H 54 H Alkaline Phosphatase 65 66 Total Protein 6.3 L 6.5 Albumin 4.4 4.5 Triglycerides 61 Cholesterol 205 LDL Cholesterol, Calc 115 HDL Cholesterol 78 Vitamin B12 TSH 0.37 Urine Color Urine Appearance Urine pH Ur Specific Warners Urine Protein Urine Glucose (UA) Urine Ketones Urine Blood Urine Nitrite Ur Leukocyte Esterase Urine RBC Urine WBC Ur Squamous Epith Cells Urine Bacteria Hyaline Casts Urine Opiates Screen Urine Fentanyl Screen Ur Barbiturates Screen Ur Phencyclidine Scrn Ur Amphetamines Screen U Benzodiazepines Scrn Urine Cocaine Screen U Marijuana (THC) Screen Influenza Type A (PCR) Influenza Type B (PCR) RSV RNA Qual (PCR) SARS-CoV-2 RNA (RT-PCR) 04/22/22 04/22/22 08:57 08:57 WBC RBC Hgb Hct MCV MCH MCHC RDW Plt Count MPV Immature Gran % (Auto) Neut % (Auto) Lymph % (Auto) King % (Auto) Eos % (Auto) Baso % (Auto) Lymph # (Auto) King # (Auto) Eos # (Auto) Baso # (Auto) Abs Immat Gran (auto) Absolute Neuts (auto) Absolute Nucleated RBC Nucleated RBC % (auto) Sodium Potassium Chloride Carbon Dioxide Anion Gap BUN Creatinine Estim Creat Clear Calc Estimated GFR Random Glucose Fasting Glucose Estimat Average Glucose 108 Hemoglobin A1c % 5.4 Calcium Total Bilirubin AST ALT Alkaline Phosphatase Total Protein Albumin Triglycerides Cholesterol LDL Cholesterol, Calc HDL Cholesterol Vitamin B12 559 TSH Urine Color Urine Appearance Urine pH Ur Specific Warners Urine Protein Urine Glucose (UA) Urine Ketones Urine Blood Urine Nitrite Ur Leukocyte Esterase Urine RBC Urine WBC Ur Squamous Epith Cells Urine Bacteria Hyaline Casts Urine Opiates Screen Urine Fentanyl Screen Ur Barbiturates Screen Ur Phencyclidine Scrn Ur Amphetamines Screen U Benzodiazepines Scrn Urine Cocaine Screen U Marijuana (THC) Screen Influenza Type A (PCR) Influenza Type B (PCR) RSV RNA Qual (PCR) SARS-CoV-2 RNA (RT-PCR) Airway Mallampati Class: II TM Dist: >3cm Neck ROM: Full Heart: rr Lungs: cta Assessment and Plan Final Anesthetic Review Family History of Problems with Anesthesia: No History of Problems with Anesthesia: No NPO: Yes Final Preanesthetic Review: No Changes in Pt Med Stat, Meds/Allgs Chart Reviewed, Consent Obtained/Reviewed and Anes Risks/Benef Reviewed Patient Risk: Low Procedure Risk: Low Anesthetic Plan Anesthetic Plan: GA Disposition: Standard PACU
--- NOTE | 2022-04-27 08:11 | MHC.SHP ---
Pre-Procedural Eval Section A Date of Service: 04/27/22 The patient is an INPATIENT: Yes Changes since office visit: Yes Changes in Medication and Yes Patient answered all questions; No Cold of Flu in the past 2 weeks and No New Medical Problems The History & Physical has been completed within 30 days and I have reviewed it.: Yes Section B Chief Complaint: SEC 12,SI W/PLAN,SEEN IN COMM BY N Allergies: Allergies Allergy/AdvReac Type Severity Reaction Status Date / Time hydrocortisone Allergy Hives Verified 04/14/21 14:10 Penicillins Allergy Rash Verified 04/14/21 14:10 erythromycin base AdvReac Gastrointestinal Verified 04/14/21 14:10 Upset Plan I have reviewed the history and physical and performed a pertinent physical examination on my patient. No changes have occurred unless specified. Time Spent With Patient Time: Total time managing care of this patient today ____ minutes.
[2022-04-27] MEDS: Levothyroxine Sodium 125 MCG TABLET PO (09:41)
--- NOTE | 2022-04-27 09:44 | PC.NURSE ---
Patient returned from PACU post ECT treatment. Patient is A &O x 4. Patient reports 5/10 headache. Denies Nausea. Vitals signs 97.9 Temp, Heart rate 96, Respiratory rate 17, Blood pressure of 97/52, and O2 of 93%. Dr. Papo real notified.
[2022-04-27] MEDS: clonazePAM 0.5 MG TABLET PO ×3 (10:08→21:20)
[2022-04-27] MEDS: Vilazodone HCL 40 MG TABLET PO (10:08)
[2022-04-27] MEDS: Acetaminophen 325 MG TABLET 650 MG PO ×2 (12:12→20:16)
--- NOTE | 2022-04-27 13:39 | HO.PSYCHPN ---
Subjective Subjective Date of Service: 04/27/22 Reason For Visit: SEC 12,SI W/PLAN,SEEN IN COMM BY Johnathon Interim History: calm, cooperative. somewhat flat, but less anxious and more fluid. states she is feeling woozy from the anesthesia, asks MD to relay the message to Dr. Lee, which is done. likewise that she would like to discharge on wednesday so she can be with her family for the holiday. mood OK, anxiety a little better. no other complaints or requests. per staff, anxious re ECT yesterday. anx 10, dep 5. helpless, hopeless. needing lots of redirection. sleeping and eating OK. went to ECT this morning. Mental Status Exam Mental Status Exam Narrative: adequately dressed and groomed. slight PMR. cooperative. speech nml rate, decr amount. soft, perhaps a bit flat. thoughts anxious but linear. affect constricted, hypo-intense, non-labile. mood ok, anxiety a little better. no SI/HI/AVH expressed. Diagnostics Vital Signs (24Hr): Vital Signs - 24 hr 04/26/22 18:00 04/27/22 06:53 04/27/22 08:30 Temperature 98.3 F 97.9 F 99.5 F Pulse Rate 94 80 77 Respiratory Rate 17 20 17 Blood Pressure 122/65 107/63 136/64 Pulse Oximetry 96 92 99 Oxygen Delivery Method Room Air Room Air Nasal Cannula with ETCO2 Oxygen Flow Rate 2 04/27/22 08:35 04/27/22 08:40 04/27/22 08:45 Temperature Pulse Rate 93 94 103 H Respiratory Rate 13 19 22 H Blood Pressure 145/61 H 132/74 132/65 Pulse Oximetry 99 96 96 Oxygen Delivery Method Nasal Cannula with ETCO2 Nasal Cannula with ETCO2 Nasal Cannula with ETCO2 Oxygen Flow Rate 2 2 2 04/27/22 09:00 04/27/22 09:15 04/27/22 09:39 Temperature 98.0 F 97.9 F Pulse Rate 107 H 99 96 Respiratory Rate 19 20 16 Blood Pressure 123/60 119/59 L 97/52 L Pulse Oximetry 92 92 93 Oxygen Delivery Method Room Air Room Air Room Air Oxygen Flow Rate BMI result Body Mass Index 23.6 Labs Results: 04/21/22 16:18 04/22/22 08:57 Imaging Radiology Impressions: ITS Impressions Brain MRI 04/24/22 09:49 IMPRESSION: There are a few scattered nonspecific signal changes within the periventricular white matter. Otherwise unremarkable examination. No evidence of acute territorial infarct or hemorrhage. No intracranial mass effect or hydrocephalus. Medications Medications Current Medications Acetaminophen (Acetaminophen 325 Mg Tablet) 650 mg PO Q6H PRN PRN Reason: Headache/Pain Mild Scale (1-3) Last Admin: 04/27/22 12:12 Dose: 650 mg Al Hydroxide/Mg Hydroxide (Magnesium Hydrox/Alum Hydrox 30 Ml Oral.Susp) 30 ml PO Q6H PRN PRN Reason: Heartburn/Nausea Amlodipine Besylate (Amlodipine Besylate 5 Mg Tablet) 5 mg PO DAILY [facility]; Protocol Last Admin: 04/27/22 10:16 Dose: Not Given Atorvastatin Calcium (Atorvastatin Calcium 40 Mg Tablet) 40 mg PO BEDTIME [facility] Last Admin: 04/26/22 20:45 Dose: 40 mg Clonazepam (Clonazepam 0.5 Mg Tablet) 0.5 mg PO TID [facility] Last Admin: 04/27/22 10:08 Dose: 0.5 mg Docusate Sodium (Docusate Sodium 100 Mg Capsule) 100 mg PO BEDTIME [facility] Last Admin: 04/26/22 20:45 Dose: 100 mg Hydrochlorothiazide (Hydrochlorothiazide 25 Mg Tablet) 25 mg PO DAILY [facility] Last Admin: 04/27/22 10:16 Dose: Not Given Hydroxyzine HCl (Hydroxyzine Hcl 25 Mg Tablet) 25 mg PO Q6H PRN PRN Reason: Anxiety Last Admin: 04/23/22 22:22 Dose: 25 mg Lactated Ringer's (Lr) 1,000 mls @ 50 mls/hr IVCONT .Q20H [facility] Last Admin: 04/27/22 09:42 Dose: Not Given Levothyroxine Sodium (Levothyroxine Sodium 125 Mcg Tablet) 62.5 mcg PO Sa@0600 [facility] Last Admin: 04/25/22 06:53 Dose: 62.5 mcg Levothyroxine Sodium (Levothyroxine Sodium 125 Mcg Tablet) 125 mcg PO SuMoTuWeThFr@0630 [facility] Last Admin: 04/27/22 09:41 Dose: 125 mcg Magnesium Hydroxide (Milk Of Magnesia 30 Ml Oral.Susp) 30 ml PO DAILY PRN PRN Reason: Constipation Last Admin: 04/25/22 16:02 Dose: 30 ml Trazodone HCl (Trazodone Hcl 25 Mg Halftab) 25 mg PO BEDTIME PRN PRN Reason: Insomnia Last Admin: 04/26/22 20:45 Dose: 25 mg Vilazodone HCl (Vilazodone Hcl 40 Mg Tablet) 40 mg PO DAILY [facility] Last Admin: 04/27/22 10:08 Dose: 40 mg Allergies Allergies Allergy/AdvReac Type Severity Reaction Status Date / Time hydrocortisone Allergy Hives Verified 04/14/21 14:10 Penicillins Allergy Rash Verified 04/14/21 14:10 erythromycin base AdvReac Gastrointestinal Verified 04/14/21 14:10 Upset Assessment & Plan Assessment & Plan (1) Major depressive disorder, recurrent severe without psychotic features: Status: Acute Code(s): F33.2 - Major depressive disorder, recurrent severe without psychotic features (2) Generalized anxiety disorder: Status: Acute Code(s): F41.1 - Generalized anxiety disorder Plan 04/22: continue outpt meds. collateral collected from avi outpt prescriber, who recommends ECT at this point. ECT discussed with alexis, pt referred to speak with alexis on the Tx option. ECT pt education presented to pt. TSH WNL. klonopin increased from 0.5 BID to 1 BID. 04/23: medical clearance for ECT completed. klonopin increased from 1 BID to 1 TID. ECT scheduled for wednesday. pt has yet to rescind her 3-day notice, which matures tomorrow. 04/24: 3-day notice rescinded. no medication changes today. ECT wednesday. 04/26: lowered Clonazepam to 0.5mg TID (back to home dose, down from 1mg TID); she will try not take at bedtime for ECT tomorrow. 04/27: ECT went well, some wooziness. mood and anxiety somewhat relieved. asking for wednesday DC so as to be home for the holiday. I spent ___25___ minutes with the patient and/or on the patient floor today, greater than?50% of which was spent counseling/coordinating care. Reason for contiued inpatient stay Substantial Risk for: harm to self, inability to function and rapid decompensation Time Spent With Patient Time: Total time managing care of this patient today ____ minutes.
--- NOTE | 2022-04-27 16:39 | HO.ECTPROC ---
ECT Procedure Note Diagnosis/Treatment Date of Service: 04/27/22 Diagnosis: Major Depressive Disorder Current Treatment Number: 1 Treatment: Series Interval Clinical Notes: Patient with severe anxiety outpatient of [facility] nurse practitioner referred for ECT consult by Dr. 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 ECT Settings Device: THYMATRON DGx Electrode Placement: Right Unilateral Program/Pulse Width: 0.50 Energy Percent: 100 Seizure Duration By EEG (in seconds): 60 Medications Administration General Anesthetic: Etomidate (12) Muscle Relaxant: Succinylcholine (80) Ancillary Medications Miscillaneous Medications: Midazolam (2mg post) Airway Management Airway Management: Bag Mask Ventilation Treatment Recommendations Program/Pulse Width: 0.25 Energy Percent: 100 Notes: seroquel started prn for anxiety did have preop anxiety and post op will try to not have wait Pt Tolerated Procedure w/o Issue: Yes
[2022-04-27] MEDS: QUEtiapine Fumarate 25 MG TABLET PO (17:13)
[2022-04-27] MEDS: Atorvastatin Calcium 40 MG TABLET PO (21:20)
[2022-04-27] MEDS: traZODone HCL 25 MG HALFTAB PO (21:20)
[2022-04-27] MEDS: Docusate Sodium 100 MG CAPSULE PO (21:20)
[2022-04-28 06:00] VITALS: BP 122/59; PULSE 84; RESP 16; TEMP 36.6; O2SAT 94
[2022-04-28] MEDS: Levothyroxine Sodium 125 MCG TABLET PO (07:02)
[2022-04-28] MEDS: Vilazodone HCL 40 MG TABLET PO (09:18)
[2022-04-28] MEDS: hydroCHLOROthiazide 25 MG TABLET PO (09:18)
[2022-04-28] MEDS: amLODIPine Besylate 5 MG TABLET PO (09:18)
[2022-04-28] MEDS: clonazePAM 0.5 MG TABLET PO ×2 (09:18→14:55)
[2022-04-28] MEDS: QUEtiapine Fumarate 25 MG TABLET PO (11:34)
[2022-04-28 18:00] VITALS: BP 121/63; PULSE 86; RESP 16; TEMP 36.6; O2SAT 98
--- NOTE | 2022-04-28 20:20 | P.PNPSI_ITS ---
Subjective Subjective Date of Service: 04/28/22 Reason For Visit: SEC 12,SI W/PLAN,SEEN IN COMM BY Johnathon Interim History: calm, cooperative. reports seroquel 25 helped some with anxiety and was not sedating. c/o anxiety this morning, agrees to try seroquel 25 again today. asking if she can go home in time for Xmas. planning for ECT tomorrow. per staff, pt later complained seroquel 25 was too sedating today, so PRN dosing reduced to 12.5 each. mild NOGUEIRA after ECT yesterday. some dizziness after ECT as well. napped days. not attending groups. eating and sleeping well. denies de pression, endorsing anxiety of 02/16. Mental Status Exam Mental Status Exam Narrative: adequately dressed and groomed. slight PMR. cooperative. speech nml rate, decr amount. soft, perhaps a bit flat. thoughts anxious but linear. affect constricted, hypo-intense, non-labile. mood anxious. no SI/HI/AVH expressed. Diagnostics Vital Signs (24Hr): Vital Signs - 24 hr 04/28/22 06:00 04/28/22 18:00 Temperature 97.9 F 97.8 F Pulse Rate 84 86 Respiratory Rate 16 16 Blood Pressure 122/59 L 121/63 Pulse Oximetry 94 98 Oxygen Delivery Method Room Air Room Air BMI result Body Mass Index 23.6 Labs Results: 04/21/22 16:18 04/22/22 08:57 Imaging Radiology Impressions: ITS Impressions Brain MRI 04/24/22 09:49 IMPRESSION: There are a few scattered nonspecific signal changes within the periventricular white matter. Otherwise unremarkable examination. No evidence of acute territorial infarct or hemorrhage. No intracranial mass effect or hydrocephalus. Medications Medications Current Medications Acetaminophen (Acetaminophen 325 Mg Tablet) 650 mg PO Q6H PRN PRN Reason: Headache/Pain Mild Scale (1-3) Last Admin: 04/27/22 20:16 Dose: 650 mg Al Hydroxide/Mg Hydroxide (Magnesium Hydrox/Alum Hydrox 30 Ml Oral.Susp) 30 ml PO Q6H PRN PRN Reason: Heartburn/Nausea Amlodipine Besylate (Amlodipine Besylate 5 Mg Tablet) 5 mg PO DAILY [facility]; P rotocol Last Admin: 04/28/22 09:18 Dose: 5 mg Atorvastatin Calcium (Atorvastatin Calcium 40 Mg Tablet) 40 mg PO BEDTIME [facility] Last Admin: 04/27/22 21:20 Dose: 40 mg Clonazepam (Clonazepam 0.5 Mg Tablet) 0.5 mg PO TID [facility] Last Admin: 04/28/22 14:55 Dose: 0.5 mg Docusate Sodium (Docusate Sodium 100 Mg Capsule) 100 mg PO BEDTIME [facility] Last Admin: 04/27/22 21:20 Dose: 100 mg Hydrochlorothiazide (Hydrochlorothiazide 25 Mg Tablet) 25 mg PO DAILY [facility] Last Admin: 04/28/22 09:18 Dose: 25 mg Hydroxyzine HCl (Hydroxyzine Hcl 25 Mg Tablet) 25 mg PO Q6H PRN PRN Reason: Anxiety Last Admin: 04/23/22 22:22 Dose: 25 mg Lactated Ringer's (Lr) 1,000 mls @ 50 mls/hr IVCONT .Q20H [facility] Last Admin: 04/27/22 22:25 Dose: Not Given Levothyroxine Sodium (Levothyroxine Sodium 125 Mcg Tablet) 62.5 mcg PO Sa@0600 [facility] Last Admin: 04/25/22 06:53 Dose: 62.5 mcg Levothyroxine Sodium (Levothyroxine Sodium 125 Mcg Tablet) 125 mcg PO SuMoTuWeThFr@0630 [facility] Last Admin: 04/28/22 07:02 Dose: 125 mcg Magnesium Hydroxide (Milk Of Magnesia 30 Ml Oral.Susp) 30 ml PO DAILY PRN PRN Reason: Constipation Last Admin: 04/25/22 16:02 Dose: 30 ml Quetiapine Fumarate (Quetiapine Fumarate 25 Mg Tablet) 12.5 mg PO Q4H PRN PRN Reason: anxiety/restlessness Trazodone HCl (Trazodone Hcl 25 Mg Halftab) 25 mg PO BEDTIME PRN PRN Reason: Insomnia Last Admin: 04/27/22 21:20 Dose: 25 mg Vilazodone HCl (Vilazodone Hcl 40 Mg Tablet) 40 mg PO DAILY [facility] Last Admin: 04/28/22 09:18 Dose: 40 mg Allergies Allergies Allergy/AdvReac Type Severity Reaction Status Date / Time hydrocortisone Allergy Hives Verified 04/14/21 14:10 Penicillins Allergy Rash Verified 04/14/21 14:10 erythromycin base AdvReac Gastrointestinal Verified 04/14/21 14:10 Upset Assessment & Plan Assessment & Plan (1) Major depressive disorder, recurrent severe without psychotic features: Status: Acute Code(s): F33.2 - Major depressive disorder, recurrent severe without psychotic features (2) Generalized anxiety disorder: Status: Acute Code(s): F41.1 - Generalized anxiety disorder Plan 04/22: continue outpt meds. collateral collected from avi outpt prescriber, who recommends ECT at this point. ECT discussed with alexis, pt referred to speak with alexis on the Tx option. ECT pt education presented to pt. TSH WNL. klonopin increased from 0.5 BID to 1 BID. 04/23: medical clearance for ECT completed. klonopin increased from 1 BID to 1 TID. ECT scheduled for wednesday. pt has yet to rescind her 3-day notice, which matures tomorrow. 04/24: 3-day notice rescinded. no medication changes today. ECT wednesday mo rning. 04/26: lowered Clonazepam to 0.5mg TID (back to home dose, down from 1mg TID); she will try not take at bedtime for ECT tomorrow. 04/27: ECT went well, some wooziness. mood and anxiety somewhat relieved. asking for wednesday DC so as to be home for the holiday. 04/28: stable, some PMR and flat affect. appears less anxious but still c/o severe anxiety. ECT #2 tomorrow. I spent __20____ minutes with the patient and/or on the patient floor today, greater than?50% of which was spent counseling/coordinating care. Reason for contiued inpatient stay Substantial Risk for: harm to self, inability to function and med/psych decompensation Time Spent With Patient Time: Total time managing care of this patient today ____ minutes.
[2022-04-28] MEDS: Docusate Sodium 100 MG CAPSULE PO (21:01)
[2022-04-28] MEDS: traZODone HCL 25 MG HALFTAB PO (21:01)
[2022-04-28] MEDS: Atorvastatin Calcium 40 MG TABLET PO (21:01)
[2022-04-29] VITALS (11 sets, daily range): BP systolic 110–141; BP diastolic 55–77; PULSE 72–97; RESP 13–21; TEMP 36.6–37.2; O2SAT 93–97
[2022-04-29] MEDS: QUEtiapine Fumarate 25 MG TABLET 12.5 MG PO (05:52)
--- NOTE | 2022-04-29 06:46 | P.CONAN_ITS ---
[facility] Active Problems Active Problems: All Active Problems (Updated 04/21/22 @ 13:53 by Brad Benoit MD) Major depressive disorder, recurrent severe without psychotic features (Acute) Generalized anxiety disorder (Acute) Major depression, recurrent (Acute) Past Medical History Medical History Hyperlipidemia Hypothyroidism Tinnitus Family History Family history of problems with anesthesia: No Surgical History Surgical History H/O shoulder surgery History of endometrial ablation Hx of foot surgery Hx of tonsillectomy History of Problems with Anesthesia: No Social History Social History Household Members: Spouse Housing: House Do you presently have visiting nurse or other home services: No Alcohol intake: unknown Patient Tobacco Use Status: Never used Tobacco Smoked in Last 30 Days: No e-Cigarette/Vaping Use: Never Used Patient Interested in Nicotine Replacement: No Patient Given Instructions on How to Stop Smoking: No Second Hand Smoke Exposure: No Use of substances other than those prescribed or required for medical reasons: No Currently Displaying Signs/Symptoms of Drug Intoxication Withdrawal: No Any prior treatment program specific to substance use: No Have you been hit, kicked, punched, or otherwise hurt by someone within the past year? If so, by whom?: No Do you feel safe in your current relationship?: Yes Is there a partner from a previous relationship who is making you feel unsafe now?: No Are you made to feel afraid or neglected: No Advance Directives: Yes Advance Directives Information Provided: Yes Advance Directives on File: No Do you have thoughts of harming others: None Do you have a plan to hurt others: No Plan Recently lost weight without trying: Yes How much weight loss: 14-23 pounds Eating poorly because of decreased appetite: Yes Nutrition screen score: 5 Nutrition Risks: No Nutritional Risk Patient : No : No Poor oral hygiene: No service: No Sexual orientation: Don't Know Meds Allergies Allergy/AdvReac Type Severity Reaction Status Date / Time hydrocortisone Allergy Hives Verified 04/14/21 14:10 Penicillins Allergy Rash Verified 04/14/21 14:10 erythromycin base AdvReac Gastrointestinal Verified 04/14/21 14:10 Upset Active Medications: Current Medications Acetaminophen (Acetaminophen 325 Mg Tablet) 650 mg PO Q6H PRN PRN Reason: Headache/Pain Mild Scale (1-3) Last Admin: 04/27/22 20:16 Dose: 650 mg Al Hydroxide/Mg Hydroxide (Magnesium Hydrox/Alum Hydrox 30 Ml Oral.Susp) 30 ml PO Q6H PRN PRN Reason: Heartburn/Nausea Amlodipine Besylate (Amlodipine Besylate 5 Mg Tablet) 5 mg PO DAILY [facility]; Protocol Last Admin: 04/28/22 09:18 Dose: 5 mg Atorvastatin Calcium (Atorvastatin Calcium 40 Mg Tablet) 40 mg PO BEDTIME [facility] Last Admin: 04/28/22 21:01 Dose: 40 mg Clonazepam (Clonazepam 0.5 Mg Tablet) 0.5 mg PO TID [facility] Last Admin: 04/28/22 20:44 Dose: Not Given Docusate Sodium (Docusate Sodium 100 Mg Capsule) 100 mg PO BEDTIME [facility] Last Admin: 04/28/22 21:01 Dose: 100 mg Hydrochlorothiazide (Hydrochlorothiazide 25 Mg Tablet) 25 mg PO DAILY [facility] Last Admin: 04/28/22 09:18 Dose: 25 mg Hydroxyzine HCl (Hydroxyzine Hcl 25 Mg Tablet) 25 mg PO Q6H PRN PRN Reason: Anxiety Last Admin: 04/23/22 22:22 Dose: 25 mg Lactated Ringer's (Lr) 1,000 mls @ 50 mls/hr IVCONT .Q20H [facility] Last Admin: 04/27/22 22:25 Dose: Not Given Lactated Ringer's (Lr) 500 mls @ 20 mls/hr IVCONT .Q24H [facility] Levothyroxine Sodium (Levothyroxine Sodium 125 Mcg Tablet) 62.5 mcg PO Sa@0600 [facility] Last Admin: 04/25/22 06:53 Dose: 62.5 mcg Levothyroxine Sodium (Levothyroxine Sodium 125 Mcg Tablet) 125 mcg PO SuMoTuWeThFr@0630 [facility] Last Admin: 04/28/22 07:02 Dose: 125 mcg Magnesium Hydroxide (Milk Of Magnesia 30 Ml Oral.Susp) 30 ml PO DAILY PRN PRN Reason: Constipation Last Admin: 04/25/22 16:02 Dose: 30 ml Quetiapine Fumarate (Quetiapine Fumarate 25 Mg Tablet) 12.5 mg PO Q4H PRN PRN Reason: anxiety/restlessness Trazodone HCl (Trazodone Hcl 25 Mg Halftab) 25 mg PO BEDTIME PRN PRN Reason: Insomnia Last Admin: 04/28/22 21:01 Dose: 25 mg Vilazodone HCl (Vilazodone Hcl 40 Mg Tablet) 40 mg PO DAILY [facility] Last Admin: 04/28/22 09:18 Dose: 40 mg Home Medications Medication Instructions Recorded Confirmed Last Taken Type multivitamin 1 tab PO DAILY 04/11/21 04/21/22 04/21/22 History amlodipine 5 mg tablet 1 tab PO DAILY 04/21/22 04/21/22 04/21/22 History atorvastatin 40 mg tablet 1 tab PO DAILY 04/21/22 04/21/22 04/21/22 History cholecalciferol (vitamin D3) 25 25 mcg PO DAILY 04/21/22 04/21/22 Unknown History mcg (1,000 unit) tablet clonazepam 0.5 mg tablet 1 tab PO BID 04/21/22 04/21/22 04/21/22 History indapamide 1.25 mg tablet 1 tab PO QAM 04/21/22 04/21/22 04/21/22 History levothyroxine 125 mcg tablet 62.5 mcg PO SA 04/21/22 04/21/22 04/18/22 History levothyroxine 125 mcg tablet 125 mcg PO SUMOTUWETHFR 04/21/22 04/21/22 04/21/22 History Exam Exam Date and Time: April 29, 2022 0646 Height,Weight and Vital Signs: Height 5 ft 2 in Weight 58.74 kg Last Vital Signs Temp 97.9 F 04/29/22 05:52 Pulse 90 04/29/22 05:52 Resp 16 04/29/22 05:52 BP 120/66 04/29/22 05:52 Pulse Ox 98 04/28/22 18:00 O2 Del Method 04/28/22 18:00 O2 Flow Rate 2 04/27/22 08:45 Pertinent Lab Results Pertinent Lab Results: Laboratory Tests 04/21/22 04/21/22 04/21/22 13:15 13:15 13:15 WBC RBC Hgb Hct MCV MCH MCHC RDW Plt Count MPV Immature Gran % (Auto) Neut % (Auto) Lymph % (Auto) Boyd % (Auto) Eos % (Auto) Baso % (Auto) Lymph # (Auto) Boyd # (Auto) Eos # (Auto) Baso # (Auto) Abs Immat Gran (auto) Absolute Neuts (auto) Absolute Nucleated RBC Nucleated RBC % (auto) Sodium Potassium Chloride Carbon Dioxide Anion Gap BUN Creatinine Estim Creat Clear Calc Estimated GFR Random Glucose Fasting Glucose Estimat Average Glucose Hemoglobin A1c % Calcium Total Bilirubin AST ALT Alkaline Phosphatase Total Protein Albumin Triglycerides Cholesterol LDL Cholesterol, Calc HDL Cholesterol Vitamin B12 TSH Urine Color Dark Yellow Urine Appearance Cloudy Urine pH 6.0 Ur Specific [place] 1.025 Urine Protein 100 (2+) H Urine Glucose (UA) Negative Urine Ketones 15 Urine Blood Negative Urine Nitrite Negative Ur Leukocyte Esterase Moderate (2+) H Urine RBC 0-2 Urine WBC 21-50 H Ur Squamous Epith Cells >20 Urine Bacteria 1+ Hyaline Casts 3-5 Urine Opiates Screen Not Detected Urine Fentanyl Screen Not Detected Ur Barbiturates Screen Not Detected Ur Phencyclidine Scrn Not Detected Ur Amphetamines Screen Not Detected U Benzodiazepines Scrn POSITIVE H Urine Cocaine Screen Not Detected U Marijuana (THC) Screen Not Detected Influenza Type A (PCR) NEGATIVE Influenza Type B (PCR) NEGATIVE RSV RNA Qual (PCR) NEGATIVE SARS-CoV-2 RNA (RT-PCR) NEGATIVE 04/21/22 04/21/22 04/22/22 16:18 16:18 08:57 WBC 10.7 RBC 4.97 Hgb 15.7 Hct 46.2 MCV 93.0 MCH 31.6 MCHC 34.0 RDW 11.7 Plt Count 237 MPV 11.1 Immature Gran % (Auto) 0.4 Neut % (Auto) 68.6 Lymph % (Auto) 21.8 Boyd % (Auto) 8.4 Eos % (Auto) 0.4 Baso % (Auto) 0.4 Lymph # (Auto) 2.3 Boyd # (Auto) 0.9 Eos # (Auto) 0.0 Baso # (Auto) 0.0 Abs Immat Gran (auto) 0.04 H Absolute Neuts (auto) 7.3 Absolute Nucleated RBC 0.000 Nucleated RBC % (auto) 0.0 Sodium 142 139 Potassium 3.2 L D 3.6 Chloride 100 98 Carbon Dioxide 33 H 32 H Anion Gap 12 13 BUN 22 H 17 H Creatinine 0.87 0.78 Estim Creat Clear Calc 49.6 55.3 Estimated GFR > 60 > 60 Random Glucose 86 Fasting Glucose 106 H Estimat Average Glucose Hemoglobin A1c % Calcium 10.1 10.2 Total Bilirubin 0.7 1.2 H AST 28 31 D ALT 48 H 54 H Alkaline Phosphatase 65 66 Total Protein 6.3 L 6.5 Albumin 4.4 4.5 Triglycerides 61 Cholesterol 205 LDL Cholesterol, Calc 115 HDL Cholesterol 78 Vitamin B12 TSH 0.37 Urine Color Urine Appearance Urine pH Ur Specific [place] Urine Protein Urine Glucose (UA) Urine Ketones Urine Blood Urine Nitrite Ur Leukocyte Esterase Urine RBC Urine WBC Ur Squamous Epith Cells Urine Bacteria Hyaline Casts Urine Opiates Screen Urine Fentanyl Screen Ur Barbiturates Screen Ur Phencyclidine Scrn Ur Amphetamines Screen U Benzodiazepines Scrn Urine Cocaine Screen U Marijuana (THC) Screen Influenza Type A (PCR) Influenza Type B (PCR) RSV RNA Qual (PCR) SARS-CoV-2 RNA (RT-PCR) 04/22/22 04/22/22 08:57 08:57 WBC RBC Hgb Hct MCV MCH MCHC RDW Plt Count MPV Immature Gran % (Auto) Neut % (Auto) Lymph % (Auto) Boyd % (Auto) Eos % (Auto) Baso % (Auto) Lymph # (Auto) Boyd # (Auto) Eos # (Auto) Baso # (Auto) Abs Immat Gran (auto) Absolute Neuts (auto) Absolute Nucleated RBC Nucleated RBC % (auto) Sodium Potassium Chloride Carbon Dioxide Anion Gap BUN Creatinine Estim Creat Clear Calc Estimated GFR Random Glucose Fasting Glucose Estimat Average Glucose 108 Hemoglobin A1c % 5.4 Calcium Total Bilirubin AST ALT Alkaline Phosphatase Total Protein Albumin Triglycerides Cholesterol LDL Cholesterol, Calc HDL Cholesterol Vitamin B12 559 TSH Urine Color Urine Appearance Urine pH Ur Specific [place] Urine Protein Urine Glucose (UA) Urine Ketones Urine Blood Urine Nitrite Ur Leukocyte Esterase Urine RBC Urine WBC Ur Squamous Epith Cells Urine Bacteria Hyaline Casts Urine Opiates Screen Urine Fentanyl Screen Ur Barbiturates Screen Ur Phencyclidine Scrn Ur Amphetamines Screen U Benzodiazepines Scrn Urine Cocaine Screen U Marijuana (THC) Screen Influenza Type A (PCR) Influenza Type B (PCR) RSV RNA Qual (PCR) SARS-CoV-2 RNA (RT-PCR) Airway Mallampati Class: II TM Dist: >3cm Neck ROM: Full Heart: rrr Lungs: cta Assessment and Plan Assessment Anesthesia Assessment: Anesthesia Plan Discussed and Chart Reviewed Final Anesthetic Review Family History of Problems with Anesthesia: No History of Problems with Anesthesia: No NPO: Yes ASA Class: III Final Preanesthetic Review: No Changes in Pt Med Stat, Meds/Allgs Chart Reviewed and Consent Obtained/Reviewed Patient Risk: Intermediate Procedure Risk: Intermediate Anesthetic Plan Anesthetic Plan: GA Disposition: Standard PACU
--- NOTE | 2022-04-29 07:11 | MHC.SHP ---
Pre-Procedural Eval Section A Date of Service: 04/29/22 The patient is an INPATIENT: Yes Changes since office visit: Yes Changes in Medication and Yes Patient answered all questions; No Cold of Flu in the past 2 weeks and No New Medical Problems Section B Chief Complaint: SEC 12,SI W/PLAN,SEEN IN COMM BY Johnathon Allergies: Allergies Allergy/AdvReac Type Severity Reaction Status Date / Time hydrocortisone Allergy Hives Verified 04/14/21 14:10 Penicillins Allergy Rash Verified 04/14/21 14:10 erythromycin base AdvReac Gastrointestinal Verified 04/14/21 14:10 Upset Plan I have reviewed the history and physical and performed a pertinent physical examination on my patient. No changes have occurred unless specified. Time Spent With Patient Time: Total time managing care of this patient today ____ minutes.
[2022-04-29] MEDS: Vilazodone HCL 40 MG TABLET PO (08:30)
[2022-04-29] MEDS: clonazePAM 0.5 MG TABLET PO ×2 (08:31→15:10)
[2022-04-29] MEDS: Levothyroxine Sodium 125 MCG TABLET PO (08:31)
[2022-04-29] MEDS: amLODIPine Besylate 5 MG TABLET PO (08:31)
[2022-04-29] MEDS: Acetaminophen 325 MG TABLET 650 MG PO ×2 (08:31→21:59)
[2022-04-29] MEDS: hydroCHLOROthiazide 25 MG TABLET PO (08:32)
--- NOTE | 2022-04-29 09:04 | HO.ECTPROC ---
ECT Procedure Note Diagnosis/Treatment Date of Service: 04/29/22 Diagnosis: Major Depressive Disorder (with severe anxiety) Previous ECT Date: 04/27/22 Current Treatment Number: 2 Treatment: Series Interval Clinical Notes: pt with less anxiety with seroquel tolerated first ect Time: Total time managing care of this patient today ____ minutes. ECT Settings Device: THYMATRON DGx Electrode Placement: Right Unilateral Program/Pulse Width: 0.50 Energy Percent: 80 Seizure Duration By EEG (in seconds): 49 Medications Administration General Anesthetic: Etomidate (12) Muscle Relaxant: Succinylcholine (80) Ancillary Medications Analgesics: Torodol - Pre ECT Anti-emetics: Zofran - Pre ECT Airway Management Airway Management: Bag Mask Ventilation Treatment Recommendations No Changes Recommended: No change Pt Tolerated Procedure w/o Issue: Yes
--- NOTE | 2022-04-29 14:59 | HO.PSYCHPN ---
Subjective Subjective Date of Service: 04/29/22 Reason For Visit: SEC 12,SI W/PLAN,SEEN IN COMM BY Johnathon Interim History: calm, cooperative. seen resting in her bed after ECT this morning. slight NOGUEIRA, still anxious, no other complaints or requests. appears more relaxed than prior to first ECT. asking for discharge wednesday, reports per discussion with alexis prior to ECT today, she will be discharging wednesday. per staff, pleasant, sleeping well. taking meds, eating well. strong anxiety. attending groups, visible. no SI/HI/AVH. +NOGUEIRA today after ECT, which was uneventful. reported feeling good after ECT today. Mental Status Exam Mental Status Exam Narrative: adequately dressed and groomed. slight PMR. cooperative. speech nml rate, decr amount. soft, perhaps a bit flat. thoughts anxious but linear. affect constricted, hypo-intense, non-labile. mood anxious. no SI/HI/AVH expressed. Diagnostics Vital Signs (24Hr): Vital Signs - 24 hr 04/28/22 18:00 04/29/22 05:52 04/29/22 07:29 Temperature 97.8 F 97.9 F 99.0 F Pulse Rate 86 90 97 Respiratory Rate 16 16 13 Blood Pressure 121/63 120/66 141/71 H Pulse Oximetry 98 96 Oxygen Delivery Method Room Air Nasal Cannula with ETCO2 Oxygen Flow Rate 2 04/29/22 07:34 04/29/22 07:39 04/29/22 07:44 Temperature Pulse Rate 94 92 94 Respiratory Rate 20 21 H 21 H Blood Pressure 125/77 131/75 122/71 Pulse Oximetry 94 94 94 Oxygen Delivery Method Nasal Cannula with ETCO2 Nasal Cannula with ETCO2 Nasal Cannula with ETCO2 Oxygen Flow Rate 2 2 2 04/29/22 07:59 04/29/22 08:14 04/29/22 06:00 Temperature 98.7 F 98.1 F Pulse Rate 88 81 72 Respiratory Rate 20 17 18 Blood Pressure 121/63 129/67 110/55 L Pulse Oximetry 94 93 95 Oxygen Delivery Method Nasal Cannula with ETCO2 Room Air Room Air Oxygen Flow Rate 2 04/29/22 06:45 04/29/22 08:51 Temperature 97.8 F Pulse Rate 78 Respiratory Rate 16 Blood Pressure 110/55 L Pulse Oximetry 95 95 Oxygen Delivery Method Room Air Oxygen Flow Rate BMI result Body Mass Index 23.6 Labs Results: 04/21/22 16:18 04/22/22 08:57 Imaging Radiology Impressions: ITS Impressions Brain MRI 04/24/22 09:49 IMPRESSION: There are a few scattered nonspecific signal changes within the periventricular white matter. Otherwise unremarkable examination. No evidence of acute territorial infarct or hemorrhage. No intracranial mass effect or hydrocephalus. Medications Medications Current Medications Acetaminophen (Acetaminophen 325 Mg Tablet) 650 mg PO Q6H PRN PRN Reason: Headache/Pain Mild Scale (1-3) Last Admin: 04/29/22 08:31 Dose: 650 mg Al Hydroxide/Mg Hydroxide (Magnesium Hydrox/Alum Hydrox 30 Ml Oral.Susp) 30 ml PO Q6H PRN PRN Reason: Heartburn/Nausea Amlodipine Besylate (Amlodipine Besylate 5 Mg Tablet) 5 mg PO DAILY [facility]; Protocol Last Admin: 04/29/22 08:31 Dose: 5 mg Atorvastatin Calcium (Atorvastatin Calcium 40 Mg Tablet) 40 mg PO BEDTIME [facility] Last Admin: 04/28/22 21:01 Dose: 40 mg Clonazepam (Clonazepam 0.5 Mg Tablet) 0.5 mg PO TID [facility] Last Admin: 04/29/22 08:31 Dose: 0.5 mg Docusate Sodium (Docusate Sodium 100 Mg Capsule) 100 mg PO BEDTIME [facility] Last Admin: 04/28/22 21:01 Dose: 100 mg Hydrochlorothiazide (Hydrochlorothiazide 25 Mg Tablet) 25 mg PO DAILY [facility] Last Admin: 04/29/22 08:32 Dose: 25 mg Hydroxyzine HCl (Hydroxyzine Hcl 25 Mg Tablet) 25 mg PO Q6H PRN PRN Reason: Anxiety Last Admin: 04/23/22 22:22 Dose: 25 mg Levothyroxine Sodium (Levothyroxine Sodium 125 Mcg Tablet) 62.5 mcg PO Sa@0600 [facility] Last Admin: 04/25/22 06:53 Dose: 62.5 mcg Levothyroxine Sodium (Levothyroxine Sodium 125 Mcg Tablet) 125 mcg PO SuMoTuWeThFr@0630 [facility] Last Admin: 04/29/22 08:31 Dose: 125 mcg Magnesium Hydroxide (Milk Of Magnesia 30 Ml Oral.Susp) 30 ml PO DAILY PRN PRN Reason: Constipation Last Admin: 04/25/22 16:02 Dose: 30 ml Quetiapine Fumarate (Quetiapine Fumarate 25 Mg Tablet) 12.5 mg PO Q4H PRN PRN Reason: anxiety/restlessness Trazodone HCl (Trazodone Hcl 25 Mg Halftab) 25 mg PO BEDTIME PRN PRN Reason: Insomnia Last Admin: 04/28/22 21:01 Dose: 25 mg Vilazodone HCl (Vilazodone Hcl 40 Mg Tablet) 40 mg PO DAILY [facility] Last Admin: 04/29/22 08:30 Dose: 40 mg Allergies Allergies Allergy/AdvReac Type Severity Reaction Status Date / Time hydrocortisone Allergy Hives Verified 04/14/21 14:10 Penicillins Allergy Rash Verified 04/14/21 14:10 erythromycin base AdvReac Gastrointestinal Verified 04/14/21 14:10 Upset Assessment & Plan Assessment & Plan (1) Major depressive disorder, recurrent severe without psychotic features: Status: Acute Code(s): F33.2 - Major depressive disorder, recurrent severe without psychotic features (2) Generalized anxiety disorder: Status: Acute Code(s): F41.1 - Generalized anxiety disorder Plan 04/22: continue outpt meds. collateral collected from avi outpt prescriber, who recommends ECT at this point. ECT discussed with alexis, pt referred to speak with alexis on the Tx option. ECT pt education presented to pt. TSH WNL. klonopin increased from 0.5 BID to 1 BID. 04/23: medical clearance for ECT completed. klonopin increased from 1 BID to 1 TID. ECT scheduled for wednesday. pt has yet to rescind her 3-day notice, which matures tomorrow. 04/24: 3-day notice rescinded. no medication changes today. ECT wednesday morning. 04/26: lowered Clonazepam to 0.5mg TID (back to home dose, down from 1mg TID); she will try not take at bedtime for ECT tomorrow. 04/27: ECT went well, some wooziness. mood and anxiety somewhat relieved. asking for wednesday DC so as to be home for the holiday. 04/28: stable, some PMR and flat affect. appears less anxious but still c/o severe anxiety. ECT #2 tomorrow. 04/29: ECT #2 completed without complication. still anxious. I spent __20____ minutes with the patient and/or on the patient floor today, greater than?50% of which was spent counseling/coordinating care. Reason for contiued inpatient stay Substantial Risk for: harm to self, inability to function and rapid decompensation Time Spent With Patient Time: Total time managing care of this patient today ____ minutes.
[2022-04-29] MEDS: Atorvastatin Calcium 40 MG TABLET PO (20:48)
[2022-04-29] MEDS: Docusate Sodium 100 MG CAPSULE PO (20:48)
[2022-04-29] MEDS: traZODone HCL 25 MG HALFTAB PO (20:52)
[2022-04-29] MEDS: Milk of Magnesia 30 ML ORAL.SUSP PO (20:52)
[2022-04-30] MEDS: Levothyroxine Sodium 125 MCG TABLET PO (06:21)
[2022-04-30 08:30] VITALS: BP 100/53; PULSE 75; RESP 18; TEMP 36.9; O2SAT 96
[2022-04-30] MEDS: amLODIPine Besylate 5 MG TABLET PO (08:33)
[2022-04-30] MEDS: Vilazodone HCL 40 MG TABLET PO (08:33)
[2022-04-30] MEDS: hydroCHLOROthiazide 25 MG TABLET PO (08:33)
[2022-04-30] MEDS: clonazePAM 0.5 MG TABLET PO ×2 (08:33→14:59)
[2022-04-30 09:00] VITALS: BMI 23.7
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
[2022-04-30] MEDS: QUEtiapine Fumarate 25 MG TABLET 12.5 MG PO (12:29)
[2022-04-30 21:10] VITALS: BP 128/72; PULSE 75; RESP 18; TEMP 36.3; O2SAT 98
[2022-04-30] MEDS: Atorvastatin Calcium 40 MG TABLET PO (21:10)
[2022-04-30] MEDS: traZODone HCL 25 MG HALFTAB PO (21:10)
[2022-04-30] MEDS: Docusate Sodium 100 MG CAPSULE PO (21:10)
[2022-05-01] VITALS (11 sets, daily range): BP systolic 122–155; BP diastolic 64–82; PULSE 79–103; RESP 16–21; TEMP 36.1–37.7; O2SAT 93–100; BMI 23.8
[2022-05-01] MEDS: QUEtiapine Fumarate 25 MG TABLET 12.5 MG PO (11:14)
--- NOTE | 2022-05-01 12:38 | HO.ANESPROP2 ---
HPI - Anesthesia Eval Consult details Narrative: 67 yo female patient for ECT PMFSH Active Problems Active Problems: All Active Problems (Updated 05/01/22 @ 12:38 pm by Charley Quintana MD) Major depressive disorder, recurrent severe without psychotic features (Acute) Generalized anxiety disorder (Acute) Major depression, recurrent (Acute) HTN Insomnia Past Medical History Medical History Hyperlipidemia Hypothyroidism Tinnitus Family History Family history of problems with anesthesia: No Surgical History Surgical History H/O shoulder surgery History of endometrial ablation Hx of foot surgery Hx of tonsillectomy History of Problems with Anesthesia: No Social History Social History Household Members: Spouse Housing: House Do you presently have visiting nurse or other home services: No Alcohol intake: unknown Patient Tobacco Use Status: Never used Tobacco e-Cigarette/Vaping Use: Never Used Second Hand Smoke Exposure: No service: No Sexual orientation: Don't Know Meds Allergies Allergy/AdvReac Type Severity Reaction Status Date / Time hydrocortisone Allergy Hives Verified 04/14/21 14:10 Penicillins Allergy Rash Verified 04/14/21 14:10 erythromycin base AdvReac Gastrointestinal Verified 04/14/21 14:10 Upset Active Medications: Current Medications Acetaminophen (Acetaminophen 325 Mg Tablet) 650 mg PO Q6H PRN PRN Reason: Headache/Pain Mild Scale (1-3) Last Admin: 04/29/22 21:59 Dose: 650 mg Al Hydroxide/Mg Hydroxide (Magnesium Hydrox/Alum Hydrox 30 Ml Oral.Susp) 30 ml PO Q6H PRN PRN Reason: Heartburn/Nausea Amlodipine Besylate (Amlodipine Besylate 5 Mg Tablet) 5 mg PO DAILY MILDRED; Protocol Last Admin: 04/30/22 08:33 Dose: 5 mg Atorvastatin Calcium (Atorvastatin Calcium 40 Mg Tablet) 40 mg PO BEDTIME [place] Last Admin: 04/30/22 21:10 Dose: 40 mg Clonazepam (Clonazepam 0.5 Mg Tablet) 0.5 mg PO TID [place]ED Last Admin: 04/30/22 21:09 Dose: Not Given Docusate Sodium (Docusate Sodium 100 Mg Capsule) 100 mg PO BEDTIME [place]ED Last Admin: 04/30/22 21:10 Dose: 100 mg Hydrochlorothiazide (Hydrochlorothiazide 25 Mg Tablet) 25 mg PO DAILY [facility] Last Admin: 04/30/22 08:33 Dose: 25 mg Hydroxyzine HCl (Hydroxyzine Hcl 25 Mg Tablet) 25 mg PO Q6H PRN PRN Reason: Anxiety Last Admin: 04/23/22 22:22 Dose: 25 mg Levothyroxine Sodium (Levothyroxine Sodium 125 Mcg Tablet) 62.5 mcg PO Sa@0600 [facility] Last Admin: 04/25/22 06:53 Dose: 62.5 mcg Levothyroxine Sodium (Levothyroxine Sodium 125 Mcg Tablet) 125 mcg PO SuMoTuWeThFr@0630 [facility] Last Admin: 04/30/22 06:21 Dose: 125 mcg Magnesium Hydroxide (Milk Of Magnesia 30 Ml Oral.Susp) 30 ml PO DAILY PRN PRN Reason: Constipation Last Admin: 04/29/22 20:52 Dose: 30 ml Quetiapine Fumarate (Quetiapine Fumarate 25 Mg Tablet) 12.5 mg PO Q4H PRN PRN Reason: anxiety/restlessness Last Admin: 04/30/22 12:29 Dose: 12.5 mg Trazodone HCl (Trazodone Hcl 25 Mg Halftab) 25 mg PO BEDTIME PRN PRN Reason: Insomnia Last Admin: 04/30/22 21:10 Dose: 25 mg Vilazodone HCl (Vilazodone Hcl 40 Mg Tablet) 40 mg PO DAILY [facility] Last Admin: 04/30/22 08:33 Dose: 40 mg Home Medications Medication Instructions Recorded Confirmed Last Taken Type multivitamin 1 tab PO DAILY 04/11/21 04/21/22 04/21/22 History amlodipine 5 mg tablet 1 tab PO DAILY 04/21/22 04/21/22 04/21/22 History atorvastatin 40 mg tablet 1 tab PO DAILY 04/21/22 04/21/22 04/21/22 History cholecalciferol (vitamin D3) 25 25 mcg PO DAILY 04/21/22 04/21/22 Unknown History mcg (1,000 unit) tablet clonazepam 0.5 mg tablet 1 tab PO BID 04/21/22 04/21/22 04/21/22 History indapamide 1.25 mg tablet 1 tab PO QAM 04/21/22 04/21/22 04/21/22 History levothyroxine 125 mcg tablet 62.5 mcg PO SA 04/21/22 04/21/22 04/18/22 History levothyroxine 125 mcg tablet 125 mcg PO SUMOTUWETHFR 04/21/22 04/21/22 04/21/22 History Exam Exam Date and Time: May 01, 2022 1238 Height,Weight and Vital Signs: Height 5 ft 2 in Weight 58.876 kg Last Vital Signs Temp 97.8 F 05/01/22 09:05 Pulse 79 05/01/22 09:05 Resp 18 05/01/22 09:05 BP 122/67 05/01/22 09:05 Pulse Ox 94 05/01/22 09:05 O2 Del Method 05/01/22 09:05 O2 Flow Rate 2 04/29/22 07:59 Vital Signs Temp Pulse Resp BP Pulse Ox O2 Del Method 05/01/22 09:05 97.8 F 79 18 122/67 94 Room Air 04/30/22 21:10 97.4 F 75 18 128/72 98 Room Air Pertinent Lab Results Pertinent Lab Results: Laboratory Tests 04/21/22 04/21/22 04/21/22 13:15 13:15 13:15 WBC RBC Hgb Hct MCV MCH MCHC RDW Plt Count MPV Immature Gran % (Auto) Neut % (Auto) Lymph % (Auto) [place] % (Auto) Eos % (Auto) Baso % (Auto) Lymph # (Auto) [place] # (Auto) Eos # (Auto) Baso # (Auto) Abs Immat Gran (auto) Absolute Neuts (auto) Absolute Nucleated RBC Nucleated RBC % (auto) Sodium Potassium Chloride Carbon Dioxide Anion Gap BUN Creatinine Estim Creat Clear Calc Estimated GFR Random Glucose Fasting Glucose Estimat Average Glucose Hemoglobin A1c % Calcium Total Bilirubin AST ALT Alkaline Phosphatase Total Protein Albumin Triglycerides Cholesterol LDL Cholesterol, Calc HDL Cholesterol Vitamin B12 TSH Urine Color Dark Yellow Urine Appearance Cloudy Urine pH 6.0 Ur Specific [place] 1.025 Urine Protein 100 (2+) H Urine Glucose (UA) Negative Urine Ketones 15 Urine Blood Negative Urine Nitrite Negative Ur Leukocyte Esterase Moderate (2+) H Urine RBC 0-2 Urine WBC 21-50 H Ur Squamous Epith Cells >20 Urine Bacteria 1+ Hyaline Casts 3-5 Urine Opiates Screen Not Detected Urine Fentanyl Screen Not Detected Ur Barbiturates Screen Not Detected Ur Phencyclidine Scrn Not Detected Ur Amphetamines Screen Not Detected U Benzodiazepines Scrn POSITIVE H Urine Cocaine Screen Not Detected U Marijuana (THC) Screen Not Detected Influenza Type A (PCR) NEGATIVE Influenza Type B (PCR) NEGATIVE RSV RNA Qual (PCR) NEGATIVE SARS-CoV-2 RNA (RT-PCR) NEGATIVE 04/21/22 04/21/22 04/22/22 16:18 16:18 08:57 WBC 10.7 RBC 4.97 Hgb 15.7 Hct 46.2 MCV 93.0 MCH 31.6 MCHC 34.0 RDW 11.7 Plt Count 237 MPV 11.1 Immature Gran % (Auto) 0.4 Neut % (Auto) 68.6 Lymph % (Auto) 21.8 [place] % (Auto) 8.4 Eos % (Auto) 0.4 Baso % (Auto) 0.4 Lymph # (Auto) 2.3 [place] # (Auto) 0.9 Eos # (Auto) 0.0 Baso # (Auto) 0.0 Abs Immat Gran (auto) 0.04 H Absolute Neuts (auto) 7.3 Absolute Nucleated RBC 0.000 Nucleated RBC % (auto) 0.0 Sodium 142 139 Potassium 3.2 L D 3.6 Chloride 100 98 Carbon Dioxide 33 H 32 H Anion Gap 12 13 BUN 22 H 17 H Creatinine 0.87 0.78 Estim Creat Clear Calc 49.6 55.3 Estimated GFR > 60 > 60 Random Glucose 86 Fasting Glucose 106 H Estimat Average Glucose Hemoglobin A1c % Calcium 10.1 10.2 Total Bilirubin 0.7 1.2 H AST 28 31 D ALT 48 H 54 H Alkaline Phosphatase 65 66 Total Protein 6.3 L 6.5 Albumin 4.4 4.5 Triglycerides 61 Cholesterol 205 LDL Cholesterol, Calc 115 HDL Cholesterol 78 Vitamin B12 TSH 0.37 Urine Color Urine Appearance Urine pH Ur Specific [place] Urine Protein Urine Glucose (UA) Urine Ketones Urine Blood Urine Nitrite Ur Leukocyte Esterase Urine RBC Urine WBC Ur Squamous Epith Cells Urine Bacteria Hyaline Casts Urine Opiates Screen Urine Fentanyl Screen Ur Barbiturates Screen Ur Phencyclidine Scrn Ur Amphetamines Screen U Benzodiazepines Scrn Urine Cocaine Screen U Marijuana (THC) Screen Influenza Type A (PCR) Influenza Type B (PCR) RSV RNA Qual (PCR) SARS-CoV-2 RNA (RT-PCR) 04/22/22 04/22/22 08:57 08:57 WBC RBC Hgb Hct MCV MCH MCHC RDW Plt Count MPV Immature Gran % (Auto) Neut % (Auto) Lymph % (Auto) [place] % (Auto) Eos % (Auto) Baso % (Auto) Lymph # (Auto) [place] # (Auto) Eos # (Auto) Baso # (Auto) Abs Immat Gran (auto) Absolute Neuts (auto) Absolute Nucleated RBC Nucleated RBC % (auto) Sodium Potassium Chloride Carbon Dioxide Anion Gap BUN Creatinine Estim Creat Clear Calc Estimated GFR Random Glucose Fasting Glucose Estimat Average Glucose 108 Hemoglobin A1c % 5.4 Calcium Total Bilirubin AST ALT Alkaline Phosphatase Total Protein Albumin Triglycerides Cholesterol LDL Cholesterol, Calc HDL Cholesterol Vitamin B12 559 TSH Urine Color Urine Appearance Urine pH Ur Specific [place] Urine Protein Urine Glucose (UA) Urine Ketones Urine Blood Urine Nitrite Ur Leukocyte Esterase Urine RBC Urine WBC Ur Squamous Epith Cells Urine Bacteria Hyaline Casts Urine Opiates Screen Urine Fentanyl Screen Ur Barbiturates Screen Ur Phencyclidine Scrn Ur Amphetamines Screen U Benzodiazepines Scrn Urine Cocaine Screen U Marijuana (THC) Screen Influenza Type A (PCR) Influenza Type B (PCR) RSV RNA Qual (PCR) SARS-CoV-2 RNA (RT-PCR) Airway Mallampati Class: II TM Dist: >3cm Neck ROM: Full Loose/Missing/Broken Teeth: Yes (Many capped teeth. Top front Incisor chipped behind) Heart: RRR Lungs: CTAB Assessment and Plan Assessment Anesthesia Assessment: Anesthesia Plan Discussed and Chart Reviewed Final Anesthetic Review Family History of Problems with Anesthesia: No History of Problems with Anesthesia: No NPO: Yes ASA Class: II Final Preanesthetic Review: No Changes in Pt Med Stat, Meds/Allgs Chart Reviewed, Consent Obtained/Reviewed and Anes Risks/Benef Reviewed Patient Risk: Intermediate Procedure Risk: Intermediate Assessment/Block/Sedation in SS: Assess/Block/Sedation-SS Anesthetic Plan Anesthetic Plan: GA Disposition: Standard PACU and Inp. Admit - Standard Bed
[2022-05-01] MEDS: Acetaminophen 325 MG TABLET 650 MG PO (13:38)
[2022-05-01] MEDS: hydroCHLOROthiazide 25 MG TABLET PO (14:12)
[2022-05-01] MEDS: Vilazodone HCL 40 MG TABLET PO (14:13)
[2022-05-01] MEDS: clonazePAM 0.5 MG TABLET PO (14:13)
[2022-05-01] MEDS: amLODIPine Besylate 5 MG TABLET PO (14:13)
[2022-05-01] MEDS: Levothyroxine Sodium 125 MCG TABLET PO (14:13)
--- NOTE | 2022-05-06 08:26 | HO.ECTPROC ---
ECT Procedure Note Diagnosis/Treatment Date of Service: 05/01/22 Diagnosis: Major Depressive Disorder Previous ECT Date: 04/29/22 Current Treatment Number: 3 Treatment: Series Interval Clinical Notes: improvement noted Time: Total time managing care of this patient today ____ minutes. ECT Settings Device: THYMATRON DGx Electrode Placement: Right Unilateral Program/Pulse Width: 0.50 Energy Percent: 80 Seizure Duration By EEG (in seconds): 69 Medications Administration General Anesthetic: Etomidate (12) Muscle Relaxant: Succinylcholine (80) Airway Management Airway Management: Bag Mask Ventilation Treatment Recommendations No Changes Recommended: No change Notes: pt stable for d/c doing well with ect ok to transition to outpt Pt Tolerated Procedure w/o Issue: Yes
== END 2022-05-01 16:30 | disposition home or self-care (01) | DRG 751 ==
LOC: HO.ED 17:23 → HO.PADLT16 20:14
PROVIDERS: Psychiatry & Neurology Psychiatry; Admitting Provider Social Worker; Emergency Provider Emergency Medicine; PCP Internal Medicine; Visit Provider Psychiatry & Neurology Psychiatry
PROC: GZB4ZZZ Other Electroconvulsive Therapy (ICD-10-PCS; CPT 90870; principal; 2022-04-27 13:40)
PROC: (CPT 90870; principal; 2022-05-01 15:30)
DX: F33.2 Major depressive disorder, recurrent severe without psychotic features (principal); E03.9 Hypothyroidism, unspecified; F41.1 Generalized anxiety disorder; E78.5 Hyperlipidemia, unspecified; Z20.822 Contact with and (suspected) exposure to COVID-19; Z88.0 Allergy status to penicillin; Z88.8 Allergy status to other drugs, medicaments and biological substances; Z79.890 Hormone replacement therapy; Z79.899 Other long term (current) drug therapy
CPT/HCPCS: 0241U; 36415; 70551; 80053; 80061; 80307; 81001; 82607; 83036; 84443; 85025; 87086; 90870; 93005; 99285; J0330; J1885; J2250; J2405

== ENCOUNTER 2022-05-06 06:01 | Day surgery (SDC) | payer BC, SELFPAY ==
[2022-05-06] VITALS (7 sets, daily range): BP systolic 124–143; BP diastolic 58–78; PULSE 70–105; RESP 16–20; TEMP 36.6–37.4; O2SAT 92–99; BMI 22.3
[2022-05-06 06:38] LABS: COVID-19 Test Negative (Negative)
--- NOTE | 2022-05-06 07:04 | MHC.SHP ---
Pre-Procedural Eval Section A Date of Service: 05/06/22 The patient is an INPATIENT: No Changes since office visit: Yes Changes in Medication and Yes Patient answered all questions; No Cold of Flu in the past 2 weeks and No New Medical Problems The History & Physical has been completed within 30 days and I have reviewed it.: Yes Section B Chief Complaint: Major depressive disorder, recurrent, Allergies: Allergies Allergy/AdvReac Type Severity Reaction Status Date / Time hydrocortisone Allergy Hives Verified 04/14/21 14:10 Penicillins Allergy Rash Verified 04/14/21 14:10 erythromycin base AdvReac Gastrointestinal Verified 04/14/21 14:10 Upset Plan I have reviewed the history and physical and performed a pertinent physical examination on my patient. No changes have occurred unless specified. Time Spent With Patient Time: Total time managing care of this patient today ____ minutes.
--- NOTE | 2022-05-06 07:13 | P.CONAN_ITS ---
[facility] Active Problems Active Problems: All Active Problems (Updated 04/21/22 @ 13:53 by Brad Benoit MD) Major depressive disorder, recurrent severe without psychotic features (Acute) Generalized anxiety disorder (Acute) Major depression, recurrent (Acute) Past Medical History Medical History Hyperlipidemia Hypothyroidism Tinnitus Family History Family history of problems with anesthesia: No Surgical History Surgical History H/O shoulder surgery History of endometrial ablation Hx of foot surgery Hx of tonsillectomy History of Problems with Anesthesia: No Social History Social History Household Members: Spouse Housing: House Do you presently have visiting nurse or other home services: No Alcohol intake: unknown Patient Tobacco Use Status: Never used Tobacco e-Cigarette/Vaping Use: Never Used Second Hand Smoke Exposure: No Advance Directives: Yes Advance Directives on File: Yes Advance Directives Date on File: 05/01/22 service: No Sexual orientation: Don't Know Meds Allergies Allergy/AdvReac Type Severity Reaction Status Date / Time hydrocortisone Allergy Hives Verified 04/14/21 14:10 Penicillins Allergy Rash Verified 04/14/21 14:10 erythromycin base AdvReac Gastrointestinal Verified 04/14/21 14:10 Upset Home Medications Medication Instructions Recorded Confirmed Last Taken Type multivitamin 1 tab PO DAILY 04/11/21 04/21/22 04/21/22 History amlodipine 5 mg tablet 1 tab PO DAILY 04/21/22 04/21/22 04/21/22 History atorvastatin 40 mg tablet 1 tab PO DAILY 04/21/22 04/21/22 04/21/22 History cholecalciferol (vitamin D3) 25 25 mcg PO DAILY 04/21/22 04/21/22 Unknown History mcg (1,000 unit) tablet clonazepam 0.5 mg tablet 1 tab PO BID 04/21/22 04/21/22 04/21/22 History indapamide 1.25 mg tablet 1 tab PO QAM 04/21/22 04/21/22 04/21/22 History levothyroxine 125 mcg tablet 62.5 mcg PO SA 04/21/22 04/21/22 04/18/22 History levothyroxine 125 mcg tablet 125 mcg PO SUMOTUWETHFR 04/21/22 04/21/22 04/21/22 History Exam Exam Date and Time: May 06, 2022712 Height,Weight and Vital Signs: Height 5 ft 4 in Weight 58.967 kg Last Vital Signs Temp 97.9 F 05/06/22 06:38 Pulse 75 05/06/22 06:38 Resp 16 05/06/22 06:38 BP 143/66 H 05/06/22 06:38 Pulse Ox 97 05/06/22 06:38 O2 Del Method 05/06/22 06:38 Pertinent Lab Results Pertinent Lab Results: Laboratory Tests 05/06/22 06:13 COVID-19 ([facility]) Negative COVID-19 Clin Com See Note Airway Mallampati Class: II TM Dist: >3cm Neck ROM: Full Assessment and Plan Assessment Anesthesia Assessment: Anesthesia Plan Discussed and Chart Reviewed Final Anesthetic Review Family History of Problems with Anesthesia: No History of Problems with Anesthesia: No NPO: Yes ASA Class: II Final Preanesthetic Review: No Changes in Pt Med Stat, Meds/Allgs Chart Reviewed, Consent Obtained/Reviewed and Anes Risks/Benef Reviewed Patient Risk: Low Procedure Risk: Intermediate Anesthetic Plan Anesthetic Plan: GA Disposition: Standard PACU
--- NOTE | 2022-05-06 07:20 | HO.ECTPROC ---
ECT Procedure Note Diagnosis/Treatment Date of Service: 05/06/22 Diagnosis: Major Depressive Disorder Previous ECT Date: 05/01/22 Current Treatment Number: 4 Treatment: Series Interval Clinical Notes: has been doing well Time: Total time managing care of this patient today ____ minutes. ECT Settings Device: THYMATRON DGx Electrode Placement: Right Unilateral Program/Pulse Width: 0.50 Energy Percent: 80 Seizure Duration By EEG (in seconds): 67 Medications Administration General Anesthetic: Etomidate (12) Muscle Relaxant: Succinylcholine (80) Ancillary Medications Analgesics: Torodol - Pre ECT Anti-emetics: Zofran - Pre ECT Airway Management Airway Management: Bag Mask Ventilation Treatment Recommendations No Changes Recommended: No change Notes: doing well change to piter castillo 6 as tolerated
--- NOTE | 2022-05-06 07:47 | HO.ECTPROC ---
ECT Procedure Note Diagnosis/Treatment Date of Service: 05/06/22 Diagnosis: Major Depressive Disorder Previous ECT Date: 05/13/22 Current Treatment Number: 5 Treatment: Series Interval Clinical Notes: pt feeling much umproved no c/o side effects Time: Total time managing care of this patient today ____ minutes. ECT Settings Device: THYMATRON DGx Electrode Placement: Right Unilateral Program/Pulse Width: 0.50 Energy Percent: 80 Seizure Duration By EEG (in seconds): 67 Medications Administration General Anesthetic: Etomidate (12) Muscle Relaxant: Succinylcholine (80) Airway Management Airway Management: Bag Mask Ventilation Treatment Recommendations No Changes Recommended: No change Notes: transition to maintenance tx Pt Tolerated Procedure w/o Issue: Yes
--- NOTE | 2022-05-06 07:48 | PC.NURSE ---
patient waking up. Noticed a piece of tooth in mouth. Removed and notified Dr. Dennis patient denies pain or sensitivity.
== END 2022-05-06 08:43 ==
LOC: HO.SSS 06:01
PROVIDERS: PCP Internal Medicine; Visit Provider Psychiatry & Neurology Psychiatry
PROC: (CPT 90870; principal; 2022-05-06 07:30)
DX: F33.2 Major depressive disorder, recurrent severe without psychotic features (principal); F41.1 Generalized anxiety disorder; I10 Essential (primary) hypertension; E78.5 Hyperlipidemia, unspecified; E03.9 Hypothyroidism, unspecified; H93.19 Tinnitus, unspecified ear; Z79.899 Other long term (current) drug therapy; Z88.0 Allergy status to penicillin; Z88.1 Allergy status to other antibiotic agents; Z88.8 Allergy status to other drugs, medicaments and biological substances; Z20.822 Contact with and (suspected) exposure to COVID-19
CPT/HCPCS: 87635; 90870; J0330; J1885; J2405

== ENCOUNTER 2022-05-08 06:02 | Day surgery (SDC) | payer BC, SELFPAY ==
[2022-05-08] VITALS (7 sets, daily range): BP systolic 120–149; BP diastolic 69–88; PULSE 73–94; RESP 16–18; TEMP 36.9–37.5; O2SAT 94–97; BMI 21.4
[2022-05-08 06:38] LABS: COVID-19 Test Negative (Negative); IDNOW Serial# 9DB6401D
--- NOTE | 2022-05-08 07:53 | MHC.SHP ---
Pre-Procedural Eval Section A Date of Service: 05/08/22 The patient is an INPATIENT: No Changes since office visit: Yes Patient answered all questions; No Cold of Flu in the past 2 weeks, No New Medical Problems and No Changes in Medication The History & Physical has been completed within 30 days and I have reviewed it.: Yes Section B Chief Complaint: Major depressive disorder, recurrent, Allergies: Allergies Allergy/AdvReac Type Severity Reaction Status Date / Time hydrocortisone Allergy Hives Verified 04/14/21 14:10 Penicillins Allergy Rash Verified 04/14/21 14:10 erythromycin base AdvReac Gastrointestinal Verified 04/14/21 14:10 Upset Plan I have reviewed the history and physical and performed a pertinent physical examination on my patient. No changes have occurred unless specified. Time Spent With Patient Time: Total time managing care of this patient today ____ minutes.
--- NOTE | 2022-05-08 07:54 | HO.ECTPROC ---
ECT Procedure Note Diagnosis/Treatment Date of Service: 05/08/22 Diagnosis: Major Depressive Disorder Previous ECT Date: 05/06/22 Current Treatment Number: 4 Treatment: Series Interval Clinical Notes: pt continues to feel better Time: Total time managing care of this patient today ____ minutes. ECT Settings Device: THYMATRON DGx Electrode Placement: Right Unilateral Program/Pulse Width: 0.50 Energy Percent: 100 Seizure Duration By EEG (in seconds): 50 Medications Administration General Anesthetic: Etomidate (12) Muscle Relaxant: Succinylcholine (80) Ancillary Medications Analgesics: Torodol - Pre ECT Anti-emetics: Zofran - Pre ECT Airway Management Airway Management: Bag Mask Ventilation Treatment Recommendations No Changes Recommended: No change Notes: cont ect to 6 then start maint tx discussed with pt Pt Tolerated Procedure w/o Issue: Yes
--- NOTE | 2022-05-08 08:58 | P.CONAN_ITS ---
HPI - Anesthesia Eval Consult details Narrative: 67 yo female patient for ECT PMFSH Active Problems Active Problems: All Active Problems (Updated 04/21/22 @ 13:53 by Brad Benoit MD) Major depressive disorder, recurrent severe without psychotic features (Acute) Generalized anxiety disorder (Acute) Major depression, recurrent (Acute) Past Medical History Medical History Hyperlipidemia Hypothyroidism Tinnitus Family History Family history of problems with anesthesia: No Surgical History Surgical History H/O shoulder surgery History of endometrial ablation Hx of foot surgery Hx of tonsillectomy History of Problems with Anesthesia: No Social History Social History Household Members: Spouse Housing: House Do you presently have visiting nurse or other home services: No Alcohol intake: unknown Patient Tobacco Use Status: Never used Tobacco e-Cigarette/Vaping Use: Never Used Second Hand Smoke Exposure: No Advance Directives: Yes Advance Directives on File: Yes Advance Directives Date on File: 05/01/22 service: No Sexual orientation: Don't Know Meds Allergies Allergy/AdvReac Type Severity Reaction Status Date / Time hydrocortisone Allergy Hives Verified 04/14/21 14:10 Penicillins Allergy Rash Verified 04/14/21 14:10 erythromycin base AdvReac Gastrointestinal Verified 04/14/21 14:10 Upset Home Medications Medication Instructions Recorded Confirmed Last Taken Type multivitamin 1 tab PO DAILY 04/11/21 04/21/22 04/21/22 History amlodipine 5 mg tablet 1 tab PO DAILY 04/21/22 04/21/22 04/21/22 History atorvastatin 40 mg tablet 1 tab PO DAILY 04/21/22 04/21/22 04/21/22 History cholecalciferol (vitamin D3) 25 25 mcg PO DAILY 04/21/22 04/21/22 Unknown History mcg (1,000 unit) tablet clonazepam 0.5 mg tablet 1 tab PO BID 04/21/22 04/21/22 04/21/22 History indapamide 1.25 mg tablet 1 tab PO QAM 04/21/22 04/21/22 04/21/22 History levothyroxine 125 mcg tablet 62.5 mcg PO SA 04/21/22 04/21/22 04/18/22 History levothyroxine 125 mcg tablet 125 mcg PO SUMOTUWETHFR 04/21/22 04/21/22 04/21/22 History Exam Exam Date and Time: May 08, 2022 0858 Height,Weight and Vital Signs: Height 5 ft 4 in Weight 56.699 kg Last Vital Signs Temp 99.2 F 05/08/22 08:15 Pulse 94 05/08/22 08:45 Resp 18 05/08/22 08:45 BP 137/75 05/08/22 08:45 Pulse Ox 94 05/08/22 08:45 O2 Del Method 05/08/22 08:45 O2 Flow Rate 2 05/08/22 08:20 Pertinent Lab Results Pertinent Lab Results: Laboratory Tests 05/08/22 06:15 COVID-19 ([facility]) Negative COVID-19 Clin Com See Note Airway Mallampati Class: II TM Dist: >3cm Neck ROM: Full Loose/Missing/Broken Teeth: No (Many caps. Denies loose teeth. 1 chipped cap bottom left back) Heart: RRR Lungs: CTAB Assessment and Plan Assessment Anesthesia Assessment: Anesthesia Plan Discussed and Chart Reviewed Final Anesthetic Review Family History of Problems with Anesthesia: No History of Problems with Anesthesia: No NPO: Yes ASA Class: II Final Preanesthetic Review: No Changes in Pt Med Stat, Meds/Allgs Chart Reviewed , Consent Obtained/Reviewed and Anes Risks/Benef Reviewed Patient Risk: Intermediate Procedure Risk: Intermediate Anesthetic Plan Anesthetic Plan: GA Disposition: Standard PACU
== END 2022-05-08 09:13 | disposition home or self-care (01) ==
PROVIDERS: PCP Internal Medicine; Visit Provider Psychiatry & Neurology Psychiatry
PROC: (CPT 90870; principal; 2022-05-08 08:00)
DX: F33.9 Major depressive disorder, recurrent, unspecified (principal); E78.5 Hyperlipidemia, unspecified; E03.9 Hypothyroidism, unspecified; H93.19 Tinnitus, unspecified ear; Z79.899 Other long term (current) drug therapy; Z88.0 Allergy status to penicillin; Z88.8 Allergy status to other drugs, medicaments and biological substances; Z20.822 Contact with and (suspected) exposure to COVID-19
CPT/HCPCS: 87635; 90870; J0330; J1885; J2405

== ENCOUNTER 2022-05-13 06:00 | Day surgery (SDC) | payer BC, SELFPAY ==
[2022-05-13] VITALS (7 sets, daily range): BP systolic 131–161; BP diastolic 62–85; PULSE 74–99; RESP 15–24; TEMP 36.5–37; O2SAT 95–99; BMI 21.4
--- NOTE | 2022-05-13 06:39 | HO.ANESPROP2 ---
[facility] Active Problems Active Problems: All Active Problems (Updated 04/21/22 @ 13:53 by Brad Benoit MD) Major depressive disorder, recurrent severe without psychotic features (Acute) Generalized anxiety disorder (Acute) Major depression, recurrent (Acute) Past Medical History Medical History Hyperlipidemia Hypothyroidism Tinnitus Family History Family history of problems with anesthesia: No Surgical History Surgical History H/O shoulder surgery History of endometrial ablation Hx of foot surgery Hx of tonsillectomy History of Problems with Anesthesia: No Social History Social History Household Members: Spouse Housing: House Do you presently have visiting nurse or other home services: No Alcohol intake: unknown Patient Tobacco Use Status: Never used Tobacco e-Cigarette/Vaping Use: Never Used Second Hand Smoke Exposure: No Advance Directives: Yes Advance Directives on File: Yes Advance Directives Date on File: 05/01/22 service: No Sexual orientation: Don't Know Meds Allergies Allergy/AdvReac Type Severity Reaction Status Date / Time hydrocortisone Allergy Hives Verified 04/14/21 14:10 Penicillins Allergy Rash Verified 04/14/21 14:10 erythromycin base AdvReac Gastrointestinal Verified 04/14/21 14:10 Upset Home Medications Medication Instructions Recorded Confirmed Last Taken Type multivitamin 1 tab PO DAILY 04/11/21 04/21/22 04/21/22 History amlodipine 5 mg tablet 1 tab PO DAILY 04/21/22 04/21/22 04/21/22 History atorvastatin 40 mg tablet 1 tab PO DAILY 04/21/22 04/21/22 04/21/22 History cholecalciferol (vitamin D3) 25 25 mcg PO DAILY 04/21/22 04/21/22 Unknown History mcg (1,000 unit) tablet clonazepam 0.5 mg tablet 1 tab PO BID 04/21/22 04/21/22 04/21/22 History indapamide 1.25 mg tablet 1 tab PO QAM 04/21/22 04/21/22 04/21/22 History levothyroxine 125 mcg tablet 62.5 mcg PO SA 04/21/22 04/21/22 04/18/22 History levothyroxine 125 mcg tablet 125 mcg PO SUMOTUWETHFR 04/21/22 04/21/22 04/21/22 History Exam Exam Date and Time: May 13, 2022 0639 Height,Weight and Vital Signs: Height 5 ft 4 in Weight 56.699 kg Last Vital Signs Temp 97.7 F 05/13/22 06:32 Pulse 85 05/13/22 06:32 Resp 15 05/13/22 06:32 BP 133/85 05/13/22 06:32 Pulse Ox 96 05/13/22 06:32 O2 Del Method 05/13/22 06:32 Airway Mallampati Class: II (Caps laterally, recently fixed cap left bottom) TM Dist: >3cm Neck ROM: Full Heart: rrr Lungs: cta Assessment and Plan Assessment Anesthesia Assessment: Anesthesia Plan Discussed and Chart Reviewed Final Anesthetic Review Family History of Problems with Anesthesia: No History of Problems with Anesthesia: No NPO: Yes ASA Class: III Final Preanesthetic Review: No Changes in Pt Med Stat, Meds/Allgs Chart Reviewed and Consent Obtained/Reviewed Patient Risk: Intermediate Procedure Risk: Intermediate Anesthetic Plan Anesthetic Plan: GA Disposition: Standard PACU
[2022-05-13 06:45] LABS: COVID-19 Test Negative (Negative); IDNOW Serial# 16C4AD1C
--- NOTE | 2022-05-13 07:13 | MHC.SHP ---
Pre-Procedural Eval Section A Date of Service: 05/13/22 The patient is an INPATIENT: No Changes since office visit: Yes Patient answered all questions; No Cold of Flu in the past 2 weeks, No New Medical Problems and No Changes in Medication The History & Physical has been completed within 30 days and I have reviewed it.: Yes Section B Chief Complaint: Major depressive disorder, recurrent, Allergies: Allergies Allergy/AdvReac Type Severity Reaction Status Date / Time hydrocortisone Allergy Hives Verified 04/14/21 14:10 Penicillins Allergy Rash Verified 04/14/21 14:10 erythromycin base AdvReac Gastrointestinal Verified 04/14/21 14:10 Upset Plan I have reviewed the history and physical and performed a pertinent physical examination on my patient. No changes have occurred unless specified. Time Spent With Patient Time: Total time managing care of this patient today ____ minutes.
--- NOTE | 2022-05-13 07:25 | HO.ECTPROC ---
ECT Procedure Note Diagnosis/Treatment Date of Service: 05/13/22 Diagnosis: Major Depressive Disorder Previous ECT Date: 05/08/22 Current Treatment Number: 5 Treatment: Series Interval Clinical Notes: pt continues to feel better ongoing Time: Total time managing care of this patient today ____ minutes. ECT Settings Device: THYMATRON DGx Electrode Placement: Right Unilateral Program/Pulse Width: 0.50 Energy Percent: 100 Seizure Duration By EEG (in seconds): 50 Medications Administration General Anesthetic: Etomidate (12) Muscle Relaxant: Succinylcholine (80) Ancillary Medications Analgesics: Torodol - Pre ECT Anti-emetics: Zofran - Pre ECT Airway Management Airway Management: Bag Mask Ventilation Treatment Recommendations No Changes Recommended: No change Notes: cont ect to 6 then start maint tx discussed with pt Pt Tolerated Procedure w/o Issue: Yes
== END 2022-05-13 08:35 | disposition home or self-care (01) ==
PROVIDERS: PCP Internal Medicine; Visit Provider Psychiatry & Neurology Psychiatry
PROC: (CPT 90870; principal; 2022-05-13 07:00)
DX: F33.9 Major depressive disorder, recurrent, unspecified (principal); E78.5 Hyperlipidemia, unspecified; E03.9 Hypothyroidism, unspecified; H93.19 Tinnitus, unspecified ear; Z79.899 Other long term (current) drug therapy; Z88.0 Allergy status to penicillin; Z88.8 Allergy status to other drugs, medicaments and biological substances; Z20.822 Contact with and (suspected) exposure to COVID-19
CPT/HCPCS: 87635; 90870; J0330; J1885; J2405

== ENCOUNTER 2022-05-15 06:03 | Day surgery (SDC) | payer BC, SELFPAY ==
[2022-05-15 06:33] VITALS: BP 126/75; PULSE 79; RESP 18; TEMP 36.7; O2SAT 94; BMI 21.4
[2022-05-15 06:45] LABS: COVID-19 Test Negative (Negative); IDNOW Serial# 16C4AD1C
[2022-05-15 06:52] LABS: MANUAL DIFF FLAG NO
[2022-05-15 06:56] LABS: Basophils Percent Auto 0.5 % (0-2); Eosinophils Absolute Auto 0.1 X10*3/uL (0.0-0.4); Eosinophils Percent Auto 0.8 % (0-4); Hematocrit 43.5 % (37.0-47.0); Hemoglobin 14.5 g/dl (12.0-16.0); Imm Gran Abs Auto 0.03 X10*3/uL (0.00-0.03); Imm Gran Pct Auto 0.3 % (0.0-0.4); Lymphocytes Absolute Auto 1.7 X10*3/uL (1.2-4.9); Lymphocytes Percent Auto 20.1 % (20-40); Mean Corpuscular HGB Conc 33.3 g/dl (31.0-35.0); Mean Corpuscular Volume 93.1 fL (80.0-98.0); Mean Platelet Volume 11.1 fL (9.4-12.3); Monocytes Absolute Auto 0.6 X10*3/uL (0.1-1.2); Monocytes Percent Auto 7.3 % (2-11); Neutrophils Absolute Auto 6.1 x10*3/uL (2.0-8.3); Platelet Count 275 X10*3/uL (160-400); Red Blood Count 4.67 X10*6/uL (4.20-5.50); Red Cell Distribution Width 11.9 % (11.0-16.0); White Blood Count 8.6 X10*3/uL (4.8-10.8)
--- NOTE | 2022-05-15 07:01 | HO.ANESPROP2 ---
[facility] Active Problems Active Problems: All Active Problems (Updated 04/21/22 @ 13:53 by Brad Benoit MD) Major depressive disorder, recurrent severe without psychotic features (Acute) Generalized anxiety disorder (Acute) Major depression, recurrent (Acute) Past Medical History Medical History Hyperlipidemia Hypothyroidism Tinnitus Family History Family history of problems with anesthesia: No Surgical History Surgical History H/O shoulder surgery History of endometrial ablation Hx of foot surgery Hx of tonsillectomy History of Problems with Anesthesia: No Social History Social History Household Members: Spouse Housing: House Do you presently have visiting nurse or other home services: No Alcohol intake: unknown Patient Tobacco Use Status: Never used Tobacco e-Cigarette/Vaping Use: Never Used Second Hand Smoke Exposure: No Advance Directives: No Advance Directives Information Provided: Yes Advance Directives Date on File: 05/01/22 service: No Sexual orientation: Don't Know Meds Allergies Allergy/AdvReac Type Severity Reaction Status Date / Time hydrocortisone Allergy Hives Verified 04/14/21 14:10 Penicillins Allergy Rash Verified 04/14/21 14:10 erythromycin base AdvReac Gastrointestinal Verified 04/14/21 14:10 Upset Home Medications Medication Instructions Recorded Confirmed Last Taken Type multivitamin 1 tab PO DAILY 04/11/21 04/21/22 04/21/22 History amlodipine 5 mg tablet 1 tab PO DAILY 04/21/22 04/21/22 04/21/22 History atorvastatin 40 mg tablet 1 tab PO DAILY 04/21/22 04/21/22 04/21/22 History cholecalciferol (vitamin D3) 25 25 mcg PO DAILY 04/21/22 04/21/22 Unknown History mcg (1,000 unit) tablet clonazepam 0.5 mg tablet 1 tab PO BID 04/21/22 04/21/22 04/21/22 History indapamide 1.25 mg tablet 1 tab PO QAM 04/21/22 04/21/22 04/21/22 History levothyroxine 125 mcg tablet 62.5 mcg PO SA 04/21/22 04/21/22 04/18/22 History levothyroxine 125 mcg tablet 125 mcg PO SUMOTUWETHFR 04/21/22 04/21/22 04/21/22 History Exam Exam Date and Time: May 15, 2022700 Height,Weight and Vital Signs: Height 5 ft 4 in Weight 56.699 kg Last Vital Signs Temp 98.1 F 05/15/22 06:33 Pulse 79 05/15/22 06:33 Resp 18 05/15/22 06:33 BP 126/75 05/15/22 06:33 Pulse Ox 94 05/15/22 06:33 O2 Del Method 05/15/22 06:33 Pertinent Lab Results Pertinent Lab Results: Laboratory Tests 05/15/22 05/15/22 06:10 06:48 WBC 8.6 RBC 4.67 Hgb 14.5 Hct 43.5 MCV 93.1 MCH 31.0 MCHC 33.3 RDW 11.9 Plt Count 275 MPV 11.1 Immature Gran % (Auto) 0.3 Neut % (Auto) 71.0 Lymph % (Auto) 20.1 [place] % (Auto) 7.3 Eos % (Auto) 0.8 Baso % (Auto) 0.5 Lymph # (Auto) 1.7 [place] # (Auto) 0.6 Eos # (Auto) 0.1 Baso # (Auto) 0.0 Abs Immat Gran (auto) 0.03 Absolute Neuts (auto) 6.1 Absolute Nucleated RBC 0.000 Nucleated RBC % (auto) 0.0 COVID-19 ([facility]) Negative COVID-19 Clin Com See Note Airway Mallampati Class: II (Caps multiple, one replaced ) TM Dist: >3cm Neck ROM: Full Heart: rrr Lungs: cta Assessment and Plan Assessment Anesthesia Assessment: Anesthesia Plan Discussed and Chart Reviewed Final Anesthetic Review Family History of Problems with Anesthesia: No History of Problems with Anesthesia: No NPO: Yes ASA Class: III Final Preanesthetic Review: No Changes in Pt Med Stat, Meds/Allgs Chart Reviewed and Consent Obtained/Reviewed Patient Risk: Intermediate Procedure Risk: Intermediate Anesthetic Plan Anesthetic Plan: GA Disposition: Standard PACU
--- NOTE | 2022-05-15 07:11 | MHC.SHP ---
Pre-Procedural Eval Section A Date of Service: 05/15/22 The patient is an INPATIENT: No Changes since office visit: Yes Changes in Medication and Yes Patient answered all questions; No Cold of Flu in the past 2 weeks and No New Medical Problems The History & Physical has been completed within 30 days and I have reviewed it.: Yes Section B Chief Complaint: Major depressive disorder, recurrent, Allergies: Allergies Allergy/AdvReac Type Severity Reaction Status Date / Time hydrocortisone Allergy Hives Verified 04/14/21 14:10 Penicillins Allergy Rash Verified 04/14/21 14:10 erythromycin base AdvReac Gastrointestinal Verified 04/14/21 14:10 Upset Plan I have reviewed the history and physical and performed a pertinent physical examination on my patient. No changes have occurred unless specified. Time Spent With Patient Time: Total time managing care of this patient today ____ minutes.
[2022-05-15 07:26] LABS: Alanine Aminotransferase 24 U/L (0-31); Alkaline Phosphatase 72 U/L (39-117); Anion Gap 11 (12-20); Aspartate Amino Transferase 19 U/L (5-31); Blood Urea Nitrogen 17 mg/dL (9-16); Calcium 9.6 mg/dL (8.4-10.2); Carbon Dioxide 31 mmol/L (22-29); Chloride 101 mmol/L (96-108); Creatinine Clr Calc Pharmacy 61.2; Estimated Glomerular Filt Rate > 60; Glucose Random 104 mg/dL (60-115); Potassium 3.9 mmol/L (3.3-5.1); Sodium 139 mmol/L (135-145); Total Protein 5.9 g/dL (6.5-8.0)
[2022-05-15 08:10] VITALS: BP 149/73; PULSE 82; RESP 16; TEMP 37.3; O2SAT 100
--- NOTE | 2022-05-15 08:12 | HO.ECTPROC ---
ECT Procedure Note Diagnosis/Treatment Date of Service: 05/15/22 Diagnosis: Major Depressive Disorder Previous ECT Date: 05/13/22 Current Treatment Number: 6 Treatment: Series Interval Clinical Notes: pt feeling much umproved no c/o side effects Time: Total time managing care of this patient today ____ minutes. ECT Settings Device: THYMATRON DGx Electrode Placement: Right Unilateral Program/Pulse Width: 0.50 Energy Percent: 50 Seizure Duration By EEG (in seconds): 46 Medications Administration General Anesthetic: Etomidate (12) Muscle Relaxant: Succinylcholine (80) Airway Management Airway Management: Bag Mask Ventilation Treatment Recommendations No Changes Recommended: No change Notes: transition to maintenance tx Pt Tolerated Procedure w/o Issue: Yes
[2022-05-15 08:15] VITALS: BP 93/71; PULSE 89; RESP 20; O2SAT 96
[2022-05-15 08:20] VITALS: BP 123/83; PULSE 89; RESP 20; O2SAT 94
[2022-05-15 08:25] VITALS: BP 137/71; PULSE 90; RESP 20; O2SAT 96
[2022-05-15 08:40] VITALS: BP 129/73; PULSE 81; RESP 16; TEMP 36.9; O2SAT 96
== END 2022-05-15 09:00 | disposition home or self-care (01) ==
PROVIDERS: PCP Internal Medicine; Visit Provider Psychiatry & Neurology Psychiatry
PROC: (CPT 90870; principal; 2022-05-15 07:30)
DX: F33.9 Major depressive disorder, recurrent, unspecified (principal); E78.5 Hyperlipidemia, unspecified; E03.9 Hypothyroidism, unspecified; H93.19 Tinnitus, unspecified ear; Z88.0 Allergy status to penicillin; Z88.8 Allergy status to other drugs, medicaments and biological substances; Z20.822 Contact with and (suspected) exposure to COVID-19
CPT/HCPCS: 36415; 80053; 85025; 87635; 90870; J0330; J1885; J2405

== ENCOUNTER 2022-05-29 07:50 | Day surgery (SDC) | payer BC, SELFPAY ==
[2022-05-29] VITALS (8 sets, daily range): BP systolic 115–149; BP diastolic 59–83; PULSE 80–96; RESP 13–20; TEMP 37.3–37.7; O2SAT 93–97; BMI 21.4
[2022-05-29 08:33] LABS: COVID-19 Test Negative (Negative); IDNOW Serial# BCCEAD1C
--- NOTE | 2022-05-29 08:35 | HO.ANESPROP2 ---
[facility] Active Problems Active Problems: All Active Problems (Updated 04/21/22 @ 13:53 by Brad Benoit MD) Major depressive disorder, recurrent severe without psychotic features (Acute) Generalized anxiety disorder (Acute) Major depression, recurrent (Acute) Past Medical History Medical History Hyperlipidemia Hypothyroidism Tinnitus Family History Family history of problems with anesthesia: No Surgical History Surgical History H/O shoulder surgery History of endometrial ablation Hx of foot surgery Hx of tonsillectomy History of Problems with Anesthesia: No Social History Social History Household Members: Spouse Housing: House Do you presently have visiting nurse or other home services: No Alcohol intake: unknown Patient Tobacco Use Status: Never used Tobacco e-Cigarette/Vaping Use: Never Used Second Hand Smoke Exposure: No Advance Directives: Yes Advance Directives on File: Yes Advance Directives Date on File: 05/01/22 service: No Sexual orientation: Don't Know Meds Allergies Allergy/AdvReac Type Severity Reaction Status Date / Time hydrocortisone Allergy Hives Verified 04/14/21 14:10 Penicillins Allergy Rash Verified 04/14/21 14:10 erythromycin base AdvReac Gastrointestinal Verified 04/14/21 14:10 Upset Home Medications Medication Instructions Recorded Confirmed Last Taken Type multivitamin 1 tab PO DAILY 04/11/21 04/21/22 04/21/22 History amlodipine 5 mg tablet 1 tab PO DAILY 04/21/22 04/21/22 04/21/22 History atorvastatin 40 mg tablet 1 tab PO DAILY 04/21/22 04/21/22 04/21/22 History cholecalciferol (vitamin D3) 25 25 mcg PO DAILY 04/21/22 04/21/22 Unknown History mcg (1,000 unit) tablet clonazepam 0.5 mg tablet 1 tab PO BID 04/21/22 04/21/22 04/21/22 History indapamide 1.25 mg tablet 1 tab PO QAM 04/21/22 04/21/22 04/21/22 History levothyroxine 125 mcg tablet 62.5 mcg PO SA 04/21/22 04/21/22 04/18/22 History levothyroxine 125 mcg tablet 125 mcg PO SUMOTUWETHFR 04/21/22 04/21/22 04/21/22 History Exam Exam Date and Time: May 29, 2022 0835 Height,Weight and Vital Signs: Height 5 ft 4 in Weight 56.699 kg Pertinent Lab Results Pertinent Lab Results: Laboratory Tests 05/29/22 08:00 COVID-19 ([facility]) Negative COVID-19 Clin Com See Note Airway Mallampati Class: II (Caps and crowns) TM Dist: >3cm Neck ROM: Full Heart: rrr Lungs: cta Assessment and Plan Assessment Anesthesia Assessment: Anesthesia Plan Discussed and Chart Reviewed Final Anesthetic Review Family History of Problems with Anesthesia: No History of Problems with Anesthesia: No NPO: Yes ASA Class: III Final Preanesthetic Review: No Changes in Pt Med Stat, Meds/Allgs Chart Reviewed and Consent Obtained/Reviewed Patient Risk: Intermediate Procedure Risk: Intermediate Anesthetic Plan Anesthetic Plan: GA Disposition: Standard PACU
--- NOTE | 2022-05-29 09:56 | MHC.SHP ---
Pre-Procedural Eval Section A Date of Service: 05/29/22 Changes since office visit: Yes Patient answered all questions; No Cold of Flu in the past 2 weeks, No New Medical Problems and No Changes in Medication The History & Physical has been completed within 30 days and I have reviewed it.: No Section B Chief Complaint: Major depressive disorder, recurrent, Details of Present Illness: recurrent dep Relevant Social History: None Present Medications: see Short Stay Collaborative assessment Medical History: No relevant PMH History of Previous Operations: Relevant previous surgery/procedure and date(s) (ect) Allergies: Allergies Allergy/AdvReac Type Severity Reaction Status Date / Time hydrocortisone Allergy Hives Verified 04/14/21 14:10 Penicillins Allergy Rash Verified 04/14/21 14:10 erythromycin base AdvReac Gastrointestinal Verified 04/14/21 14:10 Upset Review of Systems Sugical H&P ROS: Negative: Constitution, Cardiovascular, Respiratory and Neurological and Yes, Specify: Psychiatric (anxiety) Exam Surgical H&P Exam: Normal: Heart (rr no murmur ) and Normal: Lungs (clear no rales ) Plan Diagnosis/Plan: Unchanged I have reviewed the history and physical and performed a pertinent physical examination on my patient. No changes have occurred unless specified. Time Spent With Patient Time: Total time managing care of this patient today ____ minutes.
--- NOTE | 2022-05-29 09:58 | HO.ECTPROC ---
ECT Procedure Note Diagnosis/Treatment Date of Service: 05/29/22 Current Treatment Number: 7 Treatment: Maintenance Interval Clinical Notes: Patient with some residual anxiety but generally doing well tolerating ECT well Time: Total time managing care of this patient today ____ minutes. ECT Settings Device: THYMATRON DGx Electrode Placement: Right Unilateral Program/Pulse Width: 0.50 Energy Percent: 50 Seizure Duration By EEG (in seconds): 54 Medications Administration General Anesthetic: Etomidate (12) Muscle Relaxant: Succinylcholine (80) Ancillary Medications Analgesics: Torodol - Pre ECT Anti-emetics: Zofran - Pre ECT Airway Management Airway Management: Bag Mask Ventilation Treatment Recommendations No Changes Recommended: No change Notes: Follow-up 2 weeks patient call if relapse symptoms prior
== END 2022-05-29 11:09 | disposition home or self-care (01) ==
PROVIDERS: PCP Internal Medicine; Visit Provider Psychiatry & Neurology Psychiatry
PROC: (CPT 90870; principal; 2022-05-29 09:30)
DX: F33.2 Major depressive disorder, recurrent severe without psychotic features (principal); F41.1 Generalized anxiety disorder; I10 Essential (primary) hypertension; E03.9 Hypothyroidism, unspecified; E78.5 Hyperlipidemia, unspecified; K58.9 Irritable bowel syndrome, unspecified; Z79.899 Other long term (current) drug therapy; Z88.0 Allergy status to penicillin; Z88.1 Allergy status to other antibiotic agents; Z20.822 Contact with and (suspected) exposure to COVID-19
CPT/HCPCS: 87635; 90870; J0330; J1885; J2405

== ENCOUNTER 2022-06-12 06:01 | Day surgery (SDC) | payer BC, SELFPAY ==
[2022-06-12] VITALS (7 sets, daily range): BP systolic 127–149; BP diastolic 69–89; PULSE 78–100; RESP 16–20; TEMP 37–37.1; O2SAT 94–98; BMI 21.4
[2022-06-12 06:53] LABS: COVID-19 Test Negative (Negative); IDNOW Serial# BCCEAD1C
--- NOTE | 2022-06-12 07:39 | HO.ANESPROP2 ---
HPI - Anesthesia Eval Consult details Narrative: Major Depressive disorder PMFSH Active Problems Active Problems: All Active Problems (Updated 04/21/22 @ 13:53 by Brad Benoit MD) Major depressive disorder, recurrent severe without psychotic features (Acute) Generalized anxiety disorder (Acute) Major depression, recurrent (Acute) Past Medical History Medical History Hyperlipidemia Hypothyroidism Tinnitus Family History Family history of problems with anesthesia: No Surgical History Surgical History H/O shoulder surgery History of endometrial ablation Hx of foot surgery Hx of tonsillectomy History of Problems with Anesthesia: No Social History Social History Household Members: Spouse Housing: House Do you presently have visiting nurse or other home services: No Alcohol intake: unknown Patient Tobacco Use Status: Never used Tobacco e-Cigarette/Vaping Use: Never Used Second Hand Smoke Exposure: No Advance Directives: Yes Advance Directives on File: Yes Advance Directives Date on File: 05/01/22 service: No Sexual orientation: Don't Know Meds Allergies Allergy/AdvReac Type Severity Reaction Status Date / Time hydrocortisone Allergy Hives Verified 04/14/21 14:10 Penicillins Allergy Rash Verified 04/14/21 14:10 erythromycin base AdvReac Gastrointestinal Verified 04/14/21 14:10 Upset Home Medications Medication Instructions Recorded Confirmed Last Taken Type multivitamin 1 tab PO DAILY 04/11/21 04/21/22 04/21/22 History amlodipine 5 mg tablet 1 tab PO DAILY 04/21/22 04/21/22 04/21/22 History atorvastatin 40 mg tablet 1 tab PO DAILY 04/21/22 04/21/22 04/21/22 History cholecalciferol (vitamin D3) 25 25 mcg PO DAILY 04/21/22 04/21/22 Unknown History mcg (1,000 unit) tablet clonazepam 0.5 mg tablet 1 tab PO BID 04/21/22 04/21/22 04/21/22 History indapamide 1.25 mg tablet 1 tab PO QAM 04/21/22 04/21/22 04/21/22 History levothyroxine 125 mcg tablet 62.5 mcg PO SA 1204/21/22 04/18/22 History levothyroxine 125 mcg tablet 125 mcg PO SUMOTUWETHFR 04/21/22 04/21/22 04/21/22 History Exam Exam Date and Time: June 12, 2022 0739 Height,Weight and Vital Signs: Height 5 ft 4 in Weight 56.699 kg Last Vital Signs Temp 98.7 F 06/12/22 07:01 Pulse 78 06/12/22 07:01 Resp 16 06/12/22 07:01 BP 127/79 06/12/22 07:01 Pulse Ox 95 06/12/22 07:01 O2 Del Method 06/12/22 07:01 Pertinent Lab Results Pertinent Lab Results: Laboratory Tests 06/12/22 06:22 COVID-19 ([facility]) Negative COVID-19 Clin Com See Note Airway Mallampati Class: II TM Dist: >3cm Neck ROM: Full Loose/Missing/Broken Teeth: Yes (caps and crowns globally) Heart: [id number] Lungs: cta b/l Assessment and Plan Assessment Anesthesia Assessment: Anesthesia Plan Discussed and Chart Reviewed Final Anesthetic Review Family History of Problems with Anesthesia: No History of Problems with Anesthesia: No NPO: Yes ASA Class: III Final Preanesthetic Review: No Changes in Pt Med Stat, Meds/Allgs Chart Reviewed, Consent Obtained/Reviewed and Anes Risks/Benef Reviewed Patient Risk: Intermediate Procedure Risk: Intermediate Assessment/Block/Sedation in SS: Assess/Block/Sedation-SS Anesthetic Plan Anesthetic Plan: GA and Agree w/ Assess. and Plan Disposition: Standard PACU
--- NOTE | 2022-06-12 08:24 | MHC.SHP ---
Pre-Procedural Eval Section A Date of Service: 06/12/22 The patient is an INPATIENT: No Changes since office visit: No Cold of Flu in the past 2 weeks, No New Medical Problems, No Changes in Medication and No Patient answered all questions The History & Physical has been completed within 30 days and I have reviewed it.: Yes Section B Chief Complaint: Major depressive disorder, recurrent, Allergies: Allergies Allergy/AdvReac Type Severity Reaction Status Date / Time hydrocortisone Allergy Hives Verified 04/14/21 14:10 Penicillins Allergy Rash Verified 04/14/21 14:10 erythromycin base AdvReac Gastrointestinal Verified 04/14/21 14:10 Upset Plan I have reviewed the history and physical and performed a pertinent physical examination on my patient. No changes have occurred unless specified. Time Spent With Patient Time: Total time managing care of this patient today ____ minutes.
--- NOTE | 2022-06-12 08:25 | HO.ECTPROC ---
ECT Procedure Note Diagnosis/Treatment Date of Service: 06/12/22 Diagnosis: Major Depressive Disorder Previous ECT Date: 05/29/22 Current Treatment Number: 8 Treatment: Maintenance Interval Clinical Notes: The patient reoprted improvement of depression but still residual anxiety. No side effects with previous ECT. Time: Total time managing care of this patient today _30___ minutes. ECT Settings Device: THYMATRON DGx Electrode Placement: Right Unilateral Program/Pulse Width: 0.50 Energy Percent: 50 Seizure Duration By EEG (in seconds): 23 By Motor Observation (in seconds): 60 Medications Administration General Anesthetic: Etomidate (12) Muscle Relaxant: Succinylcholine (80) Ancillary Medications Analgesics: Torodol - Pre ECT Anti-emetics: Zofran - Pre ECT Airway Management Airway Management: Bag Mask Ventilation Treatment Recommendations No Changes Recommended: No change Pt Tolerated Procedure w/o Issue: Yes
== END 2022-06-12 10:05 | disposition home or self-care (01) ==
PROVIDERS: PCP Internal Medicine; Visit Provider Psychiatry & Neurology Psychiatry
PROC: (CPT 90870; principal; 2022-06-12 07:30)
DX: F33.9 Major depressive disorder, recurrent, unspecified (principal); F41.1 Generalized anxiety disorder; I10 Essential (primary) hypertension; E78.5 Hyperlipidemia, unspecified; D72.829 Elevated white blood cell count, unspecified; E03.9 Hypothyroidism, unspecified; Z79.899 Other long term (current) drug therapy; Z88.0 Allergy status to penicillin; Z88.8 Allergy status to other drugs, medicaments and biological substances; Z20.822 Contact with and (suspected) exposure to COVID-19
CPT/HCPCS: 87635; 90870; J0330; J1885; J2405

== ENCOUNTER 2022-07-01 06:02 | Day surgery (SDC) | payer BC, SELFPAY ==
[2022-07-01] VITALS (8 sets, daily range): BP systolic 132–149; BP diastolic 71–84; PULSE 69–100; RESP 13–20; TEMP 36.7–37; O2SAT 96–100; BMI 22.3
[2022-07-01 06:44] LABS: COVID-19 Test Negative (Negative); IDNOW Serial# 16C4AD1C
--- NOTE | 2022-07-01 07:05 | MHC.SHP ---
Pre-Procedural Eval Section A Date of Service: 07/01/22 Changes since office visit: Yes Patient answered all questions; No Cold of Flu in the past 2 weeks, No New Medical Problems and No Changes in Medication The History & Physical has been completed within 30 days and I have reviewed it.: No Section B Chief Complaint: depression Details of Present Illness: recurrent dep Relevant Social History: None Present Medications: see Short Stay Collaborative assessment Medical History: No relevant PMH History of Previous Operations: Relevant previous surgery/procedure and date(s) (ect) Allergies: Allergies Allergy/AdvReac Type Severity Reaction Status Date / Time hydrocortisone Allergy Hives Verified 04/14/21 14:10 Penicillins Allergy Rash Verified 04/14/21 14:10 erythromycin base AdvReac Gastrointestinal Verified 04/14/21 14:10 Upset Review of Systems Sugical H&P ROS: Negative: Constitution, Cardiovascular, Respiratory and Neurological and Yes, Specify: Psychiatric (anxiety) Exam Surgical H&P Exam: Normal: Heart (rr no murmur ) and Normal: Lungs (clear no rales ) Plan Diagnosis/Plan: Unchanged I have reviewed the history and physical and performed a pertinent physical examination on my patient. No changes have occurred unless specified. Time Spent With Patient Time: Total time managing care of this patient today ____ minutes.
--- NOTE | 2022-07-01 07:18 | P.CONAN_ITS ---
HPI - Anesthesia Eval Consult details Narrative: 67 yo female patient for ECT PMFSH Active Problems Active Problems: All Active Problems (Updated 04/21/22 @ 13:53 by Brad Benoit MD) Major depressive disorder, recurrent severe without psychotic features (Acute) Generalized anxiety disorder (Acute) Major depression, recurrent (Acute) Past Medical History Medical History Hyperlipidemia Hypothyroidism Tinnitus Family History Family history of problems with anesthesia: No Surgical History Surgical History H/O shoulder surgery History of endometrial ablation Hx of foot surgery Hx of tonsillectomy History of Problems with Anesthesia: No Social History Social History Household Members: Spouse Housing: House Do you presently have visiting nurse or other home services: No Alcohol intake: unknown Patient Tobacco Use Status: Never used Tobacco e-Cigarette/Vaping Use: Never Used Second Hand Smoke Exposure: No Advance Directives: Yes Advance Directives on File: Yes Advance Directives Date on File: 05/01/22 service: No Sexual orientation: Don't Know Meds Allergies Allergy/AdvReac Type Severity Reaction Status Date / Time hydrocortisone Allergy Hives Verified 04/14/21 14:10 Penicillins Allergy Rash Verified 04/14/21 14:10 erythromycin base AdvReac Gastrointestinal Verified 04/14/21 14:10 Upset Active Medications: Current Medications Lactated Ringer's (Lr) 1,000 mls @ 50 mls/hr IVCONT .Q20H [facility] Home Medications Medication Instructions Recorded Confirmed Last Taken Type multivitamin 1 tab PO DAILY 04/11/21 04/21/22 04/21/22 History amlodipine 5 mg tablet 1 tab PO DAILY 04/21/22 04/21/22 04/21/22 History atorvastatin 40 mg tablet 1 tab PO DAILY 04/21/22 04/21/22 04/21/22 History cholecalciferol (vitamin D3) 25 25 mcg PO DAILY 04/21/22 04/21/22 Unknown History mcg (1,000 unit) tablet clonazepam 0.5 mg tablet 1 tab PO BID 04/21/22 04/21/22 04/21/22 History indapamide 1.25 mg tablet 1 tab PO QAM 04/21/22 04/21/22 04/21/22 History levothyroxine 125 mcg tablet 62.5 mcg PO SA 04/21/22 04/21/22 04/18/22 History levothyroxine 125 mcg tablet 125 mcg PO SUMOTUWETHFR 04/21/22 04/21/22 04/21/22 History Exam Exam Date and Time: July 01, 2022 0718 Height,Weight and Vital Signs: Height 5 ft 4 in Weight 58.967 kg Last Vital Signs Temp 98.6 F 07/01/22 06:30 Pulse 81 07/01/22 06:30 Resp 20 07/01/22 06:30 BP 144/72 H 07/01/22 06:30 Pulse Ox 96 07/01/22 06:30 O2 Del Method 07/01/22 06:30 Pertinent Lab Results Pertinent Lab Results: Laboratory Tests 07/01/22 06:16 COVID-19 ([facility]) Negative COVID-19 Clin Com See Note Airway Mallampati Class: II TM Dist: >3cm Neck ROM: Full Loose/Missing/Broken Teeth: No (Several caps/ crowns. Intact but grinds teeth on awakening from procedure) Heart: RRR Lungs: CTAB Other: Will keep bite block in till awake Assessment and Plan Assessment Anesthesia Assessment: Anesthesia Plan Discussed and Chart Reviewed Final Anesthetic Review Family History of Problems with Anesthesia: No History of Problems with Anesthesia: No NPO: Yes ASA Class: III Final Preanesthetic Review: No Changes in Pt Med Stat, Meds/Allgs Chart Reviewed, Consent Obtained/Reviewed and Anes Risks/Benef Reviewed Patient Risk: Intermediate Procedure Risk: Intermediate Assessment/Block/Sedation in SS: Assess/Block/Sedation- Anesthetic Plan Anesthetic Plan: GA Disposition: Standard PACU
--- NOTE | 2022-07-01 07:28 | P.PCN_ITS ---
ECT Procedure Note Diagnosis/Treatment Date of Service: 07/01/22 Diagnosis: Major Depressive Disorder and Other (generalized anxiety) Previous ECT Date: 06/12/22 Current Treatment Number: 9 Treatment: Other (continuation) Interval Clinical Notes: Patient has had some breakthrough symptoms of anxiety over the past 1-2 weeks Still much improved from original presentation Time: Total time managing care of this patient today ____ minutes. ECT Settings Device: THYMATRON DGx Electrode Placement: Right Unilateral Program/Pulse Width: 0.50 Energy Percent: 50 Seizure Duration By EEG (in seconds): 71 Medications Administration General Anesthetic: Etomidate (12) Muscle Relaxant: Succinylcholine (100) Ancillary Medications Analgesics: Torodol - Pre ECT Anti-emetics: Zofran - Pre ECT Airway Management Airway Management: Bag Mask Ventilation Treatment Recommendations No Changes Recommended: No change Notes: Patient without significant complaints of side effects at this time mood improved but anxiety symptoms have returned has had the best response to loan atment with the ECT follow-up treatment in 2 weeks Pt Tolerated Procedure w/o Issue: Yes
== END 2022-07-01 08:51 | disposition home or self-care (01) ==
PROVIDERS: PCP Internal Medicine; Visit Provider Psychiatry & Neurology Psychiatry
PROC: (CPT 90870; principal; 2022-07-01 07:00)
DX: F33.2 Major depressive disorder, recurrent severe without psychotic features (principal); F41.1 Generalized anxiety disorder; E78.5 Hyperlipidemia, unspecified; H93.19 Tinnitus, unspecified ear; Z79.899 Other long term (current) drug therapy; Z88.0 Allergy status to penicillin; Z88.8 Allergy status to other drugs, medicaments and biological substances; Z20.822 Contact with and (suspected) exposure to COVID-19
CPT/HCPCS: 87635; 90870; J0330; J1885; J2405

== ENCOUNTER → 2022-07-06 15:39 | Outpatient (BNVA) | payer BC, SELFPAY | PROVIDERS: PCP Internal Medicine; Visit Provider Psychiatry & Neurology Psychiatry | DX: Z13.89 Encounter for screening for other disorder (principal) ==

== ENCOUNTER 2022-08-05 06:03 | Day surgery (SDC) | payer BC, SELFPAY ==
[2022-08-05] VITALS (8 sets, daily range): BP systolic 109–141; BP diastolic 52–74; PULSE 68–88; RESP 14–20; TEMP 36.8–37; O2SAT 96–100; BMI 22.3
[2022-08-05 06:41] LABS: COVID-19 Test Negative (Negative); IDNOW Serial# BCCEAD1C
--- NOTE | 2022-08-05 06:41 | HO.ANESPROP2 ---
[facility] Active Problems Active Problems: All Active Problems (Updated 04/21/22 @ 13:53 by Brad Benoit MD) Major depressive disorder, recurrent severe without psychotic features (Acute) Generalized anxiety disorder (Acute) Major depression, recurrent (Acute) Past Medical History Medical History Hyperlipidemia Hypothyroidism Tinnitus Family History Family history of problems with anesthesia: No Surgical History Surgical History H/O shoulder surgery History of endometrial ablation Hx of foot surgery Hx of tonsillectomy History of Problems with Anesthesia: No Social History Social History Household Members: Spouse Housing: House Do you presently have visiting nurse or other home services: No Alcohol intake: unknown Patient Tobacco Use Status: Never used Tobacco e-Cigarette/Vaping Use: Never Used Second Hand Smoke Exposure: No Advance Directives: Yes Advance Directives on File: Yes Advance Directives Date on File: 05/01/22 service: No Sexual orientation: Don't Know Meds Allergies Allergy/AdvReac Type Severity Reaction Status Date / Time hydrocortisone Allergy Hives Verified 04/14/21 14:10 Penicillins Allergy Rash Verified 04/14/21 14:10 erythromycin base AdvReac Gastrointestinal Verified 04/14/21 14:10 Upset Active Medications: Current Medications Lactated Ringer's (Lr) 1,000 mls @ 50 mls/hr IVCONT .Q20H [facility] Home Medications Medication Instructions Recorded Confirmed Last Taken Type multivitamin 1 tab PO DAILY 04/11/21 04/21/22 04/21/22 History amlodipine 5 mg tablet 1 tab PO DAILY 04/21/22 04/21/22 04/21/22 History atorvastatin 40 mg tablet 1 tab PO DAILY 04/21/22 04/21/22 04/21/22 History cholecalciferol (vitamin D3) 25 25 mcg PO DAILY 04/21/22 04/21/22 Unknown History mcg (1,000 unit) tablet clonazepam 0.5 mg tablet 1 tab PO BID 04/21/22 04/21/22 04/21/22 History indapamide 1.25 mg tablet 1 tab PO QAM 04/21/22 04/21/22 04/21/22 History levothyroxine 125 mcg tablet 62.5 mcg PO SA 04/21/22 04/21/22 04/18/22 History levothyroxine 125 mcg tablet 125 mcg PO SUMOTUWETHFR 04/21/22 04/21/22 04/21/22 History Exam Exam Date and Time: August 05, 2022 0641 Height,Weight and Vital Signs: Height 5 ft 4 in Weight 58.967 kg Last Vital Signs Temp 98.4 F 08/05/22 06:31 Pulse 68 08/05/22 06:31 Resp 20 08/05/22 06:31 BP 129/74 08/05/22 06:31 Pulse Ox 97 08/05/22 06:31 O2 Del Method Room Air 08/05/22 06:31 Airway Mallampati Class: II (multiple) TM Dist: >3cm Heart: rrr Lungs: cta Assessment and Plan Assessment Anesthesia Assessment: Anesthesia Plan Discussed and Chart Reviewed Final Anesthetic Review Family History of Problems with Anesthesia: No History of Problems with Anesthesia: No NPO: Yes ASA Class: III Final Preanesthetic Review: No Changes in Pt Med Stat, Meds/Allgs Chart Reviewed and Consent Obtained/Reviewed Patient Risk: Intermediate Procedure Risk: Intermediate Anesthetic Plan Anesthetic Plan: GA Disposition: Standard PACU
--- NOTE | 2022-08-05 07:26 | MHC.SHP ---
Pre-Procedural Eval Section A Date of Service: 08/05/22 Section B Chief Complaint: depression Details of Present Illness: recurent depression inc anxiety sx Present Medications: see Short Stay Collaborative assessment Allergies: Allergies Allergy/AdvReac Type Severity Reaction Status Date / Time hydrocortisone Allergy Hives Verified 04/14/21 14:10 Penicillins Allergy Rash Verified 04/14/21 14:10 erythromycin base AdvReac Gastrointestinal Verified 04/14/21 14:10 Upset Review of Systems Sugical H&P ROS: Negative: Cardiovascular and Respiratory Exam Surgical H&P Exam: Normal: Heart and Normal: Lungs Plan Diagnosis/Plan: Unchanged I have reviewed the history and physical and performed a pertinent physical examination on my patient. No changes have occurred unless specified. Time Spent With Patient Time: Total time managing care of this patient today ____ minutes.
--- NOTE | 2022-08-05 10:19 | HO.ECTPROC ---
ECT Procedure Note Diagnosis/Treatment Date of Service: 08/04/22 Diagnosis: Major Depressive Disorder Previous ECT Date: 07/01/22 Current Treatment Number: 10 Treatment: Maintenance Interval Clinical Notes: Patient has increased anxiety ongoing thought that she cannot enjoy things. Did seem better initially with ECT has now been on Seroquel Time: Total time managing care of this patient today ____ minutes. ECT Settings Device: THYMATRON DGx Electrode Placement: Right Unilateral Program/Pulse Width: 0.50 Energy Percent: 50 Seizure Duration By EEG (in seconds): 74 Medications Administration General Anesthetic: Etomidate (12) Muscle Relaxant: Succinylcholine (100) Ancillary Medications Analgesics: Torodol - Pre ECT Anti-emetics: Zofran - Pre ECT Airway Management Airway Management: Bag Mask Ventilation Treatment Recommendations No Changes Recommended: No change Electrode Placement: Right Unilateral Notes: Case reviewed with Christine Damian patient psychiatric provider discussed possibility of MAO I patient did seem better with initial treatment follow-up treatment 2-3 weeks y Pt Tolerated Procedure w/o Issue: Yes
--- NOTE | 2022-08-12 17:33 | HO.ECTPROC ---
ECT Procedure Note Diagnosis/Treatment Date of Service: 08/05/22 Diagnosis: Bipolar disorder Time: Total time managing care of this patient today ____ minutes. ECT Settings Device: THYMATRON DGx
== END 2022-08-05 09:00 | disposition home or self-care (01) ==
PROVIDERS: PCP Internal Medicine; Visit Provider Psychiatry & Neurology Psychiatry
PROC: (CPT 90870; principal; 2022-08-05 07:00)
DX: F33.2 Major depressive disorder, recurrent severe without psychotic features (principal); F33.9 Major depressive disorder, recurrent, unspecified; F41.1 Generalized anxiety disorder; E78.5 Hyperlipidemia, unspecified; E03.9 Hypothyroidism, unspecified; H93.19 Tinnitus, unspecified ear; Z79.899 Other long term (current) drug therapy; Z88.0 Allergy status to penicillin; Z88.8 Allergy status to other drugs, medicaments and biological substances; Z87.891 Personal history of nicotine dependence; Z20.822 Contact with and (suspected) exposure to COVID-19
CPT/HCPCS: 87635; 90870; J0330; J1885; J2250; J2405

== ENCOUNTER 2022-08-25 13:45 | Outpatient (RCR) | payer BC, SELFPAY ==
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
[2022-08-10 13:14] VITALS: BMI 23.3
--- NOTE | 2022-08-10 14:32 | PC.ADMIT ---
Patient is a 67 year old female who was referred to [facility] by her prescriber Judie Stanley APRN d/t severe anxiety with panic, fear and depression. Reports passive SI stated she envisions herself in the obituaries . Denied plan or intent to kill herself. Reports her family is her protective factor. Reports her anxiety and depression prevent her from working. She has not been able to work for the past year. She reports having a difficult time adjusting to this as her and friends work. She also reports since Covid she has not been able to do other activities that she has thoughts about doing including volunteering. She mourns the life she used to have. She reports worrying about her mother who is elderly and getting out of the hospital today. She helps her mother with a pill organizer that she fills for her weekly. Patient reports she is currently doing ECT treatments every 2 weeks to help with her depressive symptoms. Patient reports 5 years ago she was highly functioning and has not been able to maintain that level of functioning since. Patient is alert and oriented x4. Calm and cooperative. Presents with depressed mood and anxious affect. Feels nothing is going to work. Medications reconciled with patient and patient's pharmacy. Reports she is taking medications as prescribed.
--- NOTE | 2022-08-11 15:08 | HO.PHP ---
I called the clients therapist Sidra Garcia re client started the program.
--- NOTE | 2022-08-13 15:34 | HO.PHP ---
The clients case was reviewed and opened in treatment team
--- NOTE | 2022-08-17 10:55 | P.PNPSP_ITS ---
Subjective Subjective Date of Service: 08/17/22 Reason For Visit: MDD,SUNITA Medical Problems Affecting Mental Status: No Interim History: Reports depressed mood, increased anxiety. States she feels hopeless. No SI today, states that she feels safe. Not sure if partial program is helping. Feels current medications are not working to help manage anxiety. Reports feeling cramps back of shins, believes it is from the Seroquel. Medication Compliance: Yes Side effects from medications: Yes (Back of shins cramping (QUETIAPINE)) Attending Groups: Yes Review of Systems Acute medical concerns: No Medical Review of Systems: changed Review of Systems Review of Systems Leg discomfort, posterior shins. Yes all other systems are reviewed and are negative Constitutional: Reports no additional constitutional complaints Mental Status Exam Mental Status Exam Narrative: Well-developed, well-nourished female, in NAD. Patient Appearance: Well Grooomed Patient Orientation: Person, Place, Time and Situation Level of Consciousness: Appropriate Patient Behavior: Appropriate, Cooperative and Good Eye Contact Mood Description: Depressed, Anxious and Nervous Affect Description: Depressed and Anxious Patient Cognition Impaired: No Ability to Follow Directions: Good Speech Pattern: Clear and Appropriate Memory Description: Recent Impaired (reports since started receiving ECT has had difficulty with memory) Hallucinations: None Delusions: Not Present Thought Process: Intact Depressive Symptoms: Increased Anxiety, Difficulty Sleeping, Loss of Int. in Activity, Hopelessness, Feelings of Guilt, Unhappiness and Thoughts of /Suicide Judgement: Fair Diagnostics Vital Signs (24Hr): BMI result Body Mass Index 23.3 Assessment & Plan Assessment & Plan (1) Major depression, recurrent: Status: Acute Code(s): F33.9 - Major depressive disorder, recurrent, unspecified Assessment and Plan: Continues with depressed mood, increased anxiety. States that her son came over for , she had difficulty relaxing. Was able to have dinner, complete a puzzle with him. States she feels hopeless. No SI today, states that she feels safe. Not sure if partial program is helping. Feels current medications are not working to help manage anxiety. We discussed medications in detail, including daily tapering off of Viibryd, with a plan to start emsam. She sees her outpatient provider later this week, she states that she will discuss this with her as outpatient. Patient is agreeable to changing clonazepam at this time, in order to help better manage anxiety. Reports feeling cramps back of shins, believes it is from the Seroquel. We reviewed side effects, discussed stopping med. She was in agreement with this. She has ECT scheduled this Wednesday. (2) Generalized anxiety disorder: Status: Acute Code(s): F41.1 - Generalized anxiety disorder Plan 1. Continue with current [facility] plan of care. 2. Stop quetiapine. 3. Increase clonazepam to 1 mg b.i.d.. 4. Continue other medications as prescribed. 5. Follow-up as per protocol. Patient educated on: diagnosis, medication risk/benefits and therapeutic strategies Informed Consent: understands Reason for contiued partial hosp. stay Substantial Risk for: harm to self, inability to function and rapid decompensation Certification I certify that partial hospital treatment is medically necessary due to the symptoms and problems resulting from the patient's mental illness and the failure to treat the patient at the partial hospital level of care would likely result in the patient requiring inpatient psychiatric care which could not be prevented at a less intensive level of care. Total time managing care of this patient today _20___ minutes. Discharge Plan Discharge Attending provider: Naren Wharton Medications: New clonazepam 1 mg tablet 1 mg PO BID Qty: 14 0RF Discontinued quetiapine 25 mg tablet 25 mg PO TID Rx Instructions: Take at 7:00 am, 3:00 pm,and 9:30 pm. quetiapine 50 mg tablet 50 mg PO BEDTIME clonazepam 0.5 mg tablet 1 tab PO TID No Action atorvastatin 10 mg Tablet 10 mg PO BEDTIME metoprolol tartrate 25 mg tablet 25 mg PO BID vilazodone 40 mg tablet 40 mg PO DAILY 30 Days Qty: 30 0RF Rx Instructions: must administer with a meal/food amlodipine 5 mg tablet 1 tab PO DAILY levothyroxine 125 mcg tablet 125 mcg PO SUMOTUWETHFR levothyroxine 125 mcg tablet 62.5 mcg PO SA Rx Instructions: Take 1/2 tab on .
--- NOTE | 2022-08-25 09:33 | HO.PHPPROGNO ---
Subjective Subjective Date of Service: 08/25/22 Reason For Visit: MDD,SUNITA Medical Problems Affecting Mental Status: No Interim History: Continues with Anxious mood and affect. Reports no improvement, not finding program helpful. Denies SI, no safety concerns. Feels Klonopin is not helping. Asks to be discharged today. Medication Compliance: Yes Side effects from medications: No Attending Groups: Yes Review of Systems Acute medical concerns: No Medical Review of Systems: unchanged Review of Systems Review of Systems Yes all other systems are reviewed and are negative Constitutional: Reports no additional constitutional complaints Mental Status Exam Mental Status Exam Narrative: Well-developed, well-nourished female, in NAD. Patient Appearance: Well Grooomed Patient Orientation: Person, Place, Time and Situation Level of Consciousness: Appropriate Patient Behavior: Appropriate, Cooperative and Good Eye Contact Mood Description: Depressed, Anxious and Nervous Affect Description: Depressed and Anxious Patient Cognition Impaired: No Ability to Follow Directions: Good Speech Pattern: Clear and Appropriate Memory Description: Recent Impaired (reports since started receiving ECT has had difficulty with memory) Hallucinations: None Delusions: Not Present Thought Process: Intact Thought Content: positive for Perseveration and positive for Preoccupation (catastrophic thinking, focused on anxiety) Depressive Symptoms: Increased Anxiety, Difficulty Sleeping, Loss of Int. in Activity, Hopelessness, Feelings of Guilt, Unhappiness and Thoughts of /Suicide Judgement: Good Diagnostics Vital Signs (24Hr): BMI result Body Mass Index 23.3 Assessment & Plan Assessment & Plan (1) Generalized anxiety disorder: Status: Acute Code(s): F41.1 - Generalized anxiety disorder Assessment and Plan: Patient continues with anxious mood an affect. Reports no improvement. Continues to perseverate, focus on anxiety. Not finding program helpful, wishes to discharge today. Feels safe, denies SI. Express anxiety over ECT, emsam. Patient was encouraged to utilize grounding techniques, walk daily, use other methods for anxiety reduction. She states she has been trying these and does not find them helpful. Believe she needs to change medications, states that she does not find Klonopin helpful. She will discuss this going further with her outpatient providers. She was instructed to obtain crisis eval in ED or to call crisis number if at any time she feels unsafe. She states that she would do this. She has ECT scheduled for tomorrow with Dr. Lee, and appointment with her outpatient prescriber Christine Stanley next week. (2) Major depression, recurrent: Status: Acute Code(s): F33.9 - Major depressive disorder, recurrent, unspecified Plan 1. Patient to discharge from [facility] today. 2. Patient to follow-up with outpatient providers going forward. Patient educated on: diagnosis, medication risk/benefits and therapeutic strategies Informed Consent: understands Reason for contiued partial hosp. stay Substantial Risk for: stable for discharge Certification I certify that partial hospital treatment is medically necessary due to the symptoms and problems resulting from the patient's mental illness and the failure to treat the patient at the partial hospital level of care would likely result in the patient requiring inpatient psychiatric care which could not be prevented at a less intensive level of care. Total time managing care of this patient today _20___ minutes. Discharge Plan Discharge Attending provider: Naren Wharton Medications: New clonazepam 1 mg tablet 1 mg PO BID Qty: 14 0RF Discontinued quetiapine 25 mg tablet 25 mg PO TID Rx Instructions: Take at 7:00 am, 3:00 pm,and 9:30 pm. quetiapine 50 mg tablet 50 mg PO BEDTIME clonazepam 0.5 mg tablet 1 tab PO TID No Action atorvastatin 10 mg Tablet 10 mg PO BEDTIME metoprolol tartrate 25 mg tablet 25 mg PO BID vilazodone 40 mg tablet 40 mg PO DAILY 30 Days Qty: 30 0RF Rx Instructions: must administer with a meal/food amlodipine 5 mg tablet 1 tab PO DAILY levothyroxine 125 mcg tablet 125 mcg PO SUMOTUWETHFR levothyroxine 125 mcg tablet 62.5 mcg PO SA Rx Instructions: Take 1/2 tab on . Stand Alone Forms: Patient Portal Discharge page Patient Education: Depression (DC), Anxiety (GEN)
== END 2022-08-25 23:59 | disposition home or self-care (01) ==
LOC: HO.PHPA 13:45
PROVIDERS: Visit Provider Psychiatry & Neurology Psychiatry
DX: F33.2 Major depressive disorder, recurrent severe without psychotic features (principal); F41.1 Generalized anxiety disorder
CPT/HCPCS: 90791; 90853

== ENCOUNTER 2022-08-26 06:03 | Day surgery (SDC) | payer BC, SELFPAY ==
[2022-08-26] VITALS (7 sets, daily range): BP systolic 103–155; BP diastolic 54–86; PULSE 66–86; RESP 12–18; TEMP 36.8–36.9; O2SAT 96–99; BMI 23.1
[2022-08-26 06:44] LABS: COVID-19 Test Negative (Negative); IDNOW Serial# 6674DD1D
--- NOTE | 2022-08-26 06:55 | P.CONAN_ITS ---
FORMERLY [facility], [facility] Active Problems Active Problems: All Active Problems (Updated 08/10/22 @ 13:07 by Roxie Stone RN) Major depression, recurrent (Acute) Generalized anxiety disorder (Acute) Major depressive disorder, recurrent severe without psychotic features (Acute) Past Medical History Medical History (Updated 08/10/22 @ 13:07 by Roxie Stone RN) Hyperlipidemia Hypertension Hypothyroidism Tinnitus Family History Family history of problems with anesthesia: No Surgical History Surgical History H/O shoulder surgery History of endometrial ablation Hx of foot surgery Hx of tonsillectomy History of Problems with Anesthesia: No Social History Social History Household Members: Spouse Housing: House Do you presently have visiting nurse or other home services: No Alcohol intake: unknown Patient Tobacco Use Status: Former Tobacco user e-Cigarette/Vaping Use: Never Used Second Hand Smoke Exposure: No Advance Directives: Yes Advance Directives on File: Yes Advance Directives Date on File: 05/01/22 service: No Sexual orientation: Don't Know Meds Allergies Allergy/AdvReac Type Severity Reaction Status Date / Time hydrocortisone Allergy Hives Verified 04/14/21 14:10 Penicillins Allergy Rash Verified 04/14/21 14:10 erythromycin base AdvReac Gastrointestinal Verified 04/14/21 14:10 Upset Home Medications Medication Instructions Recorded Confirmed Last Taken Type amlodipine 5 mg tablet 1 tab PO DAILY 04/21/22 08/10/22 08/10/22 07:00 History levothyroxine 125 mcg tablet 62.5 mcg PO SA 04/21/22 08/10/22 08/08/22 History levothyroxine 125 mcg tablet 125 mcg PO SUMOTUWETHFR 04/21/22 08/10/22 08/10/22 06:00 History atorvastatin 10 mg tablet 10 mg PO BEDTIME 08/10/22 08/10/22 08/09/22 21:00 History metoprolol tartrate 25 mg tablet 25 mg PO BID 08/10/22 08/10/22 08/10/22 07:00 History trazodone 50 mg tablet 25 mg PO BEDTIME PRN Insomnia 08/25/22 08/25/22 Unknown History Exam Exam Date and Time: August 26, [id number] Height,Weight and Vital Signs: Height 5 ft 4 in Weight 61.235 kg Last Vital Signs Temp 98.2 F 08/26/22 06:38 Pulse 66 08/26/22 06:38 Resp 18 08/26/22 06:38 BP 132/71 08/26/22 06:38 Pulse Ox 98 08/26/22 06:38 O2 Del Method Room Air 08/26/22 06:38 Pertinent Lab Results Pertinent Lab Results: Laboratory Tests 08/26/22 06:18 COVID-19 ([facility]) Negative COVID-19 Clin Com See Note Airway Mallampati Class: II TM Dist: >3cm Neck ROM: Full Assessment and Plan Assessment Anesthesia Assessment: Anesthesia Plan Discussed and Chart Reviewed Final Anesthetic Review Family History of Problems with Anesthesia: No History of Problems with Anesthesia: No NPO: Yes ASA Class: III Final Preanesthetic Review: No Changes in Pt Med Stat, Meds/Allgs Chart Reviewed, Consent Obtained/Reviewed and Anes Risks/Benef Reviewed Patient Risk: Low Procedure Risk: Low Anesthetic Plan Anesthetic Plan: GA Disposition: Standard PACU
--- NOTE | 2022-08-26 07:05 | MHC.SHP ---
Pre-Procedural Eval Section A Date of Service: 08/26/22 The patient is an INPATIENT: No Changes since office visit: Yes Changes in Medication and Yes Patient answered all questions; No Cold of Flu in the past 2 weeks and No New Medical Problems The History & Physical has been completed within 30 days and I have reviewed it.: No Section B Chief Complaint: Major depressive disorder, recurrent, psych sym Details of Present Illness: recurent depression inc anxiety sx Present Medications: see Short Stay Collaborative assessment Allergies: Allergies Allergy/AdvReac Type Severity Reaction Status Date / Time hydrocortisone Allergy Hives Verified 04/14/21 14:10 Penicillins Allergy Rash Verified 04/14/21 14:10 erythromycin base AdvReac Gastrointestinal Verified 04/14/21 14:10 Upset Review of Systems Sugical H&P ROS: Negative: Cardiovascular and Respiratory Exam Surgical H&P Exam: Normal: Heart and Normal: Lungs Plan Diagnosis/Plan: Unchanged I have reviewed the history and physical and performed a pertinent physical examination on my patient. No changes have occurred unless specified. Time Spent With Patient Time: Total time managing care of this patient today ____ minutes.
--- NOTE | 2022-08-26 07:52 | HO.ECTPROC ---
ECT Procedure Note Diagnosis/Treatment Date of Service: 08/26/22 Diagnosis: Major Depressive Disorder (WITH SEVERE ANXIETY ) Previous ECT Date: 08/05/22 Treatment: Other (CONTINUATION) Interval Clinical Notes: PT HAS D/C SEROQUEL ON KLONAPIN 1 BID Time: Total time managing care of this patient today _35___ minutes. ECT Settings Device: THYMATRON DGx Electrode Placement: Right Unilateral Program/Pulse Width: 0.50 Energy Percent: 75 Seizure Duration By EEG (in seconds): 73 Medications Administration General Anesthetic: Etomidate (12) Muscle Relaxant: Succinylcholine (100) Ancillary Medications Analgesics: Torodol - Pre ECT (15) Anti-emetics: Zofran - Pre ECT Miscillaneous Medications: Propofol (30) Airway Management Airway Management: Bag Mask Ventilation Treatment Recommendations No Changes Recommended: No change Notes: F/U TX 3 WKS MAY HELP IF VILAZADONE TAPERED Pt Tolerated Procedure w/o Issue: Yes
== END 2022-08-26 09:00 | disposition home or self-care (01) ==
PROVIDERS: PCP Internal Medicine; Visit Provider Psychiatry & Neurology Psychiatry
PROC: (CPT 90870; principal; 2022-08-26 07:30)
DX: F33.9 Major depressive disorder, recurrent, unspecified (principal); F41.8 Other specified anxiety disorders; I10 Essential (primary) hypertension; E78.5 Hyperlipidemia, unspecified; E03.9 Hypothyroidism, unspecified; H93.19 Tinnitus, unspecified ear; Z79.899 Other long term (current) drug therapy; Z88.0 Allergy status to penicillin; Z88.8 Allergy status to other drugs, medicaments and biological substances; Z20.822 Contact with and (suspected) exposure to COVID-19
CPT/HCPCS: 87635; 90870; J0330; J1885; J2405